=== PATIENT | male | born 1935 | race Two or more races ===

== ENCOUNTER 2020-04-02 14:20 | Inpatient (IN) | payer MEDICARE ==
[~2020-04-02] VITALS: Ht 172.7 cm; Wt 91.4 kg
[2020-04-02 16:22] VITALS: BP 162/75
[2020-04-02] MEDS ORDERED: HALO2TAB PO (16:43)
[2020-04-02] MEDS ORDERED: ATOR40TA59 PO (16:43)
[2020-04-02] MEDS ORDERED: DEXT1DRO7 OP (16:43)
[2020-04-02] MEDS ORDERED: TAMS0.4C97 PO (16:43)
[2020-04-02] MEDS ORDERED: THIA100T57 PO (16:43)
[2020-04-02] MEDS ORDERED: CYANOCOBALAMIN (16:43)
[2020-04-02] MEDS ORDERED: NAPR-634 PO (16:43)
[2020-04-02] MEDS ORDERED: QUET25TA5 PO (16:43)
[2020-04-02] MEDS ORDERED: MELA5TAB20 PO (16:43)
[2020-04-02] MEDS ORDERED: SODI45SP4 NS (16:43)
[2020-04-02] MEDS ORDERED: MAG-27 PO (16:43)
[2020-04-02] MEDS ORDERED: MEMA10TA PO (16:43)
[2020-04-02] MEDS ORDERED: AMLO-187 PO (16:43)
[2020-04-02] MEDS ORDERED: LOSA50TA86 PO (16:43)
[2020-04-02] MEDS ORDERED: TRAZ-120 PO (16:43)
[2020-04-02] MEDS ORDERED: FLUT1DIS3 IH (16:43)
[2020-04-02] MEDS ORDERED: LOPE2TAB27 PO (16:43)
[2020-04-02] MEDS ORDERED: ASPI-630 PO (16:43)
[2020-04-02] MEDS ORDERED: FLUT9.9S NS (16:43)
[2020-04-02] MEDS ORDERED: DONE5TAB14 PO (16:43)
[2020-04-02] MEDS ORDERED: ATEN25TA42 PO (16:43)
[2020-04-02] MEDS ORDERED: POLYVINYL ALCOHOL/POVIDONE/PF OPHTH SOLUTION DROPERETTE. OU PRN (17:00)
[2020-04-02] MEDS ORDERED: HALOPERIDOL 1 MG TABLET PO PRN (17:00)
[2020-04-02 18:23] LABS: BASO % 0 % (0-3); EOS # 0.1 x10^3/uL (0.0-0.7); EOS % 1 % (0-3); HEMATOCRIT 35.2 % (39.0-53.0); HEMOGLOBIN 11.6 g/dL (13.0-17.5); LYMPH # 0.7 x10^3/uL (1.0-4.8); LYMPH % 14 % (24-48); MEAN CORPUSCULAR HEMOGLOBIN 30 pg (25-35); MEAN CORPUSCULAR HGB CONC 33 g/dL (31-37); MEAN CORPUSCULAR VOLUME 92 fL (79-100); MONO # 0.4 x10^3/uL (0.0-1.1); MONO % 7 % (0-9); NEUT # 3.8 x10^3uL (1.8-7.7); NEUT % 77 % (31-73); PLATELET COUNT 211 x10^3/uL (140-400); RED CELL DISTRIBUTION WIDTH 14.3 % (11.5-14.5); WHITE BLOOD COUNT 4.9 x10^3/uL (4.0-11.0)
[2020-04-02 18:39] LABS: ALBUMIN 2.9 g/dL (3.4-5.0); ALBUMIN/GLOBULIN RATIO 0.9 (1.0-1.7); CALCIUM 8.3 mg/dL (8.5-10.1); CREATININE 0.9 mg/dL (0.7-1.3); GFR 80.8; MAGNESIUM 1.8 mg/dL (1.8-2.4); TOTAL BILIRUBIN 0.9 mg/dL (0.2-1.0); TOTAL PROTEIN 6.3 g/dL (6.4-8.2)
[2020-04-02 19:48] VITALS: BP 129/69
[2020-04-02] MEDS: LORazepam 1 MG TABLET PO PRN (20:16)
[2020-04-02] MEDS ORDERED: DONEPEZIL HCL 5 MG TABLET. PO SCH (21:00)
[2020-04-02 23:47] VITALS: BP 165/82
[2020-04-03] MEDS: LORazepam 1 MG TABLET PO PRN ×3 (01:18→08:36)
[2020-04-03 02:31] LABS: BILIRUBIN,URINE NEG (NEG); CLARITY,URINE CLEAR; COLOR,URINE YELLOW; GLUCOSE,URINE NEG (NEG)
[2020-04-03 02:32] LABS: BACTERIA,URINE 0 /HPF (0-FEW); NITRITE,URINE NEG (NEG); RBC,URINE 0 /HPF (0-2); WBC,URINE OCC /HPF (0-4)
[2020-04-03 06:19] VITALS: BP 172/94
[2020-04-03] MEDS ORDERED: LOSARTAN 50 MG TABLET. PO SCH (09:00)
[2020-04-03] MEDS ORDERED: ASPIRIN CHEWABLE 81 MG TABLET. PO SCH (09:00)
[2020-04-03] MEDS ORDERED: TAMSULOSIN 0.4 MG CAP.ER.24H. PO SCH (09:00)
[2020-04-03] MEDS ORDERED: amLODIPine BESYLATE 10 MG TABLET PO SCH (09:00)
[2020-04-03] MEDS ORDERED: ATENOLOL 25 MG TABLET PO SCH (09:00)
[2020-04-03] MEDS ORDERED: FUROSEMIDE 40 MG TABLET PO ONE (09:45)
--- NOTE | 2020-04-03 10:11 | HP ---
ADMIT DATE: 04/02/2020 ATTENDING PHYSICIAN: Dr. Dougherty. HISTORY OF PRESENT ILLNESS: We are asked to see this patient for a medical admission, screening prior to going to the Senior Behavior Unit. The patient is an 84-year-old gentleman, from a group home facility in [place]. He has been quite agitated and acting out. Does not remember much. Does not remember he had breakfast this morning. He is having hallucinations, impulse, agitated and restless. He is slated to go to the Senior Behavior Unit. PAST MEDICAL HISTORY: Gleaned from the chart. He cannot provide much history. He has had profound dementia, frequent falls, benign prostatic hypertrophy, hyperlipidemia, essential hypertension, herpes zoster, vitamin B12 deficiency, gout, chronic pedal edema and generalized debilitation. ALLERGIES: HE HAS ALLERGIES TO PENICILLIN, INDOMETHACIN AND LISINOPRIL NOTED. CURRENT MEDICATIONS: He is currently on scheduled amlodipine, aspirin, atenolol, Lipitor, Aricept, fluticasone, Haldol, loperamide, losartan, melatonin, Namenda, naproxen, Seroquel, Flomax, thiamine, trazodone. FAMILY HISTORY: Unobtainable. REVIEW OF SYSTEMS: Unobtainable. PHYSICAL EXAMINATION: GENERAL: When I saw him, this is a confused elderly gentleman who is somewhat cooperative. He is aware of person. INITIAL VITAL SIGNS: Showed a blood pressure between 129 and 172 systolic, heart rate between 80 and 100. He was afebrile, oxygen saturation 93% on room air. HEENT: Head is without trauma. Pupils are reactive. Sclerae are nonicteric. Oropharynx is clear. NECK: Supple, no bruits. LUNGS: Good breath sounds. CARDIOVASCULAR: Showed regular heart tones. No gallops. ABDOMEN: Soft, obese, protuberant. EXTREMITIES: Showed 3+ pitting edema extending up to his thighs. SKIN: Warm and dry. NEUROLOGIC: His speech is fluent. He is profoundly demented. We cannot assess his gait or complete the full neurologic exam due to his confusion. PERTINENT LABORATORY STUDIES: Urinalysis, pH is 8.0, specific gravity 1.020, hemoglobin 11.6 g/dL with a white count of 4900. Sodium is 141 mEq, creatinine is 0.9 mg percent, nonfasting blood sugar 159. Serology and coronavirus swabs are pending. ASSESSMENT: 1. An 84-year-old gentleman with profound dementia and behavioral issues slated to go to the Senior Behavior unit. 2. Labile hypertension. 3. Behavioral issues. 4. Degenerative arthritis. 5. Hyperlipidemia. PLAN: 1. I have reviewed his medications. I have stopped the Naprosyn, which causes fluid retention. 2. I have given him intermittent Lasix to help with the excess third space fluid in his ankle. 3. Continue other home meds. 4. Diet as tolerated. 5. Await COVID results, when that is negative, he can go upstairs to the Senior Behavior Unit. VARGAS DOUGHERTY MD DR: PAULINE/marlon JOB#: [id number] / [id number]
[2020-04-03 11:15] VITALS: BP 148/80
--- NOTE | 2020-04-03 12:25 | EKG ---
[address] [address] Test Date: 2020-04-03 Test Time: 12:03:30 Pat Name: ULISES SONI Department: Room: 107 A Gender: M Merchandising Director: : 1935 Requested By: VARGAS DOUGHERTY Order Number: [id number] Reading MD: Measurements Intervals [place] Rate: 58 P: 39 MS: 150 QRS: -36 QRSD: 94 T: -54 QT: 456 QTc: 451 Interpretive Statements SINUS RHYTHM ABNORMAL LEFT AXIS DEVIATION LEFT ANTERIOR FASCICULAR BLOCK ST & T ABNORMALITY, CONSIDER ANTEROLATERAL ISCHEMIA OR LEFT VENTRICULAR STRAIN T ABNORMALITY IN ANTERIOR LEADS INFERIOR LEADS ABNORMAL ECG RI6.01 No previous ECG available for comparison
--- NOTE | 2020-04-03 13:48 | DS ---
DATE OF DISCHARGE: 04/03/2020 ATTENDING PHYSICIAN: Dr. Dougherty. FINAL DISCHARGE DIAGNOSES: 1. An 84-year-old gentleman with profound dementia and behavioral issues. 2. Labile hypertension. 3. Degenerative arthritis. 4. Hyperlipidemia. HISTORY AND PHYSICAL: The patient is an 84-year-old gentleman slated to go to the Senior Behavior Unit. He has several medical issues, profoundly demented and forgetful. PHYSICAL EXAMINATION: Please see the dictated note. PERTINENT LABORATORY AND X-RAY STUDIES: On admission, his hemoglobin was 11.6 g/dL with a white count of 4900. Chemistry panel unremarkable. Nonfasting blood sugar 159. Serology negative for coronavirus. COURSE IN THE HOSPITAL: The patient was admitted. Home meds were restarted. I held his Naprosyn because of fluid retention. I gave him a dose of Lasix. Diet was administered. Later that afternoon his coronavirus swab came back negative, he was ready for discharge to the Senior Behavior Unit. His discharge meds are unchanged. He will continue his amlodipine, aspirin, atenolol, Lipitor, artificial tears, Aricept, fluticasone, Haldol, loperamide, losartan, melatonin, Seroquel, Namenda, Flomax, thiamine and trazodone dose unchanged. For now, we held his Naprosyn sodium. His prognosis is fair. He was discharged then from our hospital to the Senior Behavior Unit in stable condition with explicit directed followup care. VARGAS DOUGHERTY MD DR: PAULINE/marlon JOB#: [id number] / [id number] YOLANDA Carrera MD
[2020-04-03 21:43] LABS: THYROID STIM HORMONE (TSH) 2.098 uIU/mL (0.358-3.740)
[2020-04-04 01:07] LABS: HEMOGLOBIN A1C 5.2 % (4.8-5.6)
== END 2020-04-03 14:24 | DRG 884 ==
LOC: 1 SOUTH 14:20
PROVIDERS: ADMIT Hospitalist; ATTEND Hospitalist
DX: F03.91 Unspecified dementia, unspecified severity, with behavioral disturbance (principal); N40.0 Benign prostatic hyperplasia without lower urinary tract symptoms; R29.6 Repeated falls; E78.5 Hyperlipidemia, unspecified; I10 Essential (primary) hypertension; M19.90 Unspecified osteoarthritis, unspecified site; M1A.9XX0 Chronic gout, unspecified, without tophus (tophi); Z20.822 Contact with and (suspected) exposure to COVID-19; Z88.0 Allergy status to penicillin; Z88.8 Allergy status to other drugs, medicaments and biological substances
CPT/HCPCS: 36415; 80053; 80061; 81001; 82306; 82607; 83036; 83735; 84443; 85025; 85379; 86592; 93005; U0003

== ENCOUNTER 2020-04-03 13:15 | Inpatient (IN) | payer MEDICARE ==
[~2020-04-03] VITALS: Ht 172.7 cm; Wt 87.1 kg
[~2020-04-03 13:15] MED LIST: AMLO-187 PO; ASPI-630 PO; ATEN25TA42 PO; ATOR40TA59 PO; CYANOCOBALAMIN; DEXT1DRO7 OP; DONE5TAB14 PO; FLUT1DIS3 IH; FLUT9.9S NS; HALO2TAB PO; LOPE2TAB27 PO; LOSA50TA86 PO; MAG-27 PO; MELA5TAB20 PO; MEMA10TA PO; NAPR-634 PO; QUET25TA5 PO; SODI45SP4 NS; TAMS0.4C97 PO; THIA100T57 PO; TRAZ-120 PO
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
--- NOTE | 2020-04-03 15:18 | NUR ---
Sebastián has CARE medicare part C plan with railroad correction. Call placed to CARE at [phone] to inform of Sebastián's admission to [facility]. Per fire claims adjuster Kvng Meade, CARE insurance will supplement Medicare's approved amount and Medicare will be primary. CARE will be used as a supplemental policy. No pre-authorization or concurrent reviews will be required.
[2020-04-03] MEDS ORDERED: SODIUM CHLORIDE 0.65% NASAL SPRAY 45ML BOTTLE. NS PRN (15:30)
[2020-04-03 15:42] VITALS: BP 137/80
[2020-04-03] MEDS ORDERED: LOPERAMIDE 2 MG CAPSULE PO PRN (15:45)
[2020-04-03] MEDS ORDERED: POLYVINYL ALCOHOL/POVIDONE/PF OPHTH SOLUTION DROPERETTE. OD PRN (15:45)
[2020-04-03] MEDS ORDERED: MAG HYDROX/AL HYDROX/SIMETH 30 ML ORAL.SUSP PO PRN ×2 (15:45→16:30)
[2020-04-03] MEDS ORDERED: HALOPERIDOL 1 MG TABLET PO PRN (15:45)
[2020-04-03] MEDS ORDERED: METHYL SALICYLATE/MENTHOL TOPICAL OINTMENT 57GM TUBE. TP PRN (16:30)
[2020-04-03] MEDS ORDERED: MAGNESIUM HYDROXIDE 2,400 MG/30 ML ORAL.SUSP. PO PRN (16:30)
[2020-04-03] MEDS: ATORVASTATIN CALCIUM 20 MG TABLET PO SCH (20:22)
[2020-04-03] MEDS: DONEPEZIL HCL 5 MG TABLET. PO SCH (20:22)
[2020-04-03] MEDS: MEMANTINE 10 MG TABLET. PO SCH (20:22)
[2020-04-03] MEDS: traZODone 50 MG TABLET. PO SCH (20:22)
[2020-04-03] MEDS: QUEtiapine 25 MG TABLET. PO SCH (20:23)
[2020-04-03] MEDS ORDERED: MELATONIN 3 MG TABLET PO SCH (21:00)
--- NOTE | 2020-04-03 21:05 | PDOC ---
Exam Note: Khanh Note: Please also refer to the separate dictated note~for this date of service dictated separately.~Patient seen individually. Discussed the patient with Nursing staff reviewed the chart.~Reviewed interim history and current functioning. Reviewed vital signs,~Labs/ Radiology~and current medications noted below. Continue current treatment with the changes noted in the dictated addendum note Assessment: Vital Signs/I&O: Vital Signs Date Time Temp Pulse Resp B/P (MAP) Pulse Ox O2 Delivery O2 Flow Rate FiO2 04/03/20 15:42 98.0 73 16 137/80 (99) 96 Current Medications: Meds: Current Medications Medications (Trade) Dose Ordered Sig/Zohaib Route PRN Reason Start Time Stop Time Status Last Admin Dose Admin Memantine (Namenda) 10 mg BID PO 04/03/20 21:00 04/03/20 20:22 Quetiapine Fumarate (SEROquel) 75 mg QHS PO 04/03/20 21:00 04/03/20 20:23 Trazodone HCl (Desyrel) 50 mg QHS PO 04/03/20 21:00 04/03/20 20:22 Atorvastatin Calcium (Lipitor) 40 mg QHS PO 04/03/20 21:00 04/03/20 20:22 Donepezil HCl (Aricept) 5 mg HS PO 04/03/20 21:00 04/03/20 20:22 Melatonin (Melatonin) 3 mg QHS PO 04/03/20 21:00 04/03/20 20:23 I have reviewed the current psychotropics carefully including drug interactions. Risk benefit ratio favors no change other than as noted in my dictated progress note. Diagnosis: Problems: (1) AMS (altered mental status) YOLANDA BURGESS MD Apr 03, 2020 21:05
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
--- NOTE | 2020-04-03 23:15 | NUR ---
Nursing Note Pt compliant with meds, confused attempts to get out of chair at times. Significant edema to his lower extremities, no crackles to lungs no SOA.
[2020-04-04 06:02] VITALS: BP 144/78
[2020-04-04] MEDS: THIAMINE 100 MG TABLET. PO SCH (09:31)
[2020-04-04] MEDS: FLUTICASONE 50MCG/NASAL SPRAY 16GM BOTTLE. NS SCH (09:31)
[2020-04-04] MEDS: FLUTICASONE/VILANTEROL 200/25 INHALER. INH SCH (09:31)
[2020-04-04] MEDS: ASPIRIN CHEWABLE 81 MG TABLET. PO SCH (09:31)
[2020-04-04] MEDS: LOSARTAN 50 MG TABLET. PO SCH (09:31)
[2020-04-04] MEDS: TAMSULOSIN 0.4 MG CAP.ER.24H. PO SCH (09:32)
[2020-04-04] MEDS: amLODIPine BESYLATE 10 MG TABLET PO SCH (09:32)
[2020-04-04] MEDS: MEMANTINE 10 MG TABLET. PO SCH ×2 (09:33→20:25)
[2020-04-04] MEDS: ATENOLOL 25 MG TABLET PO SCH (09:33)
[2020-04-04 09:58] LABS: BASO % 1 % (0-3); EOS % 1 % (0-3); HEMATOCRIT 37.8 % (39.0-53.0); HEMOGLOBIN 12.6 g/dL (13.0-17.5); LYMPH # 1.1 x10^3/uL (1.0-4.8); LYMPH % 19 % (24-48); MEAN CORPUSCULAR HEMOGLOBIN 31 pg (25-35); MEAN CORPUSCULAR HGB CONC 33 g/dL (31-37); MEAN CORPUSCULAR VOLUME 92 fL (79-100); MONO # 0.5 x10^3/uL (0.0-1.1); MONO % 8 % (0-9); NEUT # 4.3 x10^3uL (1.8-7.7); NEUT % 72 % (31-73); PLATELET COUNT 259 x10^3/uL (140-400); RED BLOOD COUNT 4.11 x10^6/uL (4.30-5.70); RED CELL DISTRIBUTION WIDTH 14.1 % (11.5-14.5); WHITE BLOOD COUNT 5.9 x10^3/uL (4.0-11.0)
[2020-04-04 10:15] LABS: ALBUMIN 3.1 g/dL (3.4-5.0); ALBUMIN/GLOBULIN RATIO 0.9 (1.0-1.7); CALCIUM 9.1 mg/dL (8.5-10.1); CREATININE 1.1 mg/dL (0.7-1.3); GFR 64.1; POTASSIUM 3.4 mmol/L (3.5-5.1); TOTAL BILIRUBIN 1.3 mg/dL (0.2-1.0); TOTAL PROTEIN 6.7 g/dL (6.4-8.2)
[2020-04-04] MEDS: ACETAMINOPHEN 325 MG TABLET PO PRN (12:51)
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
[2020-04-04 16:01] VITALS: BP 132/64
--- NOTE | 2020-04-04 17:49 | NUR ---
Nursing note: Pt has been very restless this shift. He was med compliant and cooperative this morning, but quickly became agitated with redirection when attempting to get out of his wheelchair unassisted. He was complaining that his wound on his buttocks was bothering him and he wanted to lay down. Pt was assisted to the mattress in the quiet room where he proceeded to yell out and stand up on the mattress and attempt to walk on his own. PRN was given at that time with no effect. Pt continued to yell out and be agitated after lunch. Another PRN given with very little effect. Pt continued to get up and down from his wheelchair. Pt showed that he was able to walk and was then given a walker to assist him. He has been more pleasant since making this switch and is able to be redirected a little easier. He is currently sitting quietly in the day room. Will continue to monitor.
[2020-04-04] MEDS: ATORVASTATIN CALCIUM 20 MG TABLET PO SCH (20:24)
[2020-04-04] MEDS: DONEPEZIL HCL 5 MG TABLET. PO SCH (20:25)
[2020-04-04] MEDS: QUEtiapine 25 MG TABLET. PO SCH (20:25)
[2020-04-04] MEDS: traZODone 50 MG TABLET. PO SCH (20:25)
[2020-04-04] MEDS: MIRTAZAPINE 7.5 MG TABLET. PO SCH (20:26)
--- NOTE | 2020-04-04 21:05 | PDOC ---
Exam Note: Khanh Note: Please also refer to the separate dictated note~for this date of service dictated separately.~Patient seen individually. Discussed the patient with Nursing staff reviewed the chart.~Reviewed interim history and current functioning. Reviewed vital signs,~Labs/ Radiology~and current medications noted below. Continue current treatment with the changes noted in the dictated addendum note Assessment: Vital Signs/I&O: Vital Signs Date Time Temp Pulse Resp B/P (MAP) Pulse Ox O2 Delivery O2 Flow Rate FiO2 04/04/20 16:01 98.6 62 18 132/64 (86) 96 I & O 04/03/20 04/03/20 04/04/20 15:00 23:00 07:00 Intake Total 360 ml Balance 360 ml Labs: Laboratory Tests Test 04/04/20 09:30 White Blood Count 5.9 x10^3/uL (4.0-11.0) Red Blood Count 4.11 x10^6/uL (4.30-5.70) L Hemoglobin 12.6 g/dL (13.0-17.5) L Hematocrit 37.8 % (39.0-53.0) L Mean Corpuscular Volume 92 fL (79-100) Mean Corpuscular Hemoglobin 31 pg (25-35) Mean Corpuscular Hemoglobin Concent 33 g/dL (31-37) Red Cell Distribution Width 14.1 % (11.5-14.5) Platelet Count 259 x10^3/uL (140-400) Neutrophils (%) (Auto) 72 % (31-73) Lymphocytes (%) (Auto) 19 % (24-48) L Monocytes (%) (Auto) 8 % (0-9) Eosinophils (%) (Auto) 1 % (0-3) Basophils (%) (Auto) 1 % (0-3) Neutrophils # (Auto) 4.3 x10^3uL (1.8-7.7) Lymphocytes # (Auto) 1.1 x10^3/uL (1.0-4.8) Monocytes # (Auto) 0.5 x10^3/uL (0.0-1.1) Eosinophils # (Auto) 0.0 x10^3/uL (0.0-0.7) Basophils # (Auto) 0.0 x10^3/uL (0.0-0.2) Sodium Level 141 mmol/L (136-145) Potassium Level 3.4 mmol/L (3.5-5.1) L Chloride Level 104 mmol/L (98-107) Carbon Dioxide Level 30 mmol/L (21-32) Anion Gap 7 (6-14) Blood Urea Nitrogen 13 mg/dL (8-26) Creatinine 1.1 mg/dL (0.7-1.3) Estimated GFR (Cockcroft-Gault) 64.1 BUN/Creatinine Ratio 12 (6-20) Glucose Level 112 mg/dL (70-99) H Calcium Level 9.1 mg/dL (8.5-10.1) Iron Level 64 ug/dL (65-175) L Total Iron Binding Capacity 272 ug/dL (250-450) Iron Saturation 24 % (15-34) Total Bilirubin 1.3 mg/dL (0.2-1.0) H Aspartate Amino Transferase (AST) 19 U/L (15-37) Alanine Aminotransferase (ALT) 26 U/L (16-63) Alkaline Phosphatase 100 U/L (46-116) Total Protein 6.7 g/dL (6.4-8.2) Albumin 3.1 g/dL (3.4-5.0) L Albumin/Globulin Ratio 0.9 (1.0-1.7) L Current Medications: Meds: Laboratory Tests Test 04/04/20 09:30 White Blood Count 5.9 x10^3/uL Red Blood Count 4.11 x10^6/uL Hemoglobin 12.6 g/dL Hematocrit 37.8 % Mean Corpuscular Volume 92 fL Mean Corpuscular Hemoglobin 31 pg Mean Corpuscular Hemoglobin Concent 33 g/dL Red Cell Distribution Width 14.1 % Platelet Count 259 x10^3/uL Neutrophils (%) (Auto) 72 % Lymphocytes (%) (Auto) 19 % Monocytes (%) (Auto) 8 % Eosinophils (%) (Auto) 1 % Basophils (%) (Auto) 1 % Neutrophils # (Auto) 4.3 x10^3uL Lymphocytes # (Auto) 1.1 x10^3/uL Monocytes # (Auto) 0.5 x10^3/uL Eosinophils # (Auto) 0.0 x10^3/uL Basophils # (Auto) 0.0 x10^3/uL Sodium Level 141 mmol/L Potassium Level 3.4 mmol/L Chloride Level 104 mmol/L Carbon Dioxide Level 30 mmol/L Anion Gap 7 Blood Urea Nitrogen 13 mg/dL Creatinine 1.1 mg/dL Estimated GFR (Cockcroft-Gault) 64.1 BUN/Creatinine Ratio 12 Glucose Level 112 mg/dL Calcium Level 9.1 mg/dL Iron Level 64 ug/dL Total Iron Binding Capacity 272 ug/dL Iron Saturation 24 % Total Bilirubin 1.3 mg/dL Aspartate Amino Transf (AST/SGOT) 19 U/L Alanine Aminotransferase (ALT/SGPT) 26 U/L Alkaline Phosphatase 100 U/L Total Protein 6.7 g/dL Albumin 3.1 g/dL Albumin/Globulin Ratio 0.9 Current Medications Medications (Trade) Dose Ordered Sig/Zohaib Route PRN Reason Start Time Stop Time Status Last Admin Dose Admin Amlodipine Besylate (Norvasc) 10 mg DAILY PO 04/04/20 09:00 04/04/20 09:32 Aspirin (Aspirin Chewable) 81 mg DAILY PO 04/04/20 09:00 04/04/20 09:31 Atenolol (Tenormin) 25 mg DAILY PO 04/04/20 09:00 04/04/20 09:33 Haloperidol (Haldol) 2.5 mg PRN Q8HRS PRN PO delusions 04/03/20 15:45 04/04/20 18:46 DC 04/04/20 10:16 Losartan Potassium (Cozaar) 50 mg DAILY PO 04/04/20 09:00 04/04/20 09:31 Memantine (Namenda) 10 mg BID PO 04/03/20 21:00 04/04/20 20:25 Quetiapine Fumarate (SEROquel) 75 mg QHS PO 04/03/20 21:00 04/04/20 20:25 Tamsulosin HCl (Flomax) 0.8 mg DAILY PO 04/04/20 09:00 04/04/20 09:32 Trazodone HCl (Desyrel) 50 mg QHS PO 04/03/20 21:00 04/04/20 20:25 Atorvastatin Calcium (Lipitor) 40 mg QHS PO 04/03/20 21:00 04/04/20 20:24 Artificial Tears (Refresh Classic) 1 drop PRN Q15MIN PRN OD DRY EYE 04/03/20 15:45 Donepezil HCl (Aricept) 5 mg HS PO 04/03/20 21:00 04/04/20 20:25 Fluticasone Propionate (Flonase) 1 spray DAILY NS 04/04/20 09:00 04/04/20 09:31 Fluticasone/ Vilanterol (Breo Ellipta 200-25 Mcg) 1 puff DAILY INH 04/04/20 09:00 04/04/20 09:31 Loperamide HCl (Imodium) 2 mg PRN Q15MIN PRN PO DIARRHEA 04/03/20 15:45 Al Hydroxide/Mg Hydroxide (Mylanta Plus Xs) 30 ml PRN Q2HR PRN PO DYSPEPSIA 04/03/20 15:45 Melatonin (Melatonin) 3 mg QHS PO 04/03/20 21:00 04/04/20 18:46 DC 04/03/20 20:23 Thiamine HCl (Vitamin B-1) 100 mg DAILY PO 04/04/20 09:00 04/04/20 09:31 Sodium Chloride (Saline Mist Nasal) 2 clifford PRN BID PRN NS NASAL CONGESTION 04/03/20 15:30 Acetaminophen (Tylenol) 650 mg PRN Q6HRS PRN PO MILD PAIN / TEMP > 100.3'F 04/03/20 16:30 04/04/20 12:51 Multi-Ingredient Ointment (Analgesic [place]) 1 clifford PRN QID PRN TP MUSCLE PAIN 04/03/20 16:30 Al Hydroxide/Mg Hydroxide (Mylanta Plus Xs) 15 ml PRN AFTMEALHC PRN PO DYSPEPSIA 04/03/20 16:30 04/04/20 08:38 DC Magnesium Hydroxide (Milk Of Magnesia) 2,400 mg PRN QHS PRN PO CONSTIPATION 04/03/20 16:30 Vitamin D (Vitamin D3) 50,000 unit WEEKLY PO 04/05/20 09:00 Mirtazapine (Remeron) 7.5 mg QHS PO 04/04/20 21:00 04/04/20 20:26 Quetiapine Fumarate (SEROquel) 12.5 mg 0900,1300,1700 PO 04/05/20 09:00 Olanzapine (ZyPREXA ZYDIS) 2.5 mg PRN Q2HRS PRN PO PSYCHOSIS 04/04/20 18:45 Current Medications Medications (Trade) Dose Ordered Sig/Zohaib Route PRN Reason Start Time Stop Time Status Last Admin Dose Admin Amlodipine Besylate (Norvasc) 10 mg DAILY PO 04/04/20 09:00 04/04/20 09:32 Aspirin (Aspirin Chewable) 81 mg DAILY PO 04/04/20 09:00 04/04/20 09:31 Atenolol (Tenormin) 25 mg DAILY PO 04/04/20 09:00 04/04/20 09:33 Losartan Potassium (Cozaar) 50 mg DAILY PO 04/04/20 09:00 04/04/20 09:31 Tamsulosin HCl (Flomax) 0.8 mg DAILY PO 04/04/20 09:00 04/04/20 09:32 Fluticasone Propionate (Flonase) 1 spray DAILY NS 04/04/20 09:00 04/04/20 09:31 Fluticasone/ Vilanterol (Breo Ellipta 200-25 Mcg) 1 puff DAILY INH 04/04/20 09:00 04/04/20 09:31 Thiamine HCl (Vitamin B-1) 100 mg DAILY PO 04/04/20 09:00 04/04/20 09:31 Mirtazapine (Remeron) 7.5 mg QHS PO 04/04/20 21:00 04/04/20 20:26 I have reviewed the current psychotropics carefully including drug interactions. Risk benefit ratio favors no change other than as noted in my dictated progress note. Diagnosis: Problems: (1) Major neurocognitive disorder (2) Dementia in Alzheimer's disease with delusions (3) Dementia in Alzheimer's disease with depression (4) Dementia of the Alzheimer's type with early onset with behavioral disturbance (5) Dementia, vascular, with delusions (6) Dementia, vascular, with depression (7) Anxiety disorder, unspecified (8) Impulse control disorder, unspecified YOLANDA BURGESS MD Apr 04, 2020 21:05
[2020-04-04 21:07] LABS: THYROXINE 5.4 ug/dL (4.5-12.0)
[2020-04-04] MEDS ORDERED: POTASSIUM CHLORIDE 20 MEQ TABLET.ER. PO ONE (21:30)
--- NOTE | 2020-04-04 21:48 | CONS ---
DATE OF CONSULTATION: 04/04/2020 REASON FOR CONSULTATION: Medical management. HISTORY OF PRESENT ILLNESS: The patient is an 84-year-old male patient who was admitted originally to [address] [place] [address] and was screened for COVID by PCR, trended out to be negative and was transferred to [facility] for inpatient psychiatric stabilization. The patient was referred to this unit from [facility] by his primary care physician on account of worsening confusion, anxiety and agitation. The patient has been yelling out, restless, attempting to transfer himself and he has significant fall risk. He is unable to sit still screaming at others, anxious, agitated and restless. He puts his hands over the racing car driver's eyes in the car impulsively as he has also marked insomnia and has failed outpatient psychiatric intervention. The patient was referred to this unit for inpatient psychiatric stabilization. PAST MEDICAL HISTORY: Significant for hypertension, hyperlipidemia, benign prostatic hypertrophy, herpes zoster, B12 deficiency, gout, and bilateral lower extremity edema. PAST SURGICAL HISTORY: Unremarkable. SOCIAL HISTORY: The patient is a resident at [facility]. He does not smoke, drink alcohol or use any recreational drugs. FAMILY HISTORY: Noncontributory. ALLERGIES: He is allergic to INDOMETHACIN, LISINOPRIL AND PENICILLIN. MEDICATIONS: He is currently on following medications: He is on Aricept 5 mg at bedtime, tamsulosin 0.8 mg at bedtime, atorvastatin calcium 40 mg at bedtime, atenolol 25 mg once a day, amlodipine besylate 10 mg once a day, losartan potassium 50 mg once a day, aspirin 81 mg chewable tablet once a day, trazodone 50 mg at bedtime, haloperidol 2.5 mg every 8 hours and quetiapine fumarate 75 mg at bedtime, Namenda 10 mg twice a day, Advair Diskus 250/50 one puff twice a day, Flonase 1 spray to each nostril once a day, artificial tears 1 drop to both eyes as needed, saline spray to both nostrils twice a day, ____ liquid 15 mL after meals and as needed, loperamide 2 mg, takes 2 tablets every 4 hours as needed for diarrhea, thiamine 100 mg once a day, melatonin 5 mg at bedtime. REVIEW OF SYSTEMS: Unobtainable. PHYSICAL EXAMINATION: GENERAL: On examining him, he looked well and was clearly in no apparent respiratory distress. No pallor, jaundice, cyanosis or thyromegaly. No jugular venous distention. No lower limb edema. VITAL SIGNS: His heart rate was 62, blood pressure was 132/64, temperature was 98.6, respiratory rate was 18 and oxygen saturation was 96% on room air. HEAD, EYES, EARS, NOSE AND THROAT: Showed normocephalic, atraumatic. NECK: Supple. HEART: Normal first and second heart sounds. No gallop or murmur. CHEST: Clear to auscultation. No crepitation or rhonchi. ABDOMEN: Distended, soft, nontender. NEUROLOGIC: He is demented, without any obvious lateralizing sign, but mostly bedbound, chair bound. LABORATORY DATA: Showed a serum sodium 141, potassium 3.4, chloride 104, bicarbonate 30, anion gap of 7, BUN 13, creatinine 1.1, estimated GFR was 64 mL per minute. Her glucose was 112, calcium was 9.1. Total serum iron, TIBC and iron saturation are all consistent with replenished iron stores. Total bilirubin was 1.3. AST, ALT, alkaline phosphatase were normal. His total protein 6.7, albumin 3.1. His white cell count was 5900, hemoglobin 12.6, hematocrit 37.8, MCV 92, and platelet count 259,000. His serum triglycerides were 65, total cholesterol 94, LDL cholesterol 21, VLDL was 13, HDL was 60 and the ratio was 1. His vitamin B12 is still pending at the time of this dictation. His 25-hydroxy vitamin D was low at 11.3 and TSH was normal at 2.098. His Treponema pallidum antibodies were nonreactive and coronavirus-2 PCR was nonreactive. His urinalysis was essentially unremarkable and his D-dimer was high at 4.13. IMPRESSION: In summary, this is an 84-year-old male patient, a resident at [facility], who was referred to this facility on account of worsening confusion, anxiety, agitation. The patient has been yelling out, restless, attempting to transfer himself and has a significant fall risk. The patient is known to have major neurocognitive disorder, Alzheimer, vascular, with delusion, depression, behavioral disturbances. Medically, the patient has benign prostatic hypertrophy, hypertension, hyperlipidemia, B12 deficiency, gout. The only abnormality on his lab work is vitamin D is low, for which I will start him on cholecalciferol. Thank you, Dr. Bella, for allowing me to participate in the care of this patient. ISRRAEL CHEEK MD DR: [email or web address]/marlon JOB#: [id number] / [id number]
--- NOTE | 2020-04-04 21:59 | NUR ---
Nursing Note Pt attempts to get up intermittently, confused needs to sit up and start the day. Reminded him it's later and time to rest. He is insistent that he needs to get up. Potassium noted to be 3.4, 40 MEQ given with 20 MEQ daily.
[2020-04-05 05:19] VITALS: BP 124/75
[2020-04-05] MEDS: ACETAMINOPHEN 325 MG TABLET PO PRN (06:38)
--- NOTE | 2020-04-05 07:36 | NUR ---
Wound Care Patient seen on 04/03 on 1S. Note from assessment: Wound Type/Assessment: patient seen per wound care consult. see wound assessment. patient has a stage 2 pressure ulcer to the right buttock- the wound was cleaned with cleansing wipes and Calazime cream applied at this time, recommendations to continue with Calazime, prn. Treatment Recommendations/Plan: Recommendations of Calazime cream, prn to the right buttock. Offloading surface/device: Recommendations of a wheelchair cushion and patient to turn every 2 hours when in bed, patient sitting in chair at this time. Discharge Recommendations for dressings: Note left for nurse regarding the POC and the recommendations of a wheelchair cushion for patient. wound care will continue to f/u for changes on 04/10
[2020-04-05] MEDS: ASPIRIN CHEWABLE 81 MG TABLET. PO SCH (08:33)
[2020-04-05] MEDS: amLODIPine BESYLATE 10 MG TABLET PO SCH (08:33)
[2020-04-05] MEDS: LOSARTAN 50 MG TABLET. PO SCH (08:34)
[2020-04-05] MEDS: TAMSULOSIN 0.4 MG CAP.ER.24H. PO SCH (08:34)
[2020-04-05] MEDS: THIAMINE 100 MG TABLET. PO SCH (08:34)
[2020-04-05] MEDS: ATENOLOL 25 MG TABLET PO SCH (08:34)
[2020-04-05] MEDS: MEMANTINE 10 MG TABLET. PO SCH ×2 (08:34→19:42)
[2020-04-05] MEDS: QUEtiapine 25 MG TABLET. PO SCH ×5 (08:36→19:42)
[2020-04-05] MEDS: FLUTICASONE/VILANTEROL 200/25 INHALER. INH SCH (08:36)
[2020-04-05] MEDS: CHOLECALCIFEROL (VITAMIN D3) 50,000 UNIT CAPSULE PO SCH (08:36)
[2020-04-05] MEDS: FLUTICASONE 50MCG/NASAL SPRAY 16GM BOTTLE. NS SCH (08:36)
[2020-04-05] MEDS: POTASSIUM CHLORIDE 20 MEQ TABLET.ER. PO SCH (08:36)
--- NOTE | 2020-04-05 08:36 | PDOC ---
Exam Note: Khanh Note: This note is a late entry for 04/04/2020 covers elements not covered in my initial note. Subjective: The patient was seen face to face in the evening of 04/04/2020 with Corina HINSON, discussed and reviewed the chart. He slept 7-3/4 hours previous night. The patient has been restless previous night and during the day today. There is a staff member sitting with him because he tries to get out of his wheelchair and is a fall risk. He did have a bowel movement, and is compliant with a.m. medications, restless in the afternoon, complaining of bottom hurting. Haldol p.r.n. had not effect. Review of Systems: Ambulation impaired. No CV, , pulmonary, eye, ENT system symptoms on review. Mental Status Exam: The patient is oriented to himself. Insight and judgement, recent and remote memory, attention and concentration, fund of knowledge is poor consistent with his diagnosis. Laboratory Data: Reviewed. Impression: Major neurocognitive disorder Alzheimer vascular with delusion, depression, behavioral disturbance. Anxiety disorder unspecified. Impulse control disorder unspecified. Plan: We will start Seroquel 12.5 mg 9 a.m., 1 p.m. 5 p.m. Stop the Haldol. Change melatonin 5 mg h.s. to Remeron 7.5 mg h.s. Continue Seroquel 75 mg h.s. We make consider Depakote as a mood stabilizer. Adjust further as clinically indicated. Assessment: Vital Signs/I&O: Vital Signs Date Time Temp Pulse Resp B/P (MAP) Pulse Ox O2 Delivery O2 Flow Rate FiO2 04/05/20 05:19 97.6 74 18 124/75 (91) 96 I & O 04/04/20 04/04/20 04/05/20 14:59 22:59 06:59 Intake Total 720 ml 600 ml Balance 720 ml 600 ml Labs: Laboratory Tests Test 04/04/20 09:30 White Blood Count 5.9 x10^3/uL (4.0-11.0) Red Blood Count 4.11 x10^6/uL (4.30-5.70) L Hemoglobin 12.6 g/dL (13.0-17.5) L Hematocrit 37.8 % (39.0-53.0) L Mean Corpuscular Volume 92 fL (79-100) Mean Corpuscular Hemoglobin 31 pg (25-35) Mean Corpuscular Hemoglobin Concent 33 g/dL (31-37) Red Cell Distribution Width 14.1 % (11.5-14.5) Platelet Count 259 x10^3/uL (140-400) Neutrophils (%) (Auto) 72 % (31-73) Lymphocytes (%) (Auto) 19 % (24-48) L Monocytes (%) (Auto) 8 % (0-9) Eosinophils (%) (Auto) 1 % (0-3) Basophils (%) (Auto) 1 % (0-3) Neutrophils # (Auto) 4.3 x10^3uL (1.8-7.7) Lymphocytes # (Auto) 1.1 x10^3/uL (1.0-4.8) Monocytes # (Auto) 0.5 x10^3/uL (0.0-1.1) Eosinophils # (Auto) 0.0 x10^3/uL (0.0-0.7) Basophils # (Auto) 0.0 x10^3/uL (0.0-0.2) Sodium Level 141 mmol/L (136-145) Potassium Level 3.4 mmol/L (3.5-5.1) L Chloride Level 104 mmol/L (98-107) Carbon Dioxide Level 30 mmol/L (21-32) Anion Gap 7 (6-14) Blood Urea Nitrogen 13 mg/dL (8-26) Creatinine 1.1 mg/dL (0.7-1.3) Estimated GFR (Cockcroft-Gault) 64.1 BUN/Creatinine Ratio 12 (6-20) Glucose Level 112 mg/dL (70-99) H Calcium Level 9.1 mg/dL (8.5-10.1) Iron Level 64 ug/dL (65-175) L Total Iron Binding Capacity 272 ug/dL (250-450) Iron Saturation 24 % (15-34) Total Bilirubin 1.3 mg/dL (0.2-1.0) H Aspartate Amino Transferase (AST) 19 U/L (15-37) Alanine Aminotransferase (ALT) 26 U/L (16-63) Alkaline Phosphatase 100 U/L (46-116) Total Protein 6.7 g/dL (6.4-8.2) Albumin 3.1 g/dL (3.4-5.0) L Albumin/Globulin Ratio 0.9 (1.0-1.7) L Thyroxine (T4) 5.4 ug/dL (4.5-12.0) Total Triiodothyronine (TT3) 84 ng/dL (71-180) Current Medications: Meds: Laboratory Tests Test 04/04/20 09:30 White Blood Count 5.9 x10^3/uL Red Blood Count 4.11 x10^6/uL Hemoglobin 12.6 g/dL Hematocrit 37.8 % Mean Corpuscular Volume 92 fL Mean Corpuscular Hemoglobin 31 pg Mean Corpuscular Hemoglobin Concent 33 g/dL Red Cell Distribution Width 14.1 % Platelet Count 259 x10^3/uL Neutrophils (%) (Auto) 72 % Lymphocytes (%) (Auto) 19 % Monocytes (%) (Auto) 8 % Eosinophils (%) (Auto) 1 % Basophils (%) (Auto) 1 % Neutrophils # (Auto) 4.3 x10^3uL Lymphocytes # (Auto) 1.1 x10^3/uL Monocytes # (Auto) 0.5 x10^3/uL Eosinophils # (Auto) 0.0 x10^3/uL Basophils # (Auto) 0.0 x10^3/uL Sodium Level 141 mmol/L Potassium Level 3.4 mmol/L Chloride Level 104 mmol/L Carbon Dioxide Level 30 mmol/L Anion Gap 7 Blood Urea Nitrogen 13 mg/dL Creatinine 1.1 mg/dL Estimated GFR (Cockcroft-Gault) 64.1 BUN/Creatinine Ratio 12 Glucose Level 112 mg/dL Calcium Level 9.1 mg/dL Iron Level 64 ug/dL Total Iron Binding Capacity 272 ug/dL Iron Saturation 24 % Total Bilirubin 1.3 mg/dL Aspartate Amino Transf (AST/SGOT) 19 U/L Alanine Aminotransferase (ALT/SGPT) 26 U/L Alkaline Phosphatase 100 U/L Total Protein 6.7 g/dL Albumin 3.1 g/dL Albumin/Globulin Ratio 0.9 Thyroxine (T4) 5.4 ug/dL Total Triiodothyronine 84 ng/dL Current Medications Medications (Trade) Dose Ordered Sig/Zohaib Route PRN Reason Start Time Stop Time Status Last Admin Dose Admin Amlodipine Besylate (Norvasc) 10 mg DAILY PO 04/04/20 09:00 04/04/20 09:32 Aspirin (Aspirin Chewable) 81 mg DAILY PO 04/04/20 09:00 04/04/20 09:31 Atenolol (Tenormin) 25 mg DAILY PO 04/04/20 09:00 04/04/20 09:33 Haloperidol (Haldol) 2.5 mg PRN Q8HRS PRN PO delusions 04/03/20 15:45 04/04/20 18:46 DC 04/04/20 10:16 Losartan Potassium (Cozaar) 50 mg DAILY PO 04/04/20 09:00 04/04/20 09:31 Memantine (Namenda) 10 mg BID PO 04/03/20 21:00 04/04/20 20:25 Quetiapine Fumarate (SEROquel) 75 mg QHS PO 04/03/20 21:00 04/04/20 20:25 Tamsulosin HCl (Flomax) 0.8 mg DAILY PO 04/04/20 09:00 04/04/20 09:32 Trazodone HCl (Desyrel) 50 mg QHS PO 04/03/20 21:00 04/04/20 20:25 Atorvastatin Calcium (Lipitor) 40 mg QHS PO 04/03/20 21:00 04/04/20 20:24 Artificial Tears (Refresh Classic) 1 drop PRN Q15MIN PRN OD DRY EYE 04/03/20 15:45 Donepezil HCl (Aricept) 5 mg HS PO 04/03/20 21:00 04/04/20 20:25 Fluticasone Propionate (Flonase) 1 spray DAILY NS 04/04/20 09:00 04/04/20 09:31 Fluticasone/ Vilanterol (Breo Ellipta 200-25 Mcg) 1 puff DAILY INH 04/04/20 09:00 04/04/20 09:31 Loperamide HCl (Imodium) 2 mg PRN Q15MIN PRN PO DIARRHEA 04/03/20 15:45 Al Hydroxide/Mg Hydroxide (Mylanta Plus Xs) 30 ml PRN Q2HR PRN PO DYSPEPSIA 04/03/20 15:45 Melatonin (Melatonin) 3 mg QHS PO 04/03/20 21:00 04/04/20 18:46 DC 04/03/20 20:23 Thiamine HCl (Vitamin B-1) 100 mg DAILY PO 04/04/20 09:00 04/04/20 09:31 Sodium Chloride (Saline Mist Nasal) 2 clifford PRN BID PRN NS NASAL CONGESTION 04/03/20 15:30 Acetaminophen (Tylenol) 650 mg PRN Q6HRS PRN PO MILD PAIN / TEMP > 100.3'F 04/03/20 16:30 04/05/20 06:38 Multi-Ingredient Ointment (Analgesic [place]) 1 clifford PRN QID PRN TP MUSCLE PAIN 04/03/20 16:30 Al Hydroxide/Mg Hydroxide (Mylanta Plus Xs) 15 ml PRN AFTMEALHC PRN PO DYSPEPSIA 04/03/20 16:30 04/04/20 08:38 DC Magnesium Hydroxide (Milk Of Magnesia) 2,400 mg PRN QHS PRN PO CONSTIPATION 04/03/20 16:30 Vitamin D (Vitamin D3) 50,000 unit WEEKLY PO 04/05/20 09:00 Mirtazapine (Remeron) 7.5 mg QHS PO 04/04/20 21:00 04/04/20 20:26 Quetiapine Fumarate (SEROquel) 12.5 mg 0900,1300,1700 PO 04/05/20 09:00 Olanzapine (ZyPREXA ZYDIS) 2.5 mg PRN Q2HRS PRN PO PSYCHOSIS 04/04/20 18:45 04/05/20 06:38 Potassium Chloride (Klor-Con) 40 meq 1X ONCE PO 04/04/20 21:30 04/04/20 21:32 DC 04/04/20 21:30 Potassium Chloride (Klor-Con) 20 meq DAILYWBKFT PO 04/05/20 08:00 Current Medications Medications (Trade) Dose Ordered Sig/Zohaib Route PRN Reason Start Time Stop Time Status Last Admin Dose Admin Amlodipine Besylate (Norvasc) 10 mg DAILY PO 04/04/20 09:00 04/04/20 09:32 Aspirin (Aspirin Chewable) 81 mg DAILY PO 04/04/20 09:00 04/04/20 09:31 Atenolol (Tenormin) 25 mg DAILY PO 04/04/20 09:00 04/04/20 09:33 Losartan Potassium (Cozaar) 50 mg DAILY PO 04/04/20 09:00 04/04/20 09:31 Tamsulosin HCl (Flomax) 0.8 mg DAILY PO 04/04/20 09:00 04/04/20 09:32 Fluticasone Propionate (Flonase) 1 spray DAILY NS 04/04/20 09:00 04/04/20 09:31 Fluticasone/ Vilanterol (Breo Ellipta 200-25 Mcg) 1 puff DAILY INH 04/04/20 09:00 04/04/20 09:31 Thiamine HCl (Vitamin B-1) 100 mg DAILY PO 04/04/20 09:00 04/04/20 09:31 Mirtazapine (Remeron) 7.5 mg QHS PO 04/04/20 21:00 04/04/20 20:26 Olanzapine (ZyPREXA ZYDIS) 2.5 mg PRN Q2HRS PRN PO PSYCHOSIS 04/04/20 18:45 04/05/20 06:38 Potassium Chloride (Klor-Con) 40 meq 1X ONCE PO 04/04/20 21:30 04/04/20 21:32 DC 04/04/20 21:30 I have reviewed the current psychotropics carefully including drug interactions. Risk benefit ratio favors no change other than as noted in my dictated progress note. Diagnosis: Problems: (1) Impulse control disorder, unspecified (2) Anxiety disorder, unspecified (3) Dementia, vascular, with depression (4) Dementia, vascular, with delusions (5) Dementia in Alzheimer's disease with depression (6) Dementia in Alzheimer's disease with delusions (7) Dementia of the Alzheimer's type with early onset with behavioral disturbance (8) Major neurocognitive disorder YOLANDA BURGESS MD Apr 05, 2020 08:36
--- NOTE | 2020-04-05 09:36 | NUR ---
WEEKLY ACTIVITY THERAPY NOTE Date of Admission: 04/03 Date of AT Assessment: TBD Precipitating behaviors that initiated intake and admission: yelling out, restless, transfers himself (states he can't sit still), screaming at others, anxious, agitated, restless, put his hands over the drivers eyes in the car, impulsive, insomnia Goal aimed: TBD Initial Goal: TBD Weekly progress towards goal: NA Group participation level: 1 min, 1 mod Weekly highlights: fully engaged half the time of balloon bop yesterday and answered a get to know you questions Behaviors observed: yelling out, up/down of wheelchair, difficult to redirect Plan: meet/ assess Pt Beneficial adaptations:
--- NOTE | 2020-04-05 12:00 | TX PLAN ---
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 Change Sleep, Angry, Confusi on/Disoriented, Poor impulse control Problem in Patient's Words: When asked, Clrak stated a "Mercury Franck" brought him here. He did not recall behaviors that led up to hospitalization but did acknowledge having trouble with his memory. Additional Admission Comments: Per intake record, yelling out, restless, transfers himself (after saying he can't), screaming at others, anxious, agitated, put his hands over the transporter driver's eyes in the car, impulsive, insomnia. Problems Active Problems: restless agitated yelling out verbally aggressive threatens others refusing medications Inactive Problems: intakes of meals are adequate sleep is adequate Pt Strengths/Limitations Ability for [place]: Poor Cognitive Functioning/Ability: Poor Communication Skills/Ability: Fair Financial Resources: Fair Insight/Judgement: Poor Intellectual Ability: Fair Physical Health: Fair Social Skills: Fair Stability in Family: Fair Verbal Skills: Fair Discharge Criteria Discharge Criteria: Adequate arrangements @DC, Improved behavior, Improved mood/thought Preliminary Discharge Plan Preliminary DC Plan: Memory Care Other Arrangements: [facility] or [facility] Special Precautions Special Precautions: Agitation/Assault Fall Risk: High Initial D/C Plan Memory care placement Identified Discharge Needs: Clark will return to [facility] or possibly [facility] if they are able to met Bill's needs. Currently Utilized Resources Currently Utilized Resources/P: PCP Neurologist Referrals Community Resources: Psychiatrist, out patient, if available Identified Problems/Hx/Goals Objectives/Short-Term Goals Short Term Goals: Control abnormal behavior, Dec. Aggression, Dec. Outbursts, Medication Stabilization, Monitor Med Effects Short Term Goals in Patient's: Per POA, mood and behavior stabilization. Interventions/Frequency Staff Interventions/Frequency&: Nursing to provide routine safety checks, medication administration, and adl assistance. Psychiatrist services three times weekly. SW visits twice weekly. Recreational and SW group activities as Clark is willing. 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 Social: Clark has enjoyed [employer] dancing and [employer] music. Education: Clark graduated high school in [place], [place]. Community Follow-up PCP Neurology Psychiatry, if available. Community Provider/Family Inpu: gasper Lobato/CHEN, participated in team meeting via phone on 04/05/20. Treatment Plan Explained Patient/Watch Assembly Inspector had this treatment plan explained to him/her as indicated by the signature below and has been given the opportunity to ask questions and make suggestions: Date: Patient/Watch Assembly Inspector Signature: DEMETRIUS DENNY Apr 05, 2020 12:00
--- NOTE | 2020-04-05 12:20 | NUR ---
Pt began the morning very restless and agitated, frequently yelling from his bed starting at approx 0650. He was not initially complaint with medications; he refused to take medications "Until I leave and renea you all!" Attempts at education and explanation of importance of taking medications unsuccessful. After eating breakfast this nurse attempted to administer morning medications again, stating they were "pills to stop gas." At that point pt was complaint. He frequently exits his room via w/c to yell about various things. When toileting he will yell at staff to not leave the bathroom at all. He has been absent of physical aggression this shift, but is overall very loud and demanding. He is alert to self only; he believes he is currently in [place]. He has edema in BLE, and c/o generalized pain "all over." He was too loud and angry to go into further detail about his pain (rating intensity, specific locations etc). Will pass on to the next shift.
--- NOTE | 2020-04-05 13:46 | NUR ---
Received phone call from nurse Sonal at [facility], who was inquiring on pt's current status and progress. Topics discussed: current medications, current behaviors, medication compliance, hours of sleep. She verbalized understanding and phone call ended.
[2020-04-05 15:20] VITALS: BP 137/70
[2020-04-05] MEDS: MIRTAZAPINE 7.5 MG TABLET. PO SCH (19:41)
[2020-04-05] MEDS: ATORVASTATIN CALCIUM 20 MG TABLET PO SCH (19:42)
[2020-04-05] MEDS: traZODone 50 MG TABLET. PO SCH (19:42)
[2020-04-05] MEDS: DONEPEZIL HCL 5 MG TABLET. PO SCH (19:42)
--- NOTE | 2020-04-05 21:04 | PDOC ---
Exam Note: Khanh Note: Please also refer to the separate dictated note~for this date of service dictated separately.~Patient seen individually. Discussed the patient with Nursing staff reviewed the chart.~Reviewed interim history and current functioning. Reviewed vital signs,~Labs/ Radiology~and current medications noted below. Continue current treatment with the changes noted in the dictated addendum note Assessment: Vital Signs/I&O: Vital Signs Date Time Temp Pulse Resp B/P (MAP) Pulse Ox O2 Delivery O2 Flow Rate FiO2 04/05/20 15:20 98.3 64 20 137/70 (92) 98 Room Air I & O 04/04/20 04/04/20 04/05/20 15:00 23:00 07:00 Intake Total 720 ml 600 ml Balance 720 ml 600 ml Current Medications: Meds: Current Medications Medications (Trade) Dose Ordered Sig/Zohaib Route PRN Reason Start Time Stop Time Status Last Admin Dose Admin Amlodipine Besylate (Norvasc) 10 mg DAILY PO 04/04/20 09:00 04/05/20 08:33 Aspirin (Aspirin Chewable) 81 mg DAILY PO 04/04/20 09:00 04/05/20 08:33 Atenolol (Tenormin) 25 mg DAILY PO 04/04/20 09:00 04/05/20 08:34 Haloperidol (Haldol) 2.5 mg PRN Q8HRS PRN PO delusions 04/03/20 15:45 04/04/20 18:46 DC 04/04/20 10:16 Losartan Potassium (Cozaar) 50 mg DAILY PO 04/04/20 09:00 04/05/20 08:34 Memantine (Namenda) 10 mg BID PO 04/03/20 21:00 04/05/20 19:42 Quetiapine Fumarate (SEROquel) 75 mg QHS PO 04/03/20 21:00 04/05/20 19:42 Tamsulosin HCl (Flomax) 0.8 mg DAILY PO 04/04/20 09:00 04/05/20 08:34 Trazodone HCl (Desyrel) 50 mg QHS PO 04/03/20 21:00 04/05/20 19:42 Atorvastatin Calcium (Lipitor) 40 mg QHS PO 04/03/20 21:00 04/05/20 19:42 Artificial Tears (Refresh Classic) 1 drop PRN Q15MIN PRN OD DRY EYE 04/03/20 15:45 Donepezil HCl (Aricept) 5 mg HS PO 04/03/20 21:00 04/05/20 19:42 Fluticasone Propionate (Flonase) 1 spray DAILY NS 04/04/20 09:00 04/05/20 08:36 Fluticasone/ Vilanterol (Breo Ellipta 200-25 Mcg) 1 puff DAILY INH 04/04/20 09:00 04/05/20 08:36 Loperamide HCl (Imodium) 2 mg PRN Q15MIN PRN PO DIARRHEA 04/03/20 15:45 Al Hydroxide/Mg Hydroxide (Mylanta Plus Xs) 30 ml PRN Q2HR PRN PO DYSPEPSIA 04/03/20 15:45 Melatonin (Melatonin) 3 mg QHS PO 04/03/20 21:00 04/04/20 18:46 DC 04/03/20 20:23 Thiamine HCl (Vitamin B-1) 100 mg DAILY PO 04/04/20 09:00 04/05/20 08:34 Sodium Chloride (Saline Mist Nasal) 2 clifford PRN BID PRN NS NASAL CONGESTION 04/03/20 15:30 Acetaminophen (Tylenol) 650 mg PRN Q6HRS PRN PO MILD PAIN / TEMP > 100.3'F 04/03/20 16:30 04/05/20 06:38 Multi-Ingredient Ointment (Analgesic [place]) 1 clifford PRN QID PRN TP MUSCLE PAIN 04/03/20 16:30 Al Hydroxide/Mg Hydroxide (Mylanta Plus Xs) 15 ml PRN AFTMEALHC PRN PO DYSPEPSIA 04/03/20 16:30 04/04/20 08:38 DC Magnesium Hydroxide (Milk Of Magnesia) 2,400 mg PRN QHS PRN PO CONSTIPATION 04/03/20 16:30 Vitamin D (Vitamin D3) 50,000 unit WEEKLY PO 04/05/20 09:00 04/05/20 08:36 Mirtazapine (Remeron) 7.5 mg QHS PO 04/04/20 21:00 04/05/20 19:41 Quetiapine Fumarate (SEROquel) 12.5 mg 0900,1300,1700 PO 04/05/20 09:00 04/05/20 16:54 Olanzapine (ZyPREXA ZYDIS) 2.5 mg PRN Q2HRS PRN PO PSYCHOSIS 04/04/20 18:45 04/05/20 06:38 Potassium Chloride (Klor-Con) 40 meq 1X ONCE PO 04/04/20 21:30 04/04/20 21:32 DC 04/04/20 21:30 Potassium Chloride (Klor-Con) 20 meq DAILYWBKFT PO 04/05/20 08:00 04/05/20 08:36 Current Medications Medications (Trade) Dose Ordered Sig/Zohaib Route PRN Reason Start Time Stop Time Status Last Admin Dose Admin Vitamin D (Vitamin D3) 50,000 unit WEEKLY PO 04/05/20 09:00 04/05/20 08:36 Quetiapine Fumarate (SEROquel) 12.5 mg 0900,1300,1700 PO 04/05/20 09:00 04/05/20 16:54 Potassium Chloride (Klor-Con) 40 meq 1X ONCE PO 04/04/20 21:30 04/04/20 21:32 DC 04/04/20 21:30 Potassium Chloride (Klor-Con) 20 meq DAILYWBKFT PO 04/05/20 08:00 04/05/20 08:36 I have reviewed the current psychotropics carefully including drug interactions. Risk benefit ratio favors no change other than as noted in my dictated progress note. Diagnosis: Problems: (1) Impulse control disorder, unspecified (2) Anxiety disorder, unspecified (3) Dementia, vascular, with depression (4) Dementia, vascular, with delusions (5) Dementia in Alzheimer's disease with depression (6) Dementia in Alzheimer's disease with delusions (7) Dementia of the Alzheimer's type with early onset with behavioral disturbance (8) Major neurocognitive disorder YOLANDA BURGESS MD Apr 05, 2020 21:04
--- NOTE | 2020-04-05 21:23 | NUR ---
Pt sitting up in w/c in the day room at shift change. Pt calm, disorganized, and confused. Pt cooperative with assessment and cares and compliant with medications administered whole. No agitation or aggression noted thus far this shift.
[2020-04-06 05:52] VITALS: BP 150/80
[2020-04-06] MEDS: POTASSIUM CHLORIDE 20 MEQ TABLET.ER. PO SCH (07:59)
[2020-04-06] MEDS: amLODIPine BESYLATE 10 MG TABLET PO SCH (08:00)
[2020-04-06] MEDS: MEMANTINE 10 MG TABLET. PO SCH ×2 (08:00→19:37)
[2020-04-06] MEDS: LOSARTAN 50 MG TABLET. PO SCH (08:01)
[2020-04-06] MEDS: ASPIRIN CHEWABLE 81 MG TABLET. PO SCH (08:01)
[2020-04-06] MEDS: TAMSULOSIN 0.4 MG CAP.ER.24H. PO SCH (08:01)
[2020-04-06] MEDS: QUEtiapine 25 MG TABLET. PO SCH ×4 (08:02→19:37)
[2020-04-06] MEDS: ATENOLOL 25 MG TABLET PO SCH (08:02)
[2020-04-06] MEDS: THIAMINE 100 MG TABLET. PO SCH (08:02)
[2020-04-06] MEDS: FLUTICASONE 50MCG/NASAL SPRAY 16GM BOTTLE. NS SCH (08:02)
[2020-04-06] MEDS: FLUTICASONE/VILANTEROL 200/25 INHALER. INH SCH (08:03)
--- NOTE | 2020-04-06 09:46 | NUR ---
Nursing Note Pt pleasant this am, cooperative with meds and assessments. Up in wheelchair wanders around social smiles on approach.
--- NOTE | 2020-04-06 12:45 | NUR ---
ACTIVITY THERAPY ASSESSMENT Completed based on observations, notes, and interview. Pt. was in the dining room and looked like he was about to leave but was agreeable to speak with ROBOTICS TECHNOLOGIST. He said he felt lost and was confused as he talked about how he was told to come here but thought he needed to go back down the [place]. He didn't know where he was, figured he was in [place] but said the reason he was at this facility was because he was "crazy" but didn't elaborate. Pt. goes by "Bill" and said he was from [place], [place]. He had trouble recalling facts about his family and leisure interests. When asked specifically if he likes TV he said he watches a lot of TV and when asked about reading, he said no he did not like to read. Pt's Psychosocial states Pt. enjoys hunting, fishing, [employer] music, [employer] dancing, gardening and football. He struggled to answer if he has a lot of stress/ anxiety and what he does to help relax. Pt. was calm the entire interview until he became distracted by a peer who was disruptive across the room. Pt. became impatient, irritable and complained of cold feet and wanted to go back to his room. ROBOTICS TECHNOLOGIST calmly assured him that would be possible and LEATHER DRIER came to help him to his room. Pt. has moments like this, where he is hard to redirect, impulsive, resistive, verbally disruptive/ yelling out. Other times, he is pleasant and able to engage in group activities. Initial goal aimed to increase relaxation and engagement: Pt. will participate in at least five Activity Therapy groups per week. Addendum: 04/12/20 at 1210 by YVES JUAREZ ACT Repeat goal 04/12/20
[2020-04-06 15:35] VITALS: BP_SYST 118; BP_SYST 150; BP_DIAS 58; BP_DIAS 83
[2020-04-06] MEDS: DONEPEZIL HCL 5 MG TABLET. PO SCH (19:37)
[2020-04-06] MEDS: ATORVASTATIN CALCIUM 20 MG TABLET PO SCH (19:38)
[2020-04-06] MEDS: traZODone 50 MG TABLET. PO SCH (19:38)
[2020-04-06] MEDS: MIRTAZAPINE 7.5 MG TABLET. PO SCH (19:38)
--- NOTE | 2020-04-06 20:50 | PDOC ---
Exam Note: Khanh Note: Please also refer to the separate dictated note~for this date of service dictated separately.~Patient seen individually. Discussed the patient with Nursing staff reviewed the chart.~Reviewed interim history and current functioning. Reviewed vital signs,~Labs/ Radiology~and current medications noted below. Continue current treatment with the changes noted in the dictated addendum note Assessment: Vital Signs/I&O: Vital Signs Date Time Temp Pulse Resp B/P (MAP) Pulse Ox O2 Delivery O2 Flow Rate FiO2 04/06/20 15:35 97.4 55 17 150/83 (105) 93 Room Air I & O 04/05/20 04/05/20 04/06/20 15:00 23:00 07:00 Intake Total 560 ml 360 ml Balance 560 ml 360 ml Current Medications: Meds: Current Medications Medications (Trade) Dose Ordered Sig/Zohaib Route PRN Reason Start Time Stop Time Status Last Admin Dose Admin Amlodipine Besylate (Norvasc) 10 mg DAILY PO 04/04/20 09:00 04/06/20 08:00 Aspirin (Aspirin Chewable) 81 mg DAILY PO 04/04/20 09:00 04/06/20 08:01 Atenolol (Tenormin) 25 mg DAILY PO 04/04/20 09:00 04/06/20 08:02 Haloperidol (Haldol) 2.5 mg PRN Q8HRS PRN PO delusions 04/03/20 15:45 04/04/20 18:46 DC 04/04/20 10:16 Losartan Potassium (Cozaar) 50 mg DAILY PO 04/04/20 09:00 04/06/20 08:01 Memantine (Namenda) 10 mg BID PO 04/03/20 21:00 04/06/20 19:37 Quetiapine Fumarate (SEROquel) 75 mg QHS PO 04/03/20 21:00 04/06/20 19:37 Tamsulosin HCl (Flomax) 0.8 mg DAILY PO 04/04/20 09:00 04/06/20 08:01 Trazodone HCl (Desyrel) 50 mg QHS PO 04/03/20 21:00 04/06/20 19:38 Atorvastatin Calcium (Lipitor) 40 mg QHS PO 04/03/20 21:00 04/06/20 19:38 Artificial Tears (Refresh Classic) 1 drop PRN Q15MIN PRN OD DRY EYE 04/03/20 15:45 Donepezil HCl (Aricept) 5 mg HS PO 04/03/20 21:00 04/06/20 19:37 Fluticasone Propionate (Flonase) 1 spray DAILY NS 04/04/20 09:00 04/06/20 08:02 Fluticasone/ Vilanterol (Breo Ellipta 200-25 Mcg) 1 puff DAILY INH 04/04/20 09:00 04/06/20 08:03 Loperamide HCl (Imodium) 2 mg PRN Q15MIN PRN PO DIARRHEA 04/03/20 15:45 Al Hydroxide/Mg Hydroxide (Mylanta Plus Xs) 30 ml PRN Q2HR PRN PO DYSPEPSIA 04/03/20 15:45 Melatonin (Melatonin) 3 mg QHS PO 04/03/20 21:00 04/04/20 18:46 DC 04/03/20 20:23 Thiamine HCl (Vitamin B-1) 100 mg DAILY PO 04/04/20 09:00 04/06/20 08:02 Sodium Chloride (Saline Mist Nasal) 2 clifford PRN BID PRN NS NASAL CONGESTION 04/03/20 15:30 Acetaminophen (Tylenol) 650 mg PRN Q6HRS PRN PO MILD PAIN / TEMP > 100.3'F 04/03/20 16:30 04/05/20 06:38 Multi-Ingredient Ointment (Analgesic [place]) 1 clifford PRN QID PRN TP MUSCLE PAIN 04/03/20 16:30 Al Hydroxide/Mg Hydroxide (Mylanta Plus Xs) 15 ml PRN AFTMEALHC PRN PO DYSPEPSIA 04/03/20 16:30 04/04/20 08:38 DC Magnesium Hydroxide (Milk Of Magnesia) 2,400 mg PRN QHS PRN PO CONSTIPATION 04/03/20 16:30 Vitamin D (Vitamin D3) 50,000 unit WEEKLY PO 04/05/20 09:00 04/05/20 08:36 Mirtazapine (Remeron) 7.5 mg QHS PO 04/04/20 21:00 04/06/20 19:38 Quetiapine Fumarate (SEROquel) 12.5 mg 0900,1300,1700 PO 04/05/20 09:00 04/06/20 16:51 Olanzapine (ZyPREXA ZYDIS) 2.5 mg PRN Q2HRS PRN PO PSYCHOSIS 04/04/20 18:45 04/05/20 06:38 Potassium Chloride (Klor-Con) 40 meq 1X ONCE PO 04/04/20 21:30 04/04/20 21:32 DC 04/04/20 21:30 Potassium Chloride (Klor-Con) 20 meq DAILYWBKFT PO 04/05/20 08:00 04/06/20 07:59 I have reviewed the current psychotropics carefully including drug interactions. Risk benefit ratio favors no change other than as noted in my dictated progress note. Diagnosis: Problems: (1) Impulse control disorder, unspecified (2) Anxiety disorder, unspecified (3) Dementia, vascular, with depression (4) Dementia, vascular, with delusions (5) Dementia in Alzheimer's disease with depression (6) Dementia in Alzheimer's disease with delusions (7) Dementia of the Alzheimer's type with early onset with behavioral disturbance (8) Major neurocognitive disorder YOLANDA BURGESS MD Apr 06, 2020 20:50
--- NOTE | 2020-04-06 21:58 | NUR ---
Pt up in w/c in the day room at shift change. Pt calm, impulsive and restless at times. Pt had one episode of yelling out, agitation this evening but I was able to re-direct him easily by speaking with him 1:1. Pt has attempted to self transfer himself this evening as well but responded well to staff assistance. Pt cooperative with assessment and compliant with medications administered whole.
[2020-04-07] MEDS: ACETAMINOPHEN 325 MG TABLET PO PRN (01:56)
--- NOTE | 2020-04-07 03:06 | NUR ---
Pt c/o LBP, PRN Tylenol and PRN analgesic balm administered @0156. Pt continued to be restless and impulsive, jumping up out of his bed, out of the chair, and out of his w/c. Staff attempted several different positions and techniques in order to try to make him more comfortable with little success. Pt continued to yell out "help me, help me, help me". Whenever staff would try to help or reposition him, pt would yell out. Pt was then moved to the Quiet Room in the [facility] as to not disturb the other pt's. PRN Cherelle administered @4804.
[2020-04-07 05:33] VITALS: BP 139/70
[2020-04-07] MEDS: TAMSULOSIN 0.4 MG CAP.ER.24H. PO SCH (08:11)
[2020-04-07] MEDS: THIAMINE 100 MG TABLET. PO SCH (08:11)
[2020-04-07] MEDS: MEMANTINE 10 MG TABLET. PO SCH ×2 (08:11→17:06)
[2020-04-07] MEDS: FLUTICASONE 50MCG/NASAL SPRAY 16GM BOTTLE. NS SCH (08:11)
[2020-04-07] MEDS: ASPIRIN CHEWABLE 81 MG TABLET. PO SCH (08:11)
[2020-04-07] MEDS: amLODIPine BESYLATE 10 MG TABLET PO SCH (08:11)
[2020-04-07] MEDS: POTASSIUM CHLORIDE 20 MEQ TABLET.ER. PO SCH (08:12)
[2020-04-07] MEDS: LOSARTAN 50 MG TABLET. PO SCH (08:12)
[2020-04-07] MEDS: ATENOLOL 25 MG TABLET PO SCH (08:12)
[2020-04-07] MEDS: QUEtiapine 25 MG TABLET. PO SCH ×4 (08:12→17:06)
[2020-04-07] MEDS: FLUTICASONE/VILANTEROL 200/25 INHALER. INH SCH (08:13)
[2020-04-07 16:22] VITALS: BP 139/83
[2020-04-07] MEDS: traZODone 50 MG TABLET. PO SCH (17:06)
[2020-04-07] MEDS: ATORVASTATIN CALCIUM 20 MG TABLET PO SCH (17:06)
[2020-04-07] MEDS: DONEPEZIL HCL 5 MG TABLET. PO SCH (17:06)
[2020-04-07] MEDS: MIRTAZAPINE 7.5 MG TABLET. PO SCH (17:06)
--- NOTE | 2020-04-07 19:31 | NUR ---
Pt up for meals in wc. Has been pleasantly confused. Compliant with meds and cares.
[2020-04-07] MEDS: oxyCODONE IR 5 MG TABLET PO PRN (20:26)
--- NOTE | 2020-04-07 21:58 | PDOC ---
Exam Note: Khanh Note: Please also refer to the separate dictated note~for this date of service dictated separately.~Patient seen individually. Discussed the patient with Nursing staff reviewed the chart.~Reviewed interim history and current functioning. Reviewed vital signs,~Labs/ Radiology~and current medications noted below. Continue current treatment with the changes noted in the dictated addendum note Assessment: Vital Signs/I&O: Vital Signs Date Time Temp Pulse Resp B/P (MAP) Pulse Ox O2 Delivery O2 Flow Rate FiO2 04/07/20 16:22 98.2 56 16 139/83 (101) 97 Room Air I & O 04/06/20 04/06/20 04/07/20 14:59 22:59 06:59 Intake Total 600 ml 480 ml Balance 600 ml 480 ml Current Medications: Meds: Current Medications Medications (Trade) Dose Ordered Sig/Zohaib Route PRN Reason Start Time Stop Time Status Last Admin Dose Admin Oxycodone HCl (Roxicodone) 5 mg PRN Q6HRS PRN PO PAIN 04/07/20 16:30 04/07/20 20:26 I have reviewed the current psychotropics carefully including drug interactions. Risk benefit ratio favors no change other than as noted in my dictated progress note. Diagnosis: Problems: (1) Impulse control disorder, unspecified (2) Anxiety disorder, unspecified (3) Dementia, vascular, with depression (4) Dementia, vascular, with delusions (5) Dementia in Alzheimer's disease with depression (6) Dementia in Alzheimer's disease with delusions (7) Dementia of the Alzheimer's type with early onset with behavioral disturbance (8) Major neurocognitive disorder YOLANDA BURGESS MD Apr 07, 2020 21:58
--- NOTE | 2020-04-07 23:03 | NUR ---
Pt sitting up in w/c at shift change. Pt calm, confused, and disorganized. Pt restless and impulsive at times but less so than previously noted. Pt cooperative with assessment and compliant with medications administered whole. PRN Oxycodone administered for c/o LBP. No agitation, aggression, or yelling out noted thus far this shift.
[2020-04-08 05:50] VITALS: BP 150/76
[2020-04-08] MEDS: FLUTICASONE 50MCG/NASAL SPRAY 16GM BOTTLE. NS SCH (08:09)
[2020-04-08] MEDS: FLUTICASONE/VILANTEROL 200/25 INHALER. INH SCH (08:09)
[2020-04-08] MEDS: QUEtiapine 25 MG TABLET. PO SCH ×4 (08:10→19:25)
[2020-04-08] MEDS: amLODIPine BESYLATE 10 MG TABLET PO SCH (08:10)
[2020-04-08] MEDS: THIAMINE 100 MG TABLET. PO SCH (08:10)
[2020-04-08] MEDS: TAMSULOSIN 0.4 MG CAP.ER.24H. PO SCH (08:10)
[2020-04-08] MEDS: MEMANTINE 10 MG TABLET. PO SCH ×2 (08:11→19:25)
[2020-04-08] MEDS: ASPIRIN CHEWABLE 81 MG TABLET. PO SCH (08:11)
[2020-04-08] MEDS: LOSARTAN 50 MG TABLET. PO SCH (08:11)
[2020-04-08] MEDS: POTASSIUM CHLORIDE 20 MEQ TABLET.ER. PO SCH (08:11)
[2020-04-08] MEDS: ATENOLOL 25 MG TABLET PO SCH (08:11)
--- NOTE | 2020-04-08 09:18 | NUR ---
Patient easy to arouse. patient complaint with medication and assessment. Patient assisted to restroom and down to the dayroom after breakfast.
[2020-04-08 15:49] VITALS: BP 117/63
[2020-04-08] MEDS: ATORVASTATIN CALCIUM 20 MG TABLET PO SCH (19:25)
[2020-04-08] MEDS: traZODone 50 MG TABLET. PO SCH (19:25)
[2020-04-08] MEDS: MIRTAZAPINE 7.5 MG TABLET. PO SCH (19:25)
[2020-04-08] MEDS: DONEPEZIL HCL 5 MG TABLET. PO SCH (19:25)
[2020-04-08] MEDS: oxyCODONE IR 5 MG TABLET PO PRN (19:27)
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
--- NOTE | 2020-04-08 21:09 | NUR ---
Pt sitting up in his w/c at shift change. Pt irritable at times, yelling out, and demanding. Pt cooperative with assessment and compliant with medications administered whole. PRN Oxycodone administered for c/o LBP and pt reports of "hurts all over".
--- NOTE | 2020-04-08 21:10 | PDOC ---
Exam Note: Khanh Note: This note is a late entry for 04/06/2020 covers elements not covered in my initial note. Subjective: The patient was seen face to face in the evening of 04/06/2020 with Laura HINSON, discussed and reviewed the chart. He slept 8-1/4 hours previous night. The patient has been compliant with medications. He is confused. He has been quieter, alert and oriented to himself, less anxious, restless, less trying to jump out of the wheelchair. Review of Systems: Ambulation impaired in wheelchair. No CV, , pulmonary, eye, ENT system symptoms on review. Mental Status Exam: The patient is oriented to himself. Insight and judgement, recent and remote memory, attention and concentration, fund of knowledge is poor consistent with his diagnosis. I met with him in his room in the evening. Laboratory Data: Reviewed. Impression: Major neurocognitive disorder Alzheimer vascular with delusion, depression, behavioral disturbance. Anxiety disorder unspecified. Impulse control disorder unspecified. Plan: Continue current psychotropics. He seems to be doing better, less a nxious, restless. Adjust further as clinically indicated. Assessment: Vital Signs/I&O: Vital Signs Date Time Temp Pulse Resp B/P (MAP) Pulse Ox O2 Delivery O2 Flow Rate FiO2 04/08/20 20:27 98 04/08/20 15:49 98.2 64 20 117/63 (81) Room Air I & O 04/07/20 04/07/20 04/08/20 15:00 23:00 07:00 Intake Total 720 ml 480 ml Balance 720 ml 480 ml Current Medications: Meds: Current Medications Medications (Trade) Dose Ordered Sig/Zohaib Route PRN Reason Start Time Stop Time Status Last Admin Dose Admin Amlodipine Besylate (Norvasc) 10 mg DAILY PO 04/04/20 09:00 04/08/20 08:10 Aspirin (Aspirin Chewable) 81 mg DAILY PO 04/04/20 09:00 04/08/20 08:11 Atenolol (Tenormin) 25 mg DAILY PO 04/04/20 09:00 04/08/20 08:11 Haloperidol (Haldol) 2.5 mg PRN Q8HRS PRN PO delusions 04/03/20 15:45 04/04/20 18:46 DC 04/04/20 10:16 Losartan Potassium (Cozaar) 50 mg DAILY PO 04/04/20 09:00 04/08/20 08:11 Memantine (Namenda) 10 mg BID PO 04/03/20 21:00 04/08/20 19:25 Quetiapine Fumarate (SEROquel) 75 mg QHS PO 04/03/20 21:00 04/08/20 19:25 Tamsulosin HCl (Flomax) 0.8 mg DAILY PO 04/04/20 09:00 04/08/20 08:10 Trazodone HCl (Desyrel) 50 mg QHS PO 04/03/20 21:00 04/08/20 19:25 Atorvastatin Calcium (Lipitor) 40 mg QHS PO 04/03/20 21:00 04/08/20 19:25 Artificial Tears (Refresh Classic) 1 drop PRN Q15MIN PRN OD DRY EYE 04/03/20 15:45 Donepezil HCl (Aricept) 5 mg HS PO 04/03/20 21:00 04/08/20 19:25 Fluticasone Propionate (Flonase) 1 spray DAILY NS 04/04/20 09:00 04/08/20 08:09 Fluticasone/ Vilanterol (Breo Ellipta 200-25 Mcg) 1 puff DAILY INH 04/04/20 09:00 04/08/20 08:09 Loperamide HCl (Imodium) 2 mg PRN Q15MIN PRN PO DIARRHEA 04/03/20 15:45 Al Hydroxide/Mg Hydroxide (Mylanta Plus Xs) 30 ml PRN Q2HR PRN PO DYSPEPSIA 04/03/20 15:45 Melatonin (Melatonin) 3 mg QHS PO 04/03/20 21:00 04/04/20 18:46 DC 04/03/20 20:23 Thiamine HCl (Vitamin B-1) 100 mg DAILY PO 04/04/20 09:00 04/08/20 08:10 Sodium Chloride (Saline Mist Nasal) 2 clifford PRN BID PRN NS NASAL CONGESTION 04/03/20 15:30 Acetaminophen (Tylenol) 650 mg PRN Q6HRS PRN PO MILD PAIN / TEMP > 100.3'F 04/03/20 16:30 04/07/20 01:56 Multi-Ingredient Ointment (Analgesic [place]) 1 clifford PRN QID PRN TP MUSCLE PAIN 04/03/20 16:30 04/07/20 01:56 Al Hydroxide/Mg Hydroxide (Mylanta Plus Xs) 15 ml PRN AFTMEALHC PRN PO DYSPEPSIA 04/03/20 16:30 04/04/20 08:38 DC Magnesium Hydroxide (Milk Of Magnesia) 2,400 mg PRN QHS PRN PO CONSTIPATION 04/03/20 16:30 Vitamin D (Vitamin D3) 50,000 unit WEEKLY PO 04/05/20 09:00 04/05/20 08:36 Mirtazapine (Remeron) 7.5 mg QHS PO 04/04/20 21:00 04/08/20 19:25 Quetiapine Fumarate (SEROquel) 12.5 mg 0900,1300,1700 PO 04/05/20 09:00 04/07/20 18:37 DC 04/07/20 17:05 Olanzapine (ZyPREXA ZYDIS) 2.5 mg PRN Q2HRS PRN PO PSYCHOSIS 04/04/20 18:45 04/07/20 02:57 Potassium Chloride (Klor-Con) 40 meq 1X ONCE PO 04/04/20 21:30 04/04/20 21:32 DC 04/04/20 21:30 Potassium Chloride (Klor-Con) 20 meq DAILYWBKFT PO 04/05/20 08:00 04/08/20 08:11 Oxycodone HCl (Roxicodone) 5 mg PRN Q6HRS PRN PO PAIN 04/07/20 16:30 04/08/20 19:27 Quetiapine Fumarate (SEROquel) 12.5 mg 0900,1700 PO 04/08/20 09:00 04/08/20 17:21 Quetiapine Fumarate (SEROquel) 25 mg DAILYWLUN PO 04/08/20 12:00 04/08/20 12:03 Current Medications Medications (Trade) Dose Ordered Sig/Zohaib Route PRN Reason Start Time Stop Time Status Last Admin Dose Admin Quetiapine Fumarate (SEROquel) 12.5 mg 0900,1700 PO 04/08/20 09:00 04/08/20 17:21 Quetiapine Fumarate (SEROquel) 25 mg DAILYWLUN PO 04/08/20 12:00 04/08/20 12:03 I have reviewed the current psychotropics carefully including drug interactions. Risk benefit ratio favors no change other than as noted in my dictated progress note. Diagnosis: Problems: (1) Impulse control disorder, unspecified (2) Anxiety disorder, unspecified (3) Dementia, vascular, with depression (4) Dementia, vascular, with delusions (5) Dementia in Alzheimer's disease with depression (6) Dementia in Alzheimer's disease with delusions (7) Dementia of the Alzheimer's type with early onset with behavioral disturbance (8) Major neurocognitive disorder YOLANDA BURGESS MD Apr 08, 2020 21:10
--- NOTE | 2020-04-08 21:10 | PDOC ---
Exam Note: Khanh Note: Please also refer to the separate dictated note~for this date of service dictated separately.~Patient seen individually. Discussed the patient with Nursing staff reviewed the chart.~Reviewed interim history and current functioning. Reviewed vital signs,~Labs/ Radiology~and current medications noted below. Continue current treatment with the changes noted in the dictated addendum note Assessment: Vital Signs/I&O: Vital Signs Date Time Temp Pulse Resp B/P (MAP) Pulse Ox O2 Delivery O2 Flow Rate FiO2 04/08/20 20:27 98 04/08/20 15:49 98.2 64 20 117/63 (81) Room Air I & O 04/07/20 04/07/20 04/08/20 15:00 23:00 07:00 Intake Total 720 ml 480 ml Balance 720 ml 480 ml Current Medications: Meds: Current Medications Medications (Trade) Dose Ordered Sig/Zohaib Route PRN Reason Start Time Stop Time Status Last Admin Dose Admin Quetiapine Fumarate (SEROquel) 12.5 mg 0900,1700 PO 04/08/20 09:00 04/08/20 17:21 Quetiapine Fumarate (SEROquel) 25 mg DAILYWLUN PO 04/08/20 12:00 04/08/20 12:03 I have reviewed the current psychotropics carefully including drug interactions. Risk benefit ratio favors no change other than as noted in my dictated progress note. Diagnosis: Problems: (1) Impulse control disorder, unspecified (2) Anxiety disorder, unspecified (3) Dementia, vascular, with depression (4) Dementia, vascular, with delusions (5) Dementia in Alzheimer's disease with depression (6) Dementia in Alzheimer's disease with delusions (7) Dementia of the Alzheimer's type with early onset with behavioral disturbance (8) Major neurocognitive disorder YOLANDA BURGESS MD Apr 08, 2020 21:10
[2020-04-08] MEDS: ACETAMINOPHEN 325 MG TABLET PO PRN (21:44)
--- NOTE | 2020-04-08 22:08 | NUR ---
Pt lying in bed, yelling out and attempting to get out of bed without assist. When staff attempting to help him, he becomes agitated and begins screaming at them. Several staff members have tried multiple times to re-direct him without success, which includes: offering him fluids/food, repositioning him in bed, and toileting him. Pt very demanding, sarcastic, and impulsive. Pt was escorted to the quiet room in the [facility] for safety and PRN Zydis administered.
[2020-04-09] MEDS: THIAMINE 100 MG TABLET. PO SCH (06:02)
[2020-04-09] MEDS: POTASSIUM CHLORIDE 20 MEQ TABLET.ER. PO SCH (06:02)
[2020-04-09] MEDS: TAMSULOSIN 0.4 MG CAP.ER.24H. PO SCH (06:02)
[2020-04-09] MEDS: MEMANTINE 10 MG TABLET. PO SCH ×2 (06:03→20:26)
[2020-04-09] MEDS: LOSARTAN 50 MG TABLET. PO SCH (06:03)
[2020-04-09] MEDS: QUEtiapine 25 MG TABLET. PO SCH ×4 (06:03→20:25)
[2020-04-09] MEDS: ATENOLOL 25 MG TABLET PO SCH (06:04)
[2020-04-09] MEDS: ASPIRIN CHEWABLE 81 MG TABLET. PO SCH (06:04)
[2020-04-09 06:05] VITALS: BP 134/80
[2020-04-09] MEDS: FLUTICASONE/VILANTEROL 200/25 INHALER. INH SCH (06:05)
[2020-04-09] MEDS: FLUTICASONE 50MCG/NASAL SPRAY 16GM BOTTLE. NS SCH (06:05)
[2020-04-09] MEDS: amLODIPine BESYLATE 10 MG TABLET PO SCH (06:05)
--- NOTE | 2020-04-09 13:55 | NUR ---
Nursing note: Pt has been med compliant and cooperative this shift. Pt requested to lay back in bed this AM, after a short nap, pt returned to his wheelchair and has been more pleasant since. Pt has attempted to get out of his wheelchair unassisted a couple of times, but is able to be redirected. He is very disorganized, but no agitation noted thus far. He is currently sitting quietly in the day room listening to music. Will continue to monitor.
[2020-04-09 16:00] VITALS: BP 122/68
--- NOTE | 2020-04-09 16:40 | NUR ---
Wound Care Wound care consult for buttock wound. Pt has healed scar on left buttock that is peeling. Calazime cream applied. WC will sign off at this time. Please reconsult if new wounds develop. Pt left in WC in dining room for dinner
[2020-04-09] MEDS: DONEPEZIL HCL 5 MG TABLET. PO SCH (20:25)
[2020-04-09] MEDS: MIRTAZAPINE 7.5 MG TABLET. PO SCH (20:25)
[2020-04-09] MEDS: traZODone 50 MG TABLET. PO SCH (20:25)
[2020-04-09] MEDS: ATORVASTATIN CALCIUM 20 MG TABLET PO SCH (20:26)
[2020-04-09] MEDS: oxyCODONE IR 5 MG TABLET PO PRN (20:31)
--- NOTE | 2020-04-09 20:53 | PDOC ---
Exam Note: Khanh Note: This note is a late entry for 04/07/2020 covers elements not covered in my initial note. Subjective: The patient was seen face to face in the evening of 04/07/2020 with Kylah HINSON, discussed and reviewed the chart. He slept 5 hours previous night. During the day the patient has done better, slightly less restless, but this is still problematic in the afternoon. Previous night he was yelling. He was complaining of back pain. Received oxycodone, then was better. He remains impulsive but not trying to jump out of the chair. He does have a chair alarm. Review of Systems: Ambulation impaired in wheelchair. No CV, , pulmonary, eye, ENT system symptoms on review. Reliability poor. Mental Status Exam: The patient is oriented to himself. Insight and judgement, recent and remote memory, attention and concentration, fund of knowledge is poor consistent with his diagnosis. He is somewhat anxious, restless, wanted to confirm that I knew his last name and was pleased when I said his last name accurately. Laboratory Data: Reviewed. Impression: Major neurocognitive disorder Alzheimer vascular with delusion, depression, behavioral disturbance. Anxiety disorder unspecified. Impulse co ntrol disorder unspecified. Plan: Continue current psychotropics. Increase the 1 p.m. Seroquel from 12.5 mg to 25 mg. Continue rest unchanged. Assessment: Vital Signs/I&O: Vital Signs Date Time Temp Pulse Resp B/P (MAP) Pulse Ox O2 Delivery O2 Flow Rate FiO2 04/09/20 20:31 Room Air 04/09/20 16:00 98.3 54 20 122/68 (86) 98 I & O 04/08/20 04/08/20 04/09/20 15:00 23:00 07:00 Intake Total 240 ml 600 ml Balance 240 ml 600 ml Current Medications: Meds: Current Medications Medications (Trade) Dose Ordered Sig/Zohaib Route PRN Reason Start Time Stop Time Status Last Admin Dose Admin Amlodipine Besylate (Norvasc) 10 mg DAILY PO 04/04/20 09:00 04/09/20 06:05 Aspirin (Aspirin Chewable) 81 mg DAILY PO 04/04/20 09:00 04/09/20 06:04 Atenolol (Tenormin) 25 mg DAILY PO 04/04/20 09:00 04/09/20 06:04 Haloperidol (Haldol) 2.5 mg PRN Q8HRS PRN PO delusions 04/03/20 15:45 04/04/20 18:46 DC 04/04/20 10:16 Losartan Potassium (Cozaar) 50 mg DAILY PO 04/04/20 09:00 04/09/20 06:03 Memantine (Namenda) 10 mg BID PO 04/03/20 21:00 04/09/20 20:26 Quetiapine Fumarate (SEROquel) 75 mg QHS PO 04/03/20 21:00 04/09/20 20:25 Tamsulosin HCl (Flomax) 0.8 mg DAILY PO 04/04/20 09:00 04/09/20 06:02 Trazodone HCl (Desyrel) 50 mg QHS PO 04/03/20 21:00 04/09/20 20:25 Atorvastatin Calcium (Lipitor) 40 mg QHS PO 04/03/20 21:00 04/09/20 20:26 Artificial Tears (Refresh Classic) 1 drop PRN Q15MIN PRN OD DRY EYE 04/03/20 15:45 Donepezil HCl (Aricept) 5 mg HS PO 04/03/20 21:00 04/09/20 20:25 Fluticasone Propionate (Flonase) 1 spray DAILY NS 04/04/20 09:00 04/09/20 06:05 Fluticasone/ Vilanterol (Breo Ellipta 200-25 Mcg) 1 puff DAILY INH 04/04/20 09:00 04/09/20 06:05 Loperamide HCl (Imodium) 2 mg PRN Q15MIN PRN PO DIARRHEA 04/03/20 15:45 Al Hydroxide/Mg Hydroxide (Mylanta Plus Xs) 30 ml PRN Q2HR PRN PO DYSPEPSIA 04/03/20 15:45 Melatonin (Melatonin) 3 mg QHS PO 04/03/20 21:00 04/04/20 18:46 DC 04/03/20 20:23 Thiamine HCl (Vitamin B-1) 100 mg DAILY PO 04/04/20 09:00 04/09/20 06:02 Sodium Chloride (Saline Mist Nasal) 2 clifford PRN BID PRN NS NASAL CONGESTION 04/03/20 15:30 Acetaminophen (Tylenol) 650 mg PRN Q6HRS PRN PO MILD PAIN / TEMP > 100.3'F 04/03/20 16:30 04/08/20 21:44 Multi-Ingredient Ointment (Analgesic [place]) 1 clifford PRN QID PRN TP MUSCLE PAIN 04/03/20 16:30 04/07/20 01:56 Al Hydroxide/Mg Hydroxide (Mylanta Plus Xs) 15 ml PRN AFTMEALHC PRN PO DYSPEPSIA 04/03/20 16:30 04/04/20 08:38 DC Magnesium Hydroxide (Milk Of Magnesia) 2,400 mg PRN QHS PRN PO CONSTIPATION 04/03/20 16:30 Vitamin D (Vitamin D3) 50,000 unit WEEKLY PO 04/05/20 09:00 04/05/20 08:36 Mirtazapine (Remeron) 7.5 mg QHS PO 04/04/20 21:00 04/09/20 20:25 Quetiapine Fumarate (SEROquel) 12.5 mg 0900,1300,1700 PO 04/05/20 09:00 04/07/20 18:37 DC 04/07/20 17:05 Olanzapine (ZyPREXA ZYDIS) 2.5 mg PRN Q2HRS PRN PO PSYCHOSIS 04/04/20 18:45 04/08/20 21:45 Potassium Chloride (Klor-Con) 40 meq 1X ONCE PO 04/04/20 21:30 04/04/20 21:32 DC 04/04/20 21:30 Potassium Chloride (Klor-Con) 20 meq DAILYWBKFT PO 04/05/20 08:00 04/09/20 06:02 Oxycodone HCl (Roxicodone) 5 mg PRN Q6HRS PRN PO PAIN 04/07/20 16:30 04/09/20 20:31 Quetiapine Fumarate (SEROquel) 12.5 mg 0900,1700 PO 04/08/20 09:00 04/09/20 17:50 Quetiapine Fumarate (SEROquel) 25 mg DAILYWLUN PO 04/08/20 12:00 04/09/20 12:07 I have reviewed the current psychotropics carefully including drug interactions. Risk benefit ratio favors no change other than as noted in my dictated progress note. Diagnosis: Problems: (1) Impulse control disorder, unspecified (2) Anxiety disorder, unspecified (3) Dementia, vascular, with depression (4) Dementia, vascular, with delusions (5) Dementia in Alzheimer's disease with depression (6) Dementia in Alzheimer's disease with delusions (7) Dementia of the Alzheimer's type with early onset with behavioral disturbance (8) Major neurocognitive disorder YOLANDA BURGESS MD Apr 09, 2020 20:53
--- NOTE | 2020-04-09 21:16 | PDOC ---
Exam Note: Khanh Note: This note is a late entry for 04/08/2020 covers elements not covered in my initial note. Subjective: The patient was seen face to face in the evening of 04/08/2020 with Nathan HINSON, discussed and reviewed the chart. He slept 7-3/4 hours previous night. The patient remains confused, but less anxious, restless. He is talking about wanting to convert the wheelchair into a walker. I addressed this with him. Review of Systems: Ambulation impaired in wheelchair. No CV, , pulmonary, eye, ENT system symptoms on review. Mental Status Exam: The patient is oriented to himself. Insight and judgement, recent and remote memory, attention and concentration, fund of knowledge is poor consistent with his diagnosis. Laboratory Data: Reviewed. Impression: Major neurocognitive disorder Alzheimer vascular with delusion, depression, behavioral disturbance. Anxiety disorder unspecified. Impulse control disorder unspecified. Plan: Continue current psychotropics. Assessment: Vital Signs/I&O: Vital Signs Date Time Temp Pulse Resp B/P (MAP) Pulse Ox O2 Delivery O2 Flow Rate FiO2 04/09/20 20:31 Room Air 04/09/20 16:00 98.3 54 20 122/68 (86) 98 I & O 04/08/20 04/08/20 04/09/20 15:00 23:00 07:00 Intake Total 240 ml 600 ml Balance 240 ml 600 ml Current Medications: Meds: Current Medications Medications (Trade) Dose Ordered Sig/Zohaib Route PRN Reason Start Time Stop Time Status Last Admin Dose Admin Amlodipine Besylate (Norvasc) 10 mg DAILY PO 04/04/20 09:00 04/09/20 06:05 Aspirin (Aspirin Chewable) 81 mg DAILY PO 04/04/20 09:00 04/09/20 06:04 Atenolol (Tenormin) 25 mg DAILY PO 04/04/20 09:00 04/09/20 06:04 Haloperidol (Haldol) 2.5 mg PRN Q8HRS PRN PO delusions 04/03/20 15:45 04/04/20 18:46 DC 04/04/20 10:16 Losartan Potassium (Cozaar) 50 mg DAILY PO 04/04/20 09:00 04/09/20 06:03 Memantine (Namenda) 10 mg BID PO 04/03/20 21:00 04/09/20 20:26 Quetiapine Fumarate (SEROquel) 75 mg QHS PO 04/03/20 21:00 04/09/20 20:25 Tamsulosin HCl (Flomax) 0.8 mg DAILY PO 04/04/20 09:00 04/09/20 06:02 Trazodone HCl (Desyrel) 50 mg QHS PO 04/03/20 21:00 04/09/20 20:25 Atorvastatin Calcium (Lipitor) 40 mg QHS PO 04/03/20 21:00 04/09/20 20:26 Artificial Tears (Refresh Classic) 1 drop PRN Q15MIN PRN OD DRY EYE 04/03/20 15:45 Donepezil HCl (Aricept) 5 mg HS PO 04/03/20 21:00 04/09/20 20:25 Fluticasone Propionate (Flonase) 1 spray DAILY NS 04/04/20 09:00 04/09/20 06:05 Fluticasone/ Vilanterol (Breo Ellipta 200-25 Mcg) 1 puff DAILY INH 04/04/20 09:00 04/09/20 06:05 Loperamide HCl (Imodium) 2 mg PRN Q15MIN PRN PO DIARRHEA 04/03/20 15:45 Al Hydroxide/Mg Hydroxide (Mylanta Plus Xs) 30 ml PRN Q2HR PRN PO DYSPEPSIA 04/03/20 15:45 Melatonin (Melatonin) 3 mg QHS PO 04/03/20 21:00 04/04/20 18:46 DC 04/03/20 20:23 Thiamine HCl (Vitamin B-1) 100 mg DAILY PO 04/04/20 09:00 04/09/20 06:02 Sodium Chloride (Saline Mist Nasal) 2 clifford PRN BID PRN NS NASAL CONGESTION 04/03/20 15:30 Acetaminophen (Tylenol) 650 mg PRN Q6HRS PRN PO MILD PAIN / TEMP > 100.3'F 04/03/20 16:30 04/08/20 21:44 Multi-Ingredient Ointment (Analgesic Newell) 1 clifford PRN QID PRN TP MUSCLE PAIN 04/03/20 16:30 04/07/20 01:56 Al Hydroxide/Mg Hydroxide (Mylanta Plus Xs) 15 ml PRN AFTMEALHC PRN PO DYSPEPSIA 04/03/20 16:30 04/04/20 08:38 DC Magnesium Hydroxide (Milk Of Magnesia) 2,400 mg PRN QHS PRN PO CONSTIPATION 04/03/20 16:30 Vitamin D (Vitamin D3) 50,000 unit WEEKLY PO 04/05/20 09:00 04/05/20 08:36 Mirtazapine (Remeron) 7.5 mg QHS PO 04/04/20 21:00 04/09/20 20:25 Quetiapine Fumarate (SEROquel) 12.5 mg 0900,1300,1700 PO 04/05/20 09:00 04/07/20 18:37 DC 04/07/20 17:05 Olanzapine (ZyPREXA ZYDIS) 2.5 mg PRN Q2HRS PRN PO PSYCHOSIS 04/04/20 18:45 04/08/20 21:45 Potassium Chloride (Klor-Con) 40 meq 1X ONCE PO 04/04/20 21:30 04/04/20 21:32 DC 04/04/20 21:30 Potassium Chloride (Klor-Con) 20 meq DAILYWBKFT PO 04/05/20 08:00 04/09/20 06:02 Oxycodone HCl (Roxicodone) 5 mg PRN Q6HRS PRN PO PAIN 04/07/20 16:30 04/09/20 20:31 Quetiapine Fumarate (SEROquel) 12.5 mg 0900,1700 PO 04/08/20 09:00 04/09/20 17:50 Quetiapine Fumarate (SEROquel) 25 mg DAILYWLUN PO 04/08/20 12:00 04/09/20 12:07 I have reviewed the current psychotropics carefully including drug interactions. Risk benefit ratio favors no change other than as noted in my dictated progress note. Diagnosis: Problems: (1) Impulse control disorder, unspecified (2) Anxiety disorder, unspecified (3) Dementia, vascular, with depression (4) Dementia, vascular, with delusions (5) Dementia in Alzheimer's disease with depression (6) Dementia in Alzheimer's disease with delusions (7) Dementia of the Alzheimer's type with early onset with behavioral disturbance (8) Major neurocognitive disorder YOLANDA BURGESS MD Apr 09, 2020 21:16
--- NOTE | 2020-04-09 21:49 | PDOC ---
Exam Note: Khanh Note: Please also refer to the separate dictated note~for this date of service dictated separately.~Patient seen individually. Discussed the patient with Nursing staff reviewed the chart.~Reviewed interim history and current functioning. Reviewed vital signs,~Labs/ Radiology~and current medications noted below. Continue current treatment with the changes noted in the dictated addendum note Assessment: Vital Signs/I&O: Vital Signs Date Time Temp Pulse Resp B/P (MAP) Pulse Ox O2 Delivery O2 Flow Rate FiO2 04/09/20 20:31 Room Air 04/09/20 16:00 98.3 54 20 122/68 (86) 98 I & O 04/08/20 04/08/20 04/09/20 15:00 23:00 07:00 Intake Total 240 ml 600 ml Balance 240 ml 600 ml Current Medications: Meds: Current Medications Medications (Trade) Dose Ordered Sig/Zohaib Route PRN Reason Start Time Stop Time Status Last Admin Dose Admin Amlodipine Besylate (Norvasc) 10 mg DAILY PO 04/04/20 09:00 04/09/20 06:05 Aspirin (Aspirin Chewable) 81 mg DAILY PO 04/04/20 09:00 04/09/20 06:04 Atenolol (Tenormin) 25 mg DAILY PO 04/04/20 09:00 04/09/20 06:04 Haloperidol (Haldol) 2.5 mg PRN Q8HRS PRN PO delusions 04/03/20 15:45 04/04/20 18:46 DC 04/04/20 10:16 Losartan Potassium (Cozaar) 50 mg DAILY PO 04/04/20 09:00 04/09/20 06:03 Memantine (Namenda) 10 mg BID PO 04/03/20 21:00 04/09/20 20:26 Quetiapine Fumarate (SEROquel) 75 mg QHS PO 04/03/20 21:00 04/09/20 20:25 Tamsulosin HCl (Flomax) 0.8 mg DAILY PO 04/04/20 09:00 04/09/20 06:02 Trazodone HCl (Desyrel) 50 mg QHS PO 04/03/20 21:00 04/09/20 20:25 Atorvastatin Calcium (Lipitor) 40 mg QHS PO 04/03/20 21:00 04/09/20 20:26 Artificial Tears (Refresh Classic) 1 drop PRN Q15MIN PRN OD DRY EYE 04/03/20 15:45 Donepezil HCl (Aricept) 5 mg HS PO 04/03/20 21:00 04/09/20 20:25 Fluticasone Propionate (Flonase) 1 spray DAILY NS 04/04/20 09:00 04/09/20 06:05 Fluticasone/ Vilanterol (Breo Ellipta 200-25 Mcg) 1 puff DAILY INH 04/04/20 09:00 04/09/20 06:05 Loperamide HCl (Imodium) 2 mg PRN Q15MIN PRN PO DIARRHEA 04/03/20 15:45 Al Hydroxide/Mg Hydroxide (Mylanta Plus Xs) 30 ml PRN Q2HR PRN PO DYSPEPSIA 04/03/20 15:45 Melatonin (Melatonin) 3 mg QHS PO 04/03/20 21:00 04/04/20 18:46 DC 04/03/20 20:23 Thiamine HCl (Vitamin B-1) 100 mg DAILY PO 04/04/20 09:00 04/09/20 06:02 Sodium Chloride (Saline Mist Nasal) 2 clifford PRN BID PRN NS NASAL CONGESTION 04/03/20 15:30 Acetaminophen (Tylenol) 650 mg PRN Q6HRS PRN PO MILD PAIN / TEMP > 100.3'F 04/03/20 16:30 04/08/20 21:44 Multi-Ingredient Ointment (Analgesic Harrison) 1 clifford PRN QID PRN TP MUSCLE PAIN 04/03/20 16:30 04/07/20 01:56 Al Hydroxide/Mg Hydroxide (Mylanta Plus Xs) 15 ml PRN AFTMEALHC PRN PO DYSPEPSIA 04/03/20 16:30 04/04/20 08:38 DC Magnesium Hydroxide (Milk Of Magnesia) 2,400 mg PRN QHS PRN PO CONSTIPATION 04/03/20 16:30 Vitamin D (Vitamin D3) 50,000 unit WEEKLY PO 04/05/20 09:00 04/05/20 08:36 Mirtazapine (Remeron) 7.5 mg QHS PO 04/04/20 21:00 04/09/20 20:25 Quetiapine Fumarate (SEROquel) 12.5 mg 0900,1300,1700 PO 04/05/20 09:00 04/07/20 18:37 DC 04/07/20 17:05 Olanzapine (ZyPREXA ZYDIS) 2.5 mg PRN Q2HRS PRN PO PSYCHOSIS 04/04/20 18:45 04/08/20 21:45 Potassium Chloride (Klor-Con) 40 meq 1X ONCE PO 04/04/20 21:30 04/04/20 21:32 DC 04/04/20 21:30 Potassium Chloride (Klor-Con) 20 meq DAILYWBKFT PO 04/05/20 08:00 04/09/20 06:02 Oxycodone HCl (Roxicodone) 5 mg PRN Q6HRS PRN PO PAIN 04/07/20 16:30 04/09/20 20:31 Quetiapine Fumarate (SEROquel) 12.5 mg 0900,1700 PO 04/08/20 09:00 04/09/20 17:50 Quetiapine Fumarate (SEROquel) 25 mg DAILYWLUN PO 04/08/20 12:00 04/09/20 12:07 I have reviewed the current psychotropics carefully including drug interactions. Risk benefit ratio favors no change other than as noted in my dictated progress note. 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
--- NOTE | 2020-04-10 02:00 | NUR ---
Early in shift pt sat quietly in day room watching TV. He took meds whole without difficulty. After sleeping awhile he began trying to get oob, to go cut hay, then wanted to stand then sit repeatedly and was unsteady. He was placed it the QR for safety where he yelled at staff for 1 hour before going back to sleep.
[2020-04-10 05:58] VITALS: BP 163/81
[2020-04-10] MEDS: TAMSULOSIN 0.4 MG CAP.ER.24H. PO SCH (07:43)
[2020-04-10] MEDS: amLODIPine BESYLATE 10 MG TABLET PO SCH (07:43)
[2020-04-10] MEDS: QUEtiapine 25 MG TABLET. PO SCH ×4 (07:44→20:03)
[2020-04-10] MEDS: LOSARTAN 50 MG TABLET. PO SCH (07:44)
[2020-04-10] MEDS: ATENOLOL 25 MG TABLET PO SCH (07:44)
[2020-04-10] MEDS: MEMANTINE 10 MG TABLET. PO SCH ×2 (07:44→20:03)
[2020-04-10] MEDS: ASPIRIN CHEWABLE 81 MG TABLET. PO SCH (07:45)
[2020-04-10] MEDS: POTASSIUM CHLORIDE 20 MEQ TABLET.ER. PO SCH (07:45)
[2020-04-10] MEDS: FLUTICASONE/VILANTEROL 200/25 INHALER. INH SCH (07:46)
[2020-04-10] MEDS: FLUTICASONE 50MCG/NASAL SPRAY 16GM BOTTLE. NS SCH (07:47)
[2020-04-10] MEDS: THIAMINE 100 MG TABLET. PO SCH (07:49)
--- NOTE | 2020-04-10 09:37 | NUR ---
Nursing note: Pt in dining room for AM med pass and assessment. He is pleasant, med compliant, and cooperative at time of assessment. After breakfast pt became restless, attempting to get out of his wheelchair unassisted. He was getting agitated with redirection and demanding to go to bed. Pt was taken back to his room where he is currently asleep in his bed. Will continue to monitor.
[2020-04-10 09:43] LABS: ALBUMIN 3.3 g/dL (3.4-5.0); CALCIUM 8.8 mg/dL (8.5-10.1); CREATININE 1.1 mg/dL (0.7-1.3); GFR 64.1; POTASSIUM 3.8 mmol/L (3.5-5.1); TOTAL BILIRUBIN 0.9 mg/dL (0.2-1.0); TOTAL PROTEIN 6.7 g/dL (6.4-8.2)
[2020-04-10 09:59] LABS: BASO % 0 % (0-3); EOS # 0.1 x10^3/uL (0.0-0.7); EOS % 2 % (0-3); HEMOGLOBIN 12.2 g/dL (13.0-17.5); LYMPH % 19 % (24-48); MEAN CORPUSCULAR HEMOGLOBIN 31 pg (25-35); MEAN CORPUSCULAR HGB CONC 33 g/dL (31-37); MEAN CORPUSCULAR VOLUME 93 fL (79-100); MONO # 0.3 x10^3/uL (0.0-1.1); MONO % 6 % (0-9); NEUT # 3.7 x10^3uL (1.8-7.7); NEUT % 73 % (31-73); PLATELET COUNT 227 x10^3/uL (140-400); WHITE BLOOD COUNT 5.1 x10^3/uL (4.0-11.0)
[2020-04-10 15:54] VITALS: BP 115/63
[2020-04-10] MEDS: traZODone 50 MG TABLET. PO SCH (20:02)
[2020-04-10] MEDS: MIRTAZAPINE 15 MG TABLET PO SCH (20:02)
[2020-04-10] MEDS: DONEPEZIL HCL 10 MG TABLET PO SCH (20:02)
[2020-04-10] MEDS: ATORVASTATIN CALCIUM 20 MG TABLET PO SCH (20:03)
--- NOTE | 2020-04-10 20:54 | PDOC ---
Exam Note: Khanh Note: Please also refer to the separate dictated note~for this date of service dictated separately.~Patient seen individually. Discussed the patient with Nursing staff reviewed the chart.~Reviewed interim history and current functioning. Reviewed vital signs,~Labs/ Radiology~and current medications noted below. Continue current treatment with the changes noted in the dictated addendum note Assessment: Vital Signs/I&O: Vital Signs Date Time Temp Pulse Resp B/P (MAP) Pulse Ox O2 Delivery O2 Flow Rate FiO2 04/10/20 15:54 98.2 50 18 115/63 (80) 94 04/09/20 22:00 Room Air I & O 04/09/20 04/09/20 04/10/20 15:00 23:00 07:00 Intake Total 1140 ml 600 ml Balance 1140 ml 600 ml Labs: Laboratory Tests Test 04/10/20 09:00 White Blood Count 5.1 x10^3/uL (4.0-11.0) Red Blood Count 4.00 x10^6/uL (4.30-5.70) L Hemoglobin 12.2 g/dL (13.0-17.5) L Hematocrit 37.0 % (39.0-53.0) L Mean Corpuscular Volume 93 fL (79-100) Mean Corpuscular Hemoglobin 31 pg (25-35) Mean Corpuscular Hemoglobin Concent 33 g/dL (31-37) Red Cell Distribution Width 14.0 % (11.5-14.5) Platelet Count 227 x10^3/uL (140-400) Neutrophils (%) (Auto) 73 % (31-73) Lymphocytes (%) (Auto) 19 % (24-48) L Monocytes (%) (Auto) 6 % (0-9) Eosinophils (%) (Auto) 2 % (0-3) Basophils (%) (Auto) 0 % (0-3) Neutrophils # (Auto) 3.7 x10^3uL (1.8-7.7) Lymphocytes # (Auto) 1.0 x10^3/uL (1.0-4.8) Monocytes # (Auto) 0.3 x10^3/uL (0.0-1.1) Eosinophils # (Auto) 0.1 x10^3/uL (0.0-0.7) Basophils # (Auto) 0.0 x10^3/uL (0.0-0.2) Sodium Level 143 mmol/L (136-145) Potassium Level 3.8 mmol/L (3.5-5.1) Chloride Level 105 mmol/L (98-107) Carbon Dioxide Level 29 mmol/L (21-32) Anion Gap 9 (6-14) Blood Urea Nitrogen 15 mg/dL (8-26) Creatinine 1.1 mg/dL (0.7-1.3) Estimated GFR (Cockcroft-Gault) 64.1 BUN/Creatinine Ratio 14 (6-20) Glucose Level 205 mg/dL (70-99) H Calcium Level 8.8 mg/dL (8.5-10.1) Total Bilirubin 0.9 mg/dL (0.2-1.0) Aspartate Amino Transferase (AST) 24 U/L (15-37) Alanine Aminotransferase (ALT) 27 U/L (16-63) Alkaline Phosphatase 90 U/L (46-116) Total Protein 6.7 g/dL (6.4-8.2) Albumin 3.3 g/dL (3.4-5.0) L Albumin/Globulin Ratio 1.0 (1.0-1.7) Current Medications: Meds: Current Medications Medications (Trade) Dose Ordered Sig/Zohaib Route PRN Reason Start Time Stop Time Status Last Admin Dose Admin Donepezil HCl (Aricept) 10 mg HS PO 04/10/20 21:00 04/10/20 20:02 Mirtazapine (Remeron) 15 mg QHS PO 04/10/20 21:00 04/10/20 20:02 I have reviewed the current psychotropics carefully including drug interactions. Risk benefit ratio favors no change other than as noted in my dictated progress note. Diagnosis: Problems: (1) Impulse control disorder, unspecified (2) Anxiety disorder, unspecified (3) Dementia, vascular, with depression (4) Dementia, vascular, with delusions (5) Dementia in Alzheimer's disease with depression (6) Dementia in Alzheimer's disease with delusions (7) Dementia of the Alzheimer's type with early onset with behavioral disturbance (8) Major neurocognitive disorder YOLANDA BURGESS MD Apr 10, 2020 20:54
--- NOTE | 2020-04-11 03:13 | NUR ---
Bethany pt has been in his bed and sleeping most of the time. When awake he took meds whole without difficulty and was cooperative with [facility] cares. He has had no behaviors tonight.
[2020-04-11 06:00] VITALS: BP 189/79
[2020-04-11] MEDS: LOSARTAN 50 MG TABLET. PO SCH (08:10)
[2020-04-11] MEDS: MEMANTINE 10 MG TABLET. PO SCH ×2 (08:12→19:51)
[2020-04-11] MEDS: ASPIRIN CHEWABLE 81 MG TABLET. PO SCH (08:12)
[2020-04-11] MEDS: THIAMINE 100 MG TABLET. PO SCH (08:12)
[2020-04-11] MEDS: amLODIPine BESYLATE 10 MG TABLET PO SCH (08:13)
[2020-04-11] MEDS: POTASSIUM CHLORIDE 20 MEQ TABLET.ER. PO SCH (08:13)
[2020-04-11] MEDS: QUEtiapine 25 MG TABLET. PO SCH ×4 (08:13→19:51)
[2020-04-11] MEDS: ATENOLOL 25 MG TABLET PO SCH (08:13)
[2020-04-11] MEDS: FLUTICASONE/VILANTEROL 200/25 INHALER. INH SCH (08:17)
[2020-04-11] MEDS: FLUTICASONE 50MCG/NASAL SPRAY 16GM BOTTLE. NS SCH (08:17)
[2020-04-11] MEDS: SERTRALINE 25 MG TABLET. PO SCH (08:17)
[2020-04-11] MEDS: TAMSULOSIN 0.4 MG CAP.ER.24H. PO SCH (08:17)
--- NOTE | 2020-04-11 09:42 | PDOC ---
Exam Note: Khanh Note: This note is a late entry for 04/09/2020 covers elements not covered in my initial note. Subjective: The patient was seen face to face in the evening of 04/09/2020 with Corina HINSON, discussed and reviewed the chart. He slept 5-1/2 hours previous night. Overall the patient has been less anxious, doing better on 04/09/2020. Previous night he was labile, angry, has spent much time in bed on 04/09, took a nap, then was on his wheelchair, more appropriate, less trying to jump out of the chair. Review of Systems: Ambulation impaired in wheelchair. No CV, , pulmonary, eye, ENT system symptoms on review. Mental Status Exam: The patient is oriented to himself. He wanted to make sure I knew his last name which I did. Insight and judgement, recent and remote memory, attention and concentration, fund of knowledge is poor consistent with his diagnosis. No suicidal or homicidal ideation. Laboratory Data: Reviewed. Impression: Major neurocognitive disorder Alzheimer vascular with delusion, depression, behavioral disturbance. Anxiety disorder unspecified. Impulse control disorder unspecified. Plan: No change from initial note. We may need to increase Seroquel in due course. Assessment: Vital Signs/I&O: Vital Signs Date Time Temp Pulse Resp B/P (MAP) Pulse Ox O2 Delivery O2 Flow Rate FiO2 04/11/20 08:13 50 189/79 04/11/20 06:00 97.8 16 95 04/09/20 22:00 Room Air I & O 04/10/20 04/10/20 04/11/20 15:00 23:00 07:00 Intake Total 840 ml 120 ml Balance 840 ml 120 ml Current Medications: Meds: Current Medications Medications (Trade) Dose Ordered Sig/Zohaib Route PRN Reason Start Time Stop Time Status Last Admin Dose Admin Amlodipine Besylate (Norvasc) 10 mg DAILY PO 04/04/20 09:00 04/11/20 08:13 Aspirin (Aspirin Chewable) 81 mg DAILY PO 04/04/20 09:00 04/11/20 08:12 Atenolol (Tenormin) 25 mg DAILY PO 04/04/20 09:00 04/11/20 08:13 Haloperidol (Haldol) 2.5 mg PRN Q8HRS PRN PO delusions 04/03/20 15:45 04/04/20 18:46 DC 04/04/20 10:16 Losartan Potassium (Cozaar) 50 mg DAILY PO 04/04/20 09:00 04/11/20 08:10 Memantine (Namenda) 10 mg BID PO 04/03/20 21:00 04/11/20 08:12 Quetiapine Fumarate (SEROquel) 75 mg QHS PO 04/03/20 21:00 04/10/20 20:03 Tamsulosin HCl (Flomax) 0.8 mg DAILY PO 04/04/20 09:00 04/11/20 08:17 Trazodone HCl (Desyrel) 50 mg QHS PO 04/03/20 21:00 04/10/20 20:02 Atorvastatin Calcium (Lipitor) 40 mg QHS PO 04/03/20 21:00 04/10/20 20:03 Artificial Tears (Refresh Classic) 1 drop PRN Q15MIN PRN OD DRY EYE 04/03/20 15:45 Donepezil HCl (Aricept) 5 mg HS PO 04/03/20 21:00 04/10/20 17:50 DC 04/09/20 20:25 Fluticasone Propionate (Flonase) 1 spray DAILY NS 04/04/20 09:00 04/11/20 08:17 Fluticasone/ Vilanterol (Breo Ellipta 200-25 Mcg) 1 puff DAILY INH 04/04/20 09:00 04/11/20 08:17 Loperamide HCl (Imodium) 2 mg PRN Q15MIN PRN PO DIARRHEA 04/03/20 15:45 Al Hydroxide/Mg Hydroxide (Mylanta Plus Xs) 30 ml PRN Q2HR PRN PO DYSPEPSIA 04/03/20 15:45 Melatonin (Melatonin) 3 mg QHS PO 04/03/20 21:00 04/04/20 18:46 DC 04/03/20 20:23 Thiamine HCl (Vitamin B-1) 100 mg DAILY PO 04/04/20 09:00 04/11/20 08:12 Sodium Chloride (Saline Mist Nasal) 2 clifford PRN BID PRN NS NASAL CONGESTION 04/03/20 15:30 Acetaminophen (Tylenol) 650 mg PRN Q6HRS PRN PO MILD PAIN / TEMP > 100.3'F 04/03/20 16:30 04/08/20 21:44 Multi-Ingredient Ointment (Analgesic Hawthorne) 1 clifford PRN QID PRN TP MUSCLE PAIN 04/03/20 16:30 04/07/20 01:56 Al Hydroxide/Mg Hydroxide (Mylanta Plus Xs) 15 ml PRN AFTMEALHC PRN PO DYSPEPSIA 04/03/20 16:30 04/04/20 08:38 DC Magnesium Hydroxide (Milk Of Magnesia) 2,400 mg PRN QHS PRN PO CONSTIPATION 04/03/20 16:30 Vitamin D (Vitamin D3) 50,000 unit WEEKLY PO 04/05/20 09:00 04/05/20 08:36 Mirtazapine (Remeron) 7.5 mg QHS PO 04/04/20 21:00 04/10/20 17:50 DC 04/09/20 20:25 Quetiapine Fumarate (SEROquel) 12.5 mg 0900,1300,1700 PO 04/05/20 09:00 04/07/20 18:37 DC 04/07/20 17:05 Olanzapine (ZyPREXA ZYDIS) 2.5 mg PRN Q2HRS PRN PO PSYCHOSIS 04/04/20 18:45 04/09/20 22:48 Potassium Chloride (Klor-Con) 40 meq 1X ONCE PO 04/04/20 21:30 04/04/20 21:32 DC 04/04/20 21:30 Potassium Chloride (Klor-Con) 20 meq DAILYWBKFT PO 04/05/20 08:00 04/11/20 08:13 Oxycodone HCl (Roxicodone) 5 mg PRN Q6HRS PRN PO PAIN 04/07/20 16:30 04/09/20 20:31 Quetiapine Fumarate (SEROquel) 12.5 mg 0900,1700 PO 04/08/20 09:00 04/11/20 08:13 Quetiapine Fumarate (SEROquel) 25 mg DAILYWLUN PO 04/08/20 12:00 04/10/20 12:31 Donepezil HCl (Aricept) 10 mg HS PO 04/10/20 21:00 04/10/20 20:02 Mirtazapine (Remeron) 15 mg QHS PO 04/10/20 21:00 04/10/20 20:02 Sertraline HCl (Zoloft) 25 mg DAILY PO 04/11/20 09:00 04/13/20 21:00 04/11/20 08:17 Sertraline HCl (Zoloft) 50 mg DAILY PO 04/14/20 09:00 Current Medications Medications (Trade) Dose Ordered Sig/Zohaib Route PRN Reason Start Time Stop Time Status Last Admin Dose Admin Donepezil HCl (Aricept) 10 mg HS PO 04/10/20 21:00 04/10/20 20:02 Mirtazapine (Remeron) 15 mg QHS PO 04/10/20 21:00 04/10/20 20:02 Sertraline HCl (Zoloft) 25 mg DAILY PO 04/11/20 09:00 04/13/20 21:00 04/11/20 08:17 I have reviewed the current psychotropics carefully including drug interactions. Risk benefit ratio favors no change other than as noted in my dictated progress note. Diagnosis: Problems: (1) Impulse control disorder, unspecified (2) Anxiety disorder, unspecified (3) Dementia, vascular, with depression (4) Dementia, vascular, with delusions (5) Dementia in Alzheimer's disease with depression (6) Dementia in Alzheimer's disease with delusions (7) Dementia of the Alzheimer's type with early onset with behavioral disturbance (8) Major neurocognitive disorder YOLANDA BURGESS MD Apr 11, 2020 09:42
--- NOTE | 2020-04-11 10:14 | PDOC ---
Exam Note: Khanh Note: This note is a late entry for 04/10/2020 covers elements not covered in my initial note. Subjective: The patient was seen face to face in the evening of 04/10/2020 with Corina HINSON, discussed and reviewed the chart. He slept 4 hours previous night. Previous night he was somewhat restless, up until 11 p.m. Received Zyprexa Zydis, then did better. After breakfast today, he was agitated. He remains anxious, then did better rest of the day. Review of Systems: Ambulation impaired in wheelchair. No CV, , pulmonary, eye, ENT system symptoms on review. Mental Status Exam: The patient is oriented to himself. Insight and judgement, recent and remote memory, attention and concentration, fund of knowledge is poor consistent with his diagnosis. No suicidal or homicidal ideation. Laboratory Data: Reviewed. Impression: Major neurocognitive disorder Alzheimer vascular with delusion, depression, behavioral disturbance. Anxiety disorder unspecified. Impulse control disorder unspecified. Plan: We will increase the patients Aricept from 5 mg daily to 10 mg daily, Remeron from 7.5 mg h.s. to 15 mg h.s. Start Zoloft 25 mg a day for 3 days then 50 mg a day. Continue rest unchanged. Adjust further as clinically indicated. Assessment: Vital Signs/I&O: Vital Signs Date Time Temp Pulse Resp B/P (MAP) Pulse Ox O2 Delivery O2 Flow Rate FiO2 04/11/20 08:13 50 189/79 04/11/20 06:00 97.8 16 95 04/09/20 22:00 Room Air I & O 04/10/20 04/10/20 04/11/20 15:00 23:00 07:00 Intake Total 840 ml 120 ml Balance 840 ml 120 ml Current Medications: Meds: Current Medications Medications (Trade) Dose Ordered Sig/Zohaib Route PRN Reason Start Time Stop Time Status Last Admin Dose Admin Amlodipine Besylate (Norvasc) 10 mg DAILY PO 04/04/20 09:00 04/11/20 08:13 Aspirin (Aspirin Chewable) 81 mg DAILY PO 04/04/20 09:00 04/11/20 08:12 Atenolol (Tenormin) 25 mg DAILY PO 04/04/20 09:00 04/11/20 08:13 Haloperidol (Haldol) 2.5 mg PRN Q8HRS PRN PO delusions 04/03/20 15:45 04/04/20 18:46 DC 04/04/20 10:16 Losartan Potassium (Cozaar) 50 mg DAILY PO 04/04/20 09:00 04/11/20 08:10 Memantine (Namenda) 10 mg BID PO 04/03/20 21:00 04/11/20 08:12 Quetiapine Fumarate (SEROquel) 75 mg QHS PO 04/03/20 21:00 04/10/20 20:03 Tamsulosin HCl (Flomax) 0.8 mg DAILY PO 04/04/20 09:00 04/11/20 08:17 Trazodone HCl (Desyrel) 50 mg QHS PO 04/03/20 21:00 04/10/20 20:02 Atorvastatin Calcium (Lipitor) 40 mg QHS PO 04/03/20 21:00 04/10/20 20:03 Artificial Tears (Refresh Classic) 1 drop PRN Q15MIN PRN OD DRY EYE 04/03/20 15:45 Donepezil HCl (Aricept) 5 mg HS PO 04/03/20 21:00 04/10/20 17:50 DC 04/09/20 20:25 Fluticasone Propionate (Flonase) 1 spray DAILY NS 04/04/20 09:00 04/11/20 08:17 Fluticasone/ Vilanterol (Breo Ellipta 200-25 Mcg) 1 puff DAILY INH 04/04/20 09:00 04/11/20 08:17 Loperamide HCl (Imodium) 2 mg PRN Q15MIN PRN PO DIARRHEA 04/03/20 15:45 Al Hydroxide/Mg Hydroxide (Mylanta Plus Xs) 30 ml PRN Q2HR PRN PO DYSPEPSIA 04/03/20 15:45 Melatonin (Melatonin) 3 mg QHS PO 04/03/20 21:00 04/04/20 18:46 DC 04/03/20 20:23 Thiamine HCl (Vitamin B-1) 100 mg DAILY PO 04/04/20 09:00 04/11/20 08:12 Sodium Chloride (Saline Mist Nasal) 2 clifford PRN BID PRN NS NASAL CONGESTION 04/03/20 15:30 Acetaminophen (Tylenol) 650 mg PRN Q6HRS PRN PO MILD PAIN / TEMP > 100.3'F 04/03/20 16:30 04/08/20 21:44 Multi-Ingredient Ointment (Analgesic [place]) 1 clifford PRN QID PRN TP MUSCLE PAIN 04/03/20 16:30 04/07/20 01:56 Al Hydroxide/Mg Hydroxide (Mylanta Plus Xs) 15 ml PRN AFTMEALHC PRN PO DYSPEPSIA 04/03/20 16:30 04/04/20 08:38 DC Magnesium Hydroxide (Milk Of Magnesia) 2,400 mg PRN QHS PRN PO CONSTIPATION 04/03/20 16:30 Vitamin D (Vitamin D3) 50,000 unit WEEKLY PO 04/05/20 09:00 04/05/20 08:36 Mirtazapine (Remeron) 7.5 mg QHS PO 04/04/20 21:00 04/10/20 17:50 DC 04/09/20 20:25 Quetiapine Fumarate (SEROquel) 12.5 mg 0900,1300,1700 PO 04/05/20 09:00 04/07/20 18:37 DC 04/07/20 17:05 Olanzapine (ZyPREXA ZYDIS) 2.5 mg PRN Q2HRS PRN PO PSYCHOSIS 04/04/20 18:45 04/09/20 22:48 Potassium Chloride (Klor-Con) 40 meq 1X ONCE PO 04/04/20 21:30 04/04/20 21:32 DC 04/04/20 21:30 Potassium Chloride (Klor-Con) 20 meq DAILYWBKFT PO 04/05/20 08:00 04/11/20 08:13 Oxycodone HCl (Roxicodone) 5 mg PRN Q6HRS PRN PO PAIN 04/07/20 16:30 04/09/20 20:31 Quetiapine Fumarate (SEROquel) 12.5 mg 0900,1700 PO 04/08/20 09:00 04/11/20 08:13 Quetiapine Fumarate (SEROquel) 25 mg DAILYWLUN PO 04/08/20 12:00 04/10/20 12:31 Donepezil HCl (Aricept) 10 mg HS PO 04/10/20 21:00 3/2/21 20:02 Mirtazapine (Remeron) 15 mg QHS PO 04/10/20 21:00 04/10/20 20:02 Sertraline HCl (Zoloft) 25 mg DAILY PO 04/11/20 09:00 04/13/20 21:00 04/11/20 08:17 Sertraline HCl (Zoloft) 50 mg DAILY PO 04/14/20 09:00 Current Medications Medications (Trade) Dose Ordered Sig/Zohaib Route PRN Reason Start Time Stop Time Status Last Admin Dose Admin Donepezil HCl (Aricept) 10 mg HS PO 04/10/20 21:00 04/10/20 20:02 Mirtazapine (Remeron) 15 mg QHS PO 04/10/20 21:00 04/10/20 20:02 Sertraline HCl (Zoloft) 25 mg DAILY PO 04/11/20 09:00 04/13/20 21:00 04/11/20 08:17 I have reviewed the current psychotropics carefully including drug interactions. Risk benefit ratio favors no change other than as noted in my dictated progress note. Diagnosis: Problems: (1) Impulse control disorder, unspecified (2) Anxiety disorder, unspecified (3) Dementia, vascular, with depression (4) Dementia, vascular, with delusions (5) Dementia in Alzheimer's disease with depression (6) Dementia in Alzheimer's disease with delusions (7) Dementia of the Alzheimer's type with early onset with behavioral disturbance (8) Major neurocognitive disorder YOLANDA BURGESS MD Apr 11, 2020 10:14
--- NOTE | 2020-04-11 10:31 | NUR ---
Nursing note: Pt in his room after breakfast at time of AM med pass and assessment. He is pleasant, med compliant and cooperative. He denies having any complaints. He wished to go back to bed at that time. He is currently resting quietly in his bed. Will continue to monitor.
[2020-04-11 15:21] VITALS: BP 107/64
[2020-04-11] MEDS: DONEPEZIL HCL 10 MG TABLET PO SCH (19:51)
[2020-04-11] MEDS: traZODone 50 MG TABLET. PO SCH (19:51)
[2020-04-11] MEDS: MIRTAZAPINE 15 MG TABLET PO SCH (19:51)
[2020-04-11] MEDS: ATORVASTATIN CALCIUM 20 MG TABLET PO SCH (19:52)
--- NOTE | 2020-04-11 20:59 | PDOC ---
Exam Note: Khanh Note: Please also refer to the separate dictated note~for this date of service dictated separately.~Patient seen individually. Discussed the patient with Nursing staff reviewed the chart.~Reviewed interim history and current functioning. Reviewed vital signs,~Labs/ Radiology~and current medications noted below. Continue current treatment with the changes noted in the dictated addendum note Assessment: Vital Signs/I&O: Vital Signs Date Time Temp Pulse Resp B/P (MAP) Pulse Ox O2 Delivery O2 Flow Rate FiO2 04/11/20 15:21 97.3 56 17 107/64 (78) 96 04/09/20 22:00 Room Air I & O 04/10/20 04/10/20 04/11/20 15:00 23:00 07:00 Intake Total 840 ml 120 ml Balance 840 ml 120 ml Current Medications: Meds: Current Medications Medications (Trade) Dose Ordered Sig/Zohaib Route PRN Reason Start Time Stop Time Status Last Admin Dose Admin Donepezil HCl (Aricept) 10 mg HS PO 04/10/20 21:00 04/11/20 19:51 Mirtazapine (Remeron) 15 mg QHS PO 04/10/20 21:00 04/11/20 19:51 Sertraline HCl (Zoloft) 25 mg DAILY PO 04/11/20 09:00 04/13/20 21:00 04/11/20 08:17 I have reviewed the current psychotropics carefully including drug interactions. Risk benefit ratio favors no change other than as noted in my dictated progress note. Diagnosis: Problems: (1) Impulse control disorder, unspecified (2) Anxiety disorder, unspecified (3) Dementia, vascular, with depression (4) Dementia, vascular, with delusions (5) Dementia in Alzheimer's disease with depression (6) Dementia in Alzheimer's disease with delusions (7) Dementia of the Alzheimer's type with early onset with behavioral disturbance (8) Major neurocognitive disorder YOLANDA BURGESS MD Apr 11, 2020 20:59
--- NOTE | 2020-04-11 21:56 | NUR ---
This evening pt sat in dayroom and was pleasant and social. He was able to say he is in [place] and the year is 2008. Meds were taken whole with no difficulty. He was cooperative with HS care and has been sleeping. He has had no behaviors tonight.
[2020-04-12 05:44] VITALS: BP 145/72
--- NOTE | 2020-04-12 07:26 | PDOC ---
Exam Note: Khnah Note: This note is a late entry for 04/11/2020 covers elements not covered in my initial note. Subjective: The patient was seen face to face in the evening of 04/11/2020 with Corina HINSON, discussed and reviewed the chart. He slept 6-1/2 hours previous night. The patient remains confused but much less anxious. He is not trying to jump out of the chair, much less restless. Review of Systems: Ambulation impaired in wheelchair. No CV, , pulmonary, eye, ENT system symptoms on review. Mental Status Exam: The patient is oriented to himself. He is pleasant, verbal, wanting to shake my hand. He was much less anxious, appropriate, smiling. Insight and judgement, recent and remote memory, attention and concentration, fund of knowledge is poor consistent with his diagnosis. Laboratory Data: Reviewed. Impression: Major neurocognitive disorder Alzheimer vascular with delusion, depression, behavioral disturbance. Anxiety disorder unspecified. Impulse control disorder unspecified. Plan: No change from initial note. Assessment: Vital Signs/I&O: Vital Signs Date Time Temp Pulse Resp B/P (MAP) Pulse Ox O2 Delivery O2 Flow Rate FiO2 04/12/20 05:44 98.5 60 18 145/72 (96) 94 04/09/20 22:00 Room Air I & O 04/11/20 04/11/20 04/12/20 15:00 23:00 07:00 Intake Total 5023 ml 720 ml Balance 5023 ml 720 ml Current Medications: Meds: Current Medications Medications (Trade) Dose Ordered Sig/Zohaib Route PRN Reason Start Time Stop Time Status Last Admin Dose Admin Sertraline HCl (Zoloft) 25 mg DAILY PO 04/11/20 09:00 04/13/20 21:00 04/11/20 08:17 I have reviewed the current psychotropics carefully including drug interactions. Risk benefit ratio favors no change other than as noted in my dictated progress note. Diagnosis: Problems: (1) Impulse control disorder, unspecified (2) Anxiety disorder, unspecified (3) Dementia, vascular, with depression (4) Dementia, vascular, with delusions (5) Dementia in Alzheimer's disease with depression (6) Dementia in Alzheimer's disease with delusions (7) Dementia of the Alzheimer's type with early onset with behavioral disturbance (8) Major neurocognitive disorder YOLANDA BURGESS MD Apr 12, 2020 07:26
[2020-04-12] MEDS: MEMANTINE 10 MG TABLET. PO SCH ×2 (08:35→19:59)
[2020-04-12] MEDS: ASPIRIN CHEWABLE 81 MG TABLET. PO SCH (08:35)
[2020-04-12] MEDS: POTASSIUM CHLORIDE 20 MEQ TABLET.ER. PO SCH (08:35)
[2020-04-12] MEDS: SERTRALINE 25 MG TABLET. PO SCH (08:35)
[2020-04-12] MEDS: ATENOLOL 25 MG TABLET PO SCH (08:35)
[2020-04-12] MEDS: THIAMINE 100 MG TABLET. PO SCH (08:35)
[2020-04-12] MEDS: QUEtiapine 25 MG TABLET. PO SCH ×4 (08:35→19:59)
[2020-04-12] MEDS: TAMSULOSIN 0.4 MG CAP.ER.24H. PO SCH (08:35)
[2020-04-12] MEDS: LOSARTAN 50 MG TABLET. PO SCH (08:36)
[2020-04-12] MEDS: amLODIPine BESYLATE 10 MG TABLET PO SCH (08:36)
[2020-04-12] MEDS: CHOLECALCIFEROL (VITAMIN D3) 50,000 UNIT CAPSULE PO SCH (08:36)
[2020-04-12] MEDS: FLUTICASONE/VILANTEROL 200/25 INHALER. INH SCH (08:38)
[2020-04-12] MEDS: FLUTICASONE 50MCG/NASAL SPRAY 16GM BOTTLE. NS SCH (09:00)
--- NOTE | 2020-04-12 11:40 | TX PLAN ---
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 Change Sleep, Angry, Confusi on/Disoriented, Poor impulse control Problem in Patient's Words: When asked, Clark stated a "Mercury Franck" brought him here. He did not recall behaviors that led up to hospitalization but did acknowledge having trouble with his memory. Additional Admission Comments: Per intake record, yelling out, restless, transfers himself (after saying he can't), screaming at others, anxious, agitated, put his hands over the carry all driver's eyes in the car, impulsive, insomnia. Problems Active Problems: restless agitated yelling out verbally aggressive threatens others refusing medications Inactive Problems: intakes of meals are adequate sleep is adequate Pt Strengths/Limitations Ability for Crawford: Poor Cognitive Functioning/Ability: Poor Communication Skills/Ability: Fair Financial Resources: Fair Insight/Judgement: Poor Intellectual Ability: Fair Physical Health: Fair Social Skills: Fair Stability in Family: Fair Verbal Skills: Fair Discharge Criteria Discharge Criteria: Adequate arrangements @DC, Improved behavior, Improved mood/thought Preliminary Discharge Plan Preliminary DC Plan: Memory Care Other Arrangements: [facility] or [facility] Special Precautions Special Precautions: Agitation/Assault Fall Risk: High Initial D/C Plan Memory care placement Identified Discharge Needs: Clark will return to [facility] or possibly [facility] if they are able to met Bill's needs. Currently Utilized Resources Currently Utilized Resources/P: PCP Neurologist Referrals Community Resources: Psychiatrist, out patient, if available Identified Problems/Hx/Goals Objectives/Short-Term Goals Short Term Goals: Control abnormal behavior, Dec. Aggression, Dec. Outbursts, Medication Stabilization, Monitor Med Effects Short Term Goals in Patient's: Per POA, mood and behavior stabilization. Interventions/Frequency Staff Interventions/Frequency&: Nursing to provide routine safety checks, medication administration, and adl assistance. Psychiatrist services three times weekly. SW visits twice weekly. Recreational and SW group activities as Clark is willing. 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 Social: Clark has enjoyed [employer]is[employer] dancing and [employer]azz[employer] music. Education: Clark graduated high school in [place], [place]. Community Follow-up PCP Neurology Psychiatry, if available. Community Provider/Family Inpu: gasper Lobato/CHEN, participated in team meeting via phone on 04/05/20. Treatment Plan Explained Patient/Consulting It Architect had this treatment plan explained to him/her as indicated by the signature below and has been given the opportunity to ask questions and make suggestions: Date: Patient/Consulting It Architect Signature: Status Update Update WEEKLY NOTE/UPDATE: Clark is averaging 85% of meal intakes and seven hours of sleep at night. Clark tends to be restless at night and has had difficulty sleeping. He can be fixated on going home at times but has responded to re- direction. Clark has participated minimally in five recreational therapy groups and has improved behavior with less intentionally irritating his peers. Cheryle, daughter/CHEN, participated in team meeting via phone. Tentative d/c date will be middle to late next week. MIRLANDE will send referral to Dannie at [facility] to determine if that will be a placement option at time of d/c. DEMETRIUS DENNY Apr 12, 2020 11:39
--- NOTE | 2020-04-12 11:55 | NUR ---
MIRLANDE contacted Dannie at [facility] who agreed to review referral for Bill. MIRLANDE faxed current notes, medication list, and labs for review. Awaiting admit decision. Addendum: 04/12/20 at 1241 by DEMETRIUS NOGUEIRA MIRLANDE faxed current notes, medication list, and labs to Antoinette at [facility] for review.
--- NOTE | 2020-04-12 12:01 | NUR ---
WEEKLY ACTIVITY THERAPY NOTE Date of Admission: 04/03/2020 Date of AT Assessment: 04/06/20 Precipitating behaviors that initiated intake and admission: yelling out, restless, transfers himself (states he can't sit still), screaming at others, anxious, agitated, restless, put his hands over the drivers eyes in the car, impulsive, insomnia Goal aimed: to increase relaxation and engagement Initial Goal: Pt. will participate in at least five Activity Therapy groups per week. Goal repeated 3/4 Weekly progress towards goal: met goal, 5/5 Group participation level: 5 min Weekly highlights: spoke about traveling during songs and states group, deep breathing and the importance of exercise Behaviors observed: Pt came into group late and was agitated. Pt said that he does not like this place and would never even put his dog here. Pt requested socks because his feet were cold, RN went to get pt socks. Pt remained agitated and asked numerous questions about the hospital/staff. AT asked pt if he would like to participate in trivia and pt said "I don't want to do anything with you people."Pt was yelling out during group so RN moved him to the hallway. Pt returned later on and was intentionally trying to provoke staff/peers. Pt said "I came back to irritate people." Pt began to yell out again so he was then taken back to his room. Pt did answer a couple of trivia questions. morning Plan: repeat goal Beneficial adaptations:
[2020-04-12 17:24] VITALS: BP 136/72
[2020-04-12] MEDS: DONEPEZIL HCL 10 MG TABLET PO SCH (19:58)
[2020-04-12] MEDS: ATORVASTATIN CALCIUM 20 MG TABLET PO SCH (19:59)
[2020-04-12] MEDS: traZODone 50 MG TABLET. PO SCH (19:59)
[2020-04-12] MEDS: MIRTAZAPINE 15 MG TABLET PO SCH (19:59)
--- NOTE | 2020-04-12 20:56 | PDOC ---
Exam Note: Khanh Note: Please also refer to the separate dictated note~for this date of service dictated separately.~Patient seen individually. Discussed the patient with Nursing staff reviewed the chart.~Reviewed interim history and current functioning. Reviewed vital signs,~Labs/ Radiology~and current medications noted below. Continue current treatment with the changes noted in the dictated addendum note Assessment: Vital Signs/I&O: Vital Signs Date Time Temp Pulse Resp B/P (MAP) Pulse Ox O2 Delivery O2 Flow Rate FiO2 04/12/20 17:24 98.3 51 20 136/72 (93) 96 04/09/20 22:00 Room Air I & O 04/11/20 04/11/20 04/12/20 15:00 23:00 07:00 Intake Total 5023 ml 720 ml Balance 5023 ml 720 ml Current Medications: Meds: Current Medications Medications (Trade) Dose Ordered Sig/Zohaib Route PRN Reason Start Time Stop Time Status Last Admin Dose Admin Amlodipine Besylate (Norvasc) 10 mg DAILY PO 04/04/20 09:00 04/12/20 08:36 Aspirin (Aspirin Chewable) 81 mg DAILY PO 04/04/20 09:00 04/12/20 08:35 Atenolol (Tenormin) 25 mg DAILY PO 04/04/20 09:00 04/12/20 08:35 Haloperidol (Haldol) 2.5 mg PRN Q8HRS PRN PO delusions 04/03/20 15:45 04/04/20 18:46 DC 04/04/20 10:16 Losartan Potassium (Cozaar) 50 mg DAILY PO 04/04/20 09:00 04/12/20 08:36 Memantine (Namenda) 10 mg BID PO 04/03/20 21:00 04/12/20 19:59 Quetiapine Fumarate (SEROquel) 75 mg QHS PO 04/03/20 21:00 04/12/20 19:59 Tamsulosin HCl (Flomax) 0.8 mg DAILY PO 04/04/20 09:00 04/12/20 08:35 Trazodone HCl (Desyrel) 50 mg QHS PO 04/03/20 21:00 04/12/20 19:59 Atorvastatin Calcium (Lipitor) 40 mg QHS PO 04/03/20 21:00 04/12/20 19:59 Artificial Tears (Refresh Classic) 1 drop PRN Q15MIN PRN OD DRY EYE 04/03/20 15:45 Donepezil HCl (Aricept) 5 mg HS PO 04/03/20 21:00 04/10/20 17:50 DC 04/09/20 20:25 Fluticasone Propionate (Flonase) 1 spray DAILY NS 04/04/20 09:00 04/11/20 08:17 Fluticasone/ Vilanterol (Breo Ellipta 200-25 Mcg) 1 puff DAILY INH 04/04/20 09:00 04/11/20 08:17 Loperamide HCl (Imodium) 2 mg PRN Q15MIN PRN PO DIARRHEA 04/03/20 15:45 Al Hydroxide/Mg Hydroxide (Mylanta Plus Xs) 30 ml PRN Q2HR PRN PO DYSPEPSIA 04/03/20 15:45 Melatonin (Melatonin) 3 mg QHS PO 04/03/20 21:00 04/04/20 18:46 DC 04/03/20 20:23 Thiamine HCl (Vitamin B-1) 100 mg DAILY PO 04/04/20 09:00 04/12/20 08:35 Sodium Chloride (Saline Mist Nasal) 2 clifford PRN BID PRN NS NASAL CONGESTION 04/03/20 15:30 Acetaminophen (Tylenol) 650 mg PRN Q6HRS PRN PO MILD PAIN / TEMP > 100.3'F 04/03/20 16:30 04/08/20 21:44 Multi-Ingredient Ointment (Analgesic [place]) 1 clifford PRN QID PRN TP MUSCLE PAIN 04/03/20 16:30 04/07/20 01:56 Al Hydroxide/Mg Hydroxide (Mylanta Plus Xs) 15 ml PRN AFTMEALHC PRN PO DYSPEPSIA 04/03/20 16:30 04/04/20 08:38 DC Magnesium Hydroxide (Milk Of Magnesia) 2,400 mg PRN QHS PRN PO CONSTIPATION 04/03/20 16:30 Vitamin D (Vitamin D3) 50,000 unit WEEKLY PO 04/05/20 09:00 04/12/20 08:36 Mirtazapine (Remeron) 7.5 mg QHS PO 04/04/20 21:00 04/10/20 17:50 DC 04/09/20 20:25 Quetiapine Fumarate (SEROquel) 12.5 mg 0900,1300,1700 PO 04/05/20 09:00 04/07/20 18:37 DC 04/07/20 17:05 Olanzapine (ZyPREXA ZYDIS) 2.5 mg PRN Q2HRS PRN PO PSYCHOSIS 04/04/20 18:45 04/09/20 22:48 Potassium Chloride (Klor-Con) 40 meq 1X ONCE PO 04/04/20 21:30 04/04/20 21:32 DC 04/04/20 21:30 Potassium Chloride (Klor-Con) 20 meq DAILYWBKFT PO 04/05/20 08:00 04/12/20 08:35 Oxycodone HCl (Roxicodone) 5 mg PRN Q6HRS PRN PO PAIN 04/07/20 16:30 04/09/20 20:31 Quetiapine Fumarate (SEROquel) 12.5 mg 0900,1700 PO 04/08/20 09:00 04/12/20 17:16 Quetiapine Fumarate (SEROquel) 25 mg DAILYWLUN PO 04/08/20 12:00 04/12/20 12:00 Donepezil HCl (Aricept) 10 mg HS PO 04/10/20 21:00 04/12/20 19:58 Mirtazapine (Remeron) 15 mg QHS PO 04/10/20 21:00 04/12/20 19:59 Sertraline HCl (Zoloft) 25 mg DAILY PO 04/11/20 09:00 04/13/20 21:00 04/12/20 08:35 Sertraline HCl (Zoloft) 50 mg DAILY PO 04/14/20 09:00 I have reviewed the current psychotropics carefully including drug interactions. Risk benefit ratio favors no change other than as noted in my dictated progress note. Diagnosis: Problems: (1) Impulse control disorder, unspecified (2) Anxiety disorder, unspecified (3) Dementia, vascular, with depression (4) Dementia, vascular, with delusions (5) Dementia in Alzheimer's disease with depression (6) Dementia in Alzheimer's disease with delusions (7) Dementia of the Alzheimer's type with early onset with behavioral disturbance (8) Major neurocognitive disorder YOLANDA BURGESS MD Apr 12, 2020 20:56
--- NOTE | 2020-04-12 22:51 | NUR ---
Nursing Note Pt in the day room, pleasant cooperative and compliant. Denies complaints, no behaviors.
[2020-04-13 05:51] VITALS: BP 178/86
--- NOTE | 2020-04-13 07:43 | PDOC ---
Exam Note: Khanh Note: This note is a late entry for 04/12/2020 covers elements not covered in my initial note. Subjective: The patient was seen face to face in the morning of 04/12/2020 for a treatment team meeting with Kalyani Bernabe, Namita Molina and Lorene (social media developer), Yazmin Sexton and Anjelica, activity therapy and Kelin HINSON, discussed and reviewed the chart. He slept 4-3/4 hours previous night. The patients daughter Mary Jane was present for the treatment team meeting. We had discussion about the patients diagnoses, current psychotropics, adjustments and improvement in his anxiety and mood lability. He is fixated on obsessing about going home. Review of Systems: Ambulation impaired in wheelchair. No CV, , pulmonary, eye, ENT system symptoms on review. Mental Status Exam: The patient is oriented to himself. Insight and judgement, recent and remote memory, attention and concentration, fund of knowledge is poor consistent with his diagnosis. Laboratory Data: Reviewed. Impression: Major neurocognitive disorder Alzheimer vascular with delusion, depression, behavioral disturbance. Anxiety disorder unspecified. Impulse control disorder unspecified. Plan: No change from initial note. We will gradually increase the Zoloft further. Maintain Seroquel. Assessment: Vital Signs/I&O: Vital Signs Date Time Temp Pulse Resp B/P (MAP) Pulse Ox O2 Delivery O2 Flow Rate FiO2 04/13/20 05:51 97.6 61 16 178/86 (116) 94 04/09/20 22:00 Room Air I & O 04/12/20 04/12/20 04/13/20 15:00 23:00 07:00 Intake Total 560 ml 240 ml Balance 560 ml 240 ml Current Medications: Meds: Current Medications Medications (Trade) Dose Ordered Sig/Zohaib Route PRN Reason Start Time Stop Time Status Last Admin Dose Admin Amlodipine Besylate (Norvasc) 10 mg DAILY PO 04/04/20 09:00 04/12/20 08:36 Aspirin (Aspirin Chewable) 81 mg DAILY PO 04/04/20 09:00 04/12/20 08:35 Atenolol (Tenormin) 25 mg DAILY PO 04/04/20 09:00 04/12/20 08:35 Haloperidol (Haldol) 2.5 mg PRN Q8HRS PRN PO delusions 04/03/20 15:45 04/04/20 18:46 DC 04/04/20 10:16 Losartan Potassium (Cozaar) 50 mg DAILY PO 04/04/20 09:00 04/12/20 08:36 Memantine (Namenda) 10 mg BID PO 04/03/20 21:00 04/12/20 19:59 Quetiapine Fumarate (SEROquel) 75 mg QHS PO 04/03/20 21:00 04/12/20 19:59 Tamsulosin HCl (Flomax) 0.8 mg DAILY PO 04/04/20 09:00 04/12/20 08:35 Trazodone HCl (Desyrel) 50 mg QHS PO 04/03/20 21:00 04/12/20 19:59 Atorvastatin Calcium (Lipitor) 40 mg QHS PO 04/03/20 21:00 04/12/20 19:59 Artificial Tears (Refresh Classic) 1 drop PRN Q15MIN PRN OD DRY EYE 04/03/20 15:45 Donepezil HCl (Aricept) 5 mg HS PO 04/03/20 21:00 04/10/20 17:50 DC 04/09/20 20:25 Fluticasone Propionate (Flonase) 1 spray DAILY NS 04/04/20 09:00 04/11/20 08:17 Fluticasone/ Vilanterol (Breo Ellipta 200-25 Mcg) 1 puff DAILY INH 04/04/20 09:00 04/11/20 08:17 Loperamide HCl (Imodium) 2 mg PRN Q15MIN PRN PO DIARRHEA 04/03/20 15:45 Al Hydroxide/Mg Hydroxide (Mylanta Plus Xs) 30 ml PRN Q2HR PRN PO DYSPEPSIA 04/03/20 15:45 Melatonin (Melatonin) 3 mg QHS PO 04/03/20 21:00 04/04/20 18:46 DC 04/03/20 20:23 Thiamine HCl (Vitamin B-1) 100 mg DAILY PO 04/04/20 09:00 04/12/20 08:35 Sodium Chloride (Saline Mist Nasal) 2 clifford PRN BID PRN NS NASAL CONGESTION 04/03/20 15:30 Acetaminophen (Tylenol) 650 mg PRN Q6HRS PRN PO MILD PAIN / TEMP > 100.3'F 04/03/20 16:30 04/08/20 21:44 Multi-Ingredient Ointment (Analgesic [place]) 1 clifford PRN QID PRN TP MUSCLE PAIN 04/03/20 16:30 04/07/20 01:56 Al Hydroxide/Mg Hydroxide (Mylanta Plus Xs) 15 ml PRN AFTMEALHC PRN PO DYSPEPSIA 04/03/20 16:30 04/04/20 08:38 DC Magnesium Hydroxide (Milk Of Magnesia) 2,400 mg PRN QHS PRN PO CONSTIPATION 04/03/20 16:30 Vitamin D (Vitamin D3) 50,000 unit WEEKLY PO 04/05/20 09:00 04/12/20 08:36 Mirtazapine (Remeron) 7.5 mg QHS PO 04/04/20 21:00 04/10/20 17:50 DC 04/09/20 20:25 Quetiapine Fumarate (SEROquel) 12.5 mg 0900,1300,1700 PO 04/05/20 09:00 04/07/20 18:37 DC 04/07/20 17:05 Olanzapine (ZyPREXA ZYDIS) 2.5 mg PRN Q2HRS PRN PO PSYCHOSIS 04/04/20 18:45 04/09/20 22:48 Potassium Chloride (Klor-Con) 40 meq 1X ONCE PO 04/04/20 21:30 04/04/20 21:32 DC 04/04/20 21:30 Potassium Chloride (Klor-Con) 20 meq DAILYWBKFT PO 04/05/20 08:00 04/12/20 08:35 Oxycodone HCl (Roxicodone) 5 mg PRN Q6HRS PRN PO PAIN 04/07/20 16:30 04/09/20 20:31 Quetiapine Fumarate (SEROquel) 12.5 mg 0900,1700 PO 04/08/20 09:00 04/12/20 17:16 Quetiapine Fumarate (SEROquel) 25 mg DAILYWLUN PO 04/08/20 12:00 04/12/20 12:00 Donepezil HCl (Aricept) 10 mg HS PO 04/10/20 21:00 04/12/20 19:58 Mirtazapine (Remeron) 15 mg QHS PO 04/10/20 21:00 04/12/20 19:59 Sertraline HCl (Zoloft) 25 mg DAILY PO 04/11/20 09:00 04/13/20 21:00 04/12/20 08:35 Sertraline HCl (Zoloft) 50 mg DAILY PO 04/14/20 09:00 I have reviewed the current psychotropics carefully including drug interactions. Risk benefit ratio favors no change other than as noted in my dictated progress note. Diagnosis: Problems: (1) Impulse control disorder, unspecified (2) Anxiety disorder, unspecified (3) Dementia, vascular, with depression (4) Dementia, vascular, with delusions (5) Dementia in Alzheimer's disease with depression (6) Dementia in Alzheimer's disease with delusions (7) Dementia of the Alzheimer's type with early onset with behavioral disturbance (8) Major neurocognitive disorder YOLANDA BURGESS MD Apr 13, 2020 07:43
[2020-04-13] MEDS: THIAMINE 100 MG TABLET. PO SCH (08:06)
[2020-04-13] MEDS: ASPIRIN CHEWABLE 81 MG TABLET. PO SCH (08:06)
[2020-04-13] MEDS: POTASSIUM CHLORIDE 20 MEQ TABLET.ER. PO SCH (08:06)
[2020-04-13] MEDS: TAMSULOSIN 0.4 MG CAP.ER.24H. PO SCH (08:06)
[2020-04-13] MEDS: ATENOLOL 25 MG TABLET PO SCH (08:07)
[2020-04-13] MEDS: amLODIPine BESYLATE 10 MG TABLET PO SCH (08:07)
[2020-04-13] MEDS: QUEtiapine 25 MG TABLET. PO SCH ×4 (08:07→19:59)
[2020-04-13] MEDS: LOSARTAN 50 MG TABLET. PO SCH (08:07)
[2020-04-13] MEDS: MEMANTINE 10 MG TABLET. PO SCH ×2 (08:08→19:58)
[2020-04-13] MEDS: SERTRALINE 25 MG TABLET. PO SCH (08:08)
[2020-04-13] MEDS: FLUTICASONE 50MCG/NASAL SPRAY 16GM BOTTLE. NS SCH (08:12)
[2020-04-13] MEDS: FLUTICASONE/VILANTEROL 200/25 INHALER. INH SCH (08:12)
[2020-04-13 16:03] VITALS: BP 155/66
[2020-04-13] MEDS: DONEPEZIL HCL 10 MG TABLET PO SCH (19:57)
[2020-04-13] MEDS: traZODone 50 MG TABLET. PO SCH (19:58)
[2020-04-13] MEDS: MIRTAZAPINE 15 MG TABLET PO SCH (19:58)
[2020-04-13] MEDS: ATORVASTATIN CALCIUM 20 MG TABLET PO SCH (19:58)
[2020-04-13] MEDS: oxyCODONE IR 5 MG TABLET PO PRN (20:01)
--- NOTE | 2020-04-13 20:43 | PDOC ---
Exam Note: Khanh Note: Please also refer to the separate dictated note~for this date of service dictated separately.~Patient seen individually. Discussed the patient with Nursing staff reviewed the chart.~Reviewed interim history and current functioning. Reviewed vital signs,~Labs/ Radiology~and current medications noted below. Continue current treatment with the changes noted in the dictated addendum note Assessment: Vital Signs/I&O: Vital Signs Date Time Temp Pulse Resp B/P (MAP) Pulse Ox O2 Delivery O2 Flow Rate FiO2 04/13/20 20:01 98 04/13/20 16:03 97.4 57 18 155/66 (95) Room Air I & O 04/12/20 04/12/20 04/13/20 15:00 23:00 07:00 Intake Total 560 ml 240 ml Balance 560 ml 240 ml Current Medications: Meds: Current Medications Medications (Trade) Dose Ordered Sig/Zohaib Route PRN Reason Start Time Stop Time Status Last Admin Dose Admin Amlodipine Besylate (Norvasc) 10 mg DAILY PO 04/04/20 09:00 04/13/20 08:07 Aspirin (Aspirin Chewable) 81 mg DAILY PO 04/04/20 09:00 04/13/20 08:06 Atenolol (Tenormin) 25 mg DAILY PO 04/04/20 09:00 04/13/20 08:07 Haloperidol (Haldol) 2.5 mg PRN Q8HRS PRN PO delusions 04/03/20 15:45 04/04/20 18:46 DC 04/04/20 10:16 Losartan Potassium (Cozaar) 50 mg DAILY PO 04/04/20 09:00 04/13/20 08:07 Memantine (Namenda) 10 mg BID PO 04/03/20 21:00 04/13/20 19:58 Quetiapine Fumarate (SEROquel) 75 mg QHS PO 04/03/20 21:00 04/13/20 19:59 Tamsulosin HCl (Flomax) 0.8 mg DAILY PO 04/04/20 09:00 04/13/20 08:06 Trazodone HCl (Desyrel) 50 mg QHS PO 04/03/20 21:00 04/13/20 19:58 Atorvastatin Calcium (Lipitor) 40 mg QHS PO 04/03/20 21:00 04/13/20 19:58 Artificial Tears (Refresh Classic) 1 drop PRN Q15MIN PRN OD DRY EYE 04/03/20 15:45 Donepezil HCl (Aricept) 5 mg HS PO 04/03/20 21:00 04/10/20 17:50 DC 04/09/20 20:25 Fluticasone Propionate (Flonase) 1 spray DAILY NS 04/04/20 09:00 04/13/20 08:12 Fluticasone/ Vilanterol (Breo Ellipta 200-25 Mcg) 1 puff DAILY INH 04/04/20 09:00 04/13/20 08:12 Loperamide HCl (Imodium) 2 mg PRN Q15MIN PRN PO DIARRHEA 04/03/20 15:45 Al Hydroxide/Mg Hydroxide (Mylanta Plus Xs) 30 ml PRN Q2HR PRN PO DYSPEPSIA 04/03/20 15:45 Melatonin (Melatonin) 3 mg QHS PO 04/03/20 21:00 04/04/20 18:46 DC 04/03/20 20:23 Thiamine HCl (Vitamin B-1) 100 mg DAILY PO 04/04/20 09:00 04/13/20 08:06 Sodium Chloride (Saline Mist Nasal) 2 clifford PRN BID PRN NS NASAL CONGESTION 04/03/20 15:30 Acetaminophen (Tylenol) 650 mg PRN Q6HRS PRN PO MILD PAIN / TEMP > 100.3'F 04/03/20 16:30 04/08/20 21:44 Multi-Ingredient Ointment (Analgesic [place]) 1 clifford PRN QID PRN TP MUSCLE PAIN 04/03/20 16:30 04/07/20 01:56 Al Hydroxide/Mg Hydroxide (Mylanta Plus Xs) 15 ml PRN AFTMEALHC PRN PO DYSPEPSIA 04/03/20 16:30 04/04/20 08:38 DC Magnesium Hydroxide (Milk Of Magnesia) 2,400 mg PRN QHS PRN PO CONSTIPATION 04/03/20 16:30 Vitamin D (Vitamin D3) 50,000 unit WEEKLY PO 04/05/20 09:00 04/12/20 08:36 Mirtazapine (Remeron) 7.5 mg QHS PO 04/04/20 21:00 04/10/20 17:50 DC 04/09/20 20:25 Quetiapine Fumarate (SEROquel) 12.5 mg 0900,1300,1700 PO 04/05/20 09:00 04/07/20 18:37 DC 04/07/20 17:05 Olanzapine (ZyPREXA ZYDIS) 2.5 mg PRN Q2HRS PRN PO PSYCHOSIS 04/04/20 18:45 04/13/20 20:01 Potassium Chloride (Klor-Con) 40 meq 1X ONCE PO 04/04/20 21:30 04/04/20 21:32 DC 04/04/20 21:30 Potassium Chloride (Klor-Con) 20 meq DAILYWBKFT PO 04/05/20 08:00 04/13/20 08:06 Oxycodone HCl (Roxicodone) 5 mg PRN Q6HRS PRN PO PAIN 04/07/20 16:30 04/13/20 20:01 Quetiapine Fumarate (SEROquel) 12.5 mg 0900,1700 PO 04/08/20 09:00 04/13/20 17:00 Quetiapine Fumarate (SEROquel) 25 mg DAILYWLUN PO 04/08/20 12:00 04/13/20 12:00 Donepezil HCl (Aricept) 10 mg HS PO 04/10/20 21:00 04/13/20 19:57 Mirtazapine (Remeron) 15 mg QHS PO 04/10/20 21:00 04/13/20 19:58 Sertraline HCl (Zoloft) 25 mg DAILY PO 04/11/20 09:00 04/13/20 21:00 04/13/20 08:08 Sertraline HCl (Zoloft) 50 mg DAILY PO 04/14/20 09:00 I have reviewed the current psychotropics carefully including drug interactions. Risk benefit ratio favors no change other than as noted in my dictated progress note. Diagnosis: Problems: (1) Impulse control disorder, unspecified (2) Anxiety disorder, unspecified (3) Dementia, vascular, with depression (4) Dementia, vascular, with delusions (5) Dementia in Alzheimer's disease with depression (6) Dementia in Alzheimer's disease with delusions (7) Dementia of the Alzheimer's type with early onset with behavioral disturbance (8) Major neurocognitive disorder YOLANDA BURGESS MD 5, 2021 20:43
--- NOTE | 2020-04-13 23:23 | NUR ---
Nursing Note Initially pt was getting irritated with a confused peer in the hallway, talking aggressively toward her. Wheels in the hallway in wheel chair, seemingly looking for something or someone. Pt pleasant and cooperative later this pm. Takes po meds willingly no agitation.
[2020-04-14 06:34] VITALS: BP 162/80
[2020-04-14] MEDS: FLUTICASONE/VILANTEROL 200/25 INHALER. INH SCH (09:00)
[2020-04-14] MEDS: FLUTICASONE 50MCG/NASAL SPRAY 16GM BOTTLE. NS SCH (09:03)
[2020-04-14] MEDS: ASPIRIN CHEWABLE 81 MG TABLET. PO SCH (09:03)
[2020-04-14] MEDS: TAMSULOSIN 0.4 MG CAP.ER.24H. PO SCH (09:04)
[2020-04-14] MEDS: SERTRALINE 25 MG TABLET. PO SCH (09:04)
[2020-04-14] MEDS: POTASSIUM CHLORIDE 20 MEQ TABLET.ER. PO SCH (09:04)
[2020-04-14] MEDS: THIAMINE 100 MG TABLET. PO SCH (09:05)
[2020-04-14] MEDS: amLODIPine BESYLATE 10 MG TABLET PO SCH (09:05)
[2020-04-14] MEDS: ATENOLOL 25 MG TABLET PO SCH (09:05)
[2020-04-14] MEDS: MEMANTINE 10 MG TABLET. PO SCH ×2 (09:05→20:14)
[2020-04-14] MEDS: LOSARTAN 50 MG TABLET. PO SCH (09:05)
[2020-04-14] MEDS: QUEtiapine 25 MG TABLET. PO SCH ×4 (09:06→20:14)
--- NOTE | 2020-04-14 10:10 | NUR ---
Pt has started the morning with abrasiveness and attention seeking. After breakfast in the dining room he requested to go back to bed for a nap, which CNAs accommodated for him. After approx 30 minutes in bed he began to scream repeatedly, "I want my nurse! I want my nurse!" CNAs approached him before this nurse was able to, and he informed CNAs he wanted to go back to dining room to socialize and the CNAs once again accommodated his request. It was there I assessed him and administered his morning medications, and afterwords he requested to be taken back to his room so he could nap. He is med compliant, A&O to self only, forgetful/confused. Absent of SI/HI behaviors, does not appear to be distracted/distressed by potential VH/AH/delusions. He denies pain. Will pass on to the next shift.
[2020-04-14 16:11] VITALS: BP 118/74
[2020-04-14] MEDS: DONEPEZIL HCL 10 MG TABLET PO SCH (20:13)
[2020-04-14] MEDS: ATORVASTATIN CALCIUM 20 MG TABLET PO SCH (20:13)
[2020-04-14] MEDS: traZODone 50 MG TABLET. PO SCH (20:14)
[2020-04-14] MEDS: MIRTAZAPINE 15 MG TABLET PO SCH (20:14)
--- NOTE | 2020-04-14 21:22 | PDOC ---
Exam Note: Khanh Note: Please also refer to the separate dictated note~for this date of service dictated separately.~Patient seen individually. Discussed the patient with Nursing staff reviewed the chart.~Reviewed interim history and current functioning. Reviewed vital signs,~Labs/ Radiology~and current medications noted below. Continue current treatment with the changes noted in the dictated addendum note Assessment: Vital Signs/I&O: Vital Signs Date Time Temp Pulse Resp B/P (MAP) Pulse Ox O2 Delivery O2 Flow Rate FiO2 04/14/20 16:11 97.4 63 20 118/74 (89) 98 04/14/20 06:34 Room Air I & O 04/13/20 04/13/20 04/14/20 15:00 23:00 07:00 Intake Total 400 ml 600 ml Balance 400 ml 600 ml Current Medications: Meds: Current Medications Medications (Trade) Dose Ordered Sig/Zohaib Route PRN Reason Start Time Stop Time Status Last Admin Dose Admin Sertraline HCl (Zoloft) 50 mg DAILY PO 04/14/20 09:00 04/14/20 09:04 I have reviewed the current psychotropics carefully including drug interactions. Risk benefit ratio favors no change other than as noted in my dictated progress note. Diagnosis: Problems: (1) Impulse control disorder, unspecified (2) Anxiety disorder, unspecified (3) Dementia, vascular, with depression (4) Dementia, vascular, with delusions (5) Dementia in Alzheimer's disease with depression (6) Dementia in Alzheimer's disease with delusions (7) Dementia of the Alzheimer's type with early onset with behavioral disturbance (8) Major neurocognitive disorder YOLANDA BURGESS MD Apr 14, 2020 21:22
--- NOTE | 2020-04-14 23:43 | NUR ---
Pt located in the dayroom this evening. Calm and pleasant. A/O x3, confused with what year it was. Compliant with whole medications.
[2020-04-15 06:21] VITALS: BP 130/64
--- NOTE | 2020-04-15 07:29 | PDOC ---
Exam Note: Khanh Note: This note is a late entry for 04/13/2020 covers elements not covered in my initial note. Subjective: The patient was seen individually in the evening of 04/13/2020 with Bruna HINSON, discussed and reviewed the chart. He slept 7 hours previous night. The patient was agitated in the morning, complaining of his bottom hurting, later did better. He gets agitated, less anxious, not trying to jump out of his chair. Review of Systems: Ambulation impaired in wheelchair. No CV, , pulmonary, eye, ENT system symptoms on review. Mental Status Exam: The patient is oriented to himself. He is pleasant, verbal, interactive, confused, trying to shake my hand. Speech is coherent. Abstraction is fair. Computation impaired. Language function intact. Mood and affect somewhat anxious, labile. Laboratory Data: Reviewed. Impression: Major neurocognitive disorder Alzheimer vascular with delusion, depression, behavioral disturbance. Anxiety disorder unspecified. Impulse control disorder unspecified. Plan: Continue psychotropics from initial note. We may adjust the Seroquel further depdnign on his progress. Assessment: Vital Signs/I&O: Vital Signs Date Time Temp Pulse Resp B/P (MAP) Pulse Ox O2 Delivery O2 Flow Rate FiO2 04/15/20 06:21 98.7 50 18 130/64 (86) 92 Room Air I & O 04/14/20 04/14/20 04/15/20 15:00 23:00 07:00 Intake Total 720 ml 480 ml Balance 720 ml 480 ml Current Medications: Meds: Current Medications Medications (Trade) Dose Ordered Sig/Zohaib Route PRN Reason Start Time Stop Time Status Last Admin Dose Admin Amlodipine Besylate (Norvasc) 10 mg DAILY PO 04/04/20 09:00 04/14/20 09:05 Aspirin (Aspirin Chewable) 81 mg DAILY PO 04/04/20 09:00 04/14/20 09:03 Atenolol (Tenormin) 25 mg DAILY PO 04/04/20 09:00 04/14/20 09:05 Haloperidol (Haldol) 2.5 mg PRN Q8HRS PRN PO delusions 04/03/20 15:45 04/04/20 18:46 DC 04/04/20 10:16 Losartan Potassium (Cozaar) 50 mg DAILY PO 04/04/20 09:00 04/14/20 09:05 Memantine (Namenda) 10 mg BID PO 04/03/20 21:00 04/14/20 20:14 Quetiapine Fumarate (SEROquel) 75 mg QHS PO 04/03/20 21:00 04/14/20 20:14 Tamsulosin HCl (Flomax) 0.8 mg DAILY PO 04/04/20 09:00 04/14/20 09:04 Trazodone HCl (Desyrel) 50 mg QHS PO 04/03/20 21:00 04/14/20 20:14 Atorvastatin Calcium (Lipitor) 40 mg QHS PO 04/03/20 21:00 04/14/20 20:13 Artificial Tears (Refresh Classic) 1 drop PRN Q15MIN PRN OD DRY EYE 04/03/20 15:45 Donepezil HCl (Aricept) 5 mg HS PO 04/03/20 21:00 04/10/20 17:50 DC 04/09/20 20:25 Fluticasone Propionate (Flonase) 1 spray DAILY NS 04/04/20 09:00 04/14/20 09:03 Fluticasone/ Vilanterol (Breo Ellipta 200-25 Mcg) 1 puff DAILY INH 04/04/20 09:00 04/14/20 09:00 Loperamide HCl (Imodium) 2 mg PRN Q15MIN PRN PO DIARRHEA 04/03/20 15:45 Al Hydroxide/Mg Hydroxide (Mylanta Plus Xs) 30 ml PRN Q2HR PRN PO DYSPEPSIA 04/03/20 15:45 Melatonin (Melatonin) 3 mg QHS PO 04/03/20 21:00 04/04/20 18:46 DC 04/03/20 20:23 Thiamine HCl (Vitamin B-1) 100 mg DAILY PO 04/04/20 09:00 04/14/20 09:05 Sodium Chloride (Saline Mist Nasal) 2 clifford PRN BID PRN NS NASAL CONGESTION 04/03/20 15:30 Acetaminophen (Tylenol) 650 mg PRN Q6HRS PRN PO MILD PAIN / TEMP > 100.3'F 04/03/20 16:30 04/08/20 21:44 Multi-Ingredient Ointment (Analgesic [place]) 1 clifford PRN QID PRN TP MUSCLE PAIN 2/23/21 16:30 04/07/20 01:56 Al Hydroxide/Mg Hydroxide (Mylanta Plus Xs) 15 ml PRN AFTMEALHC PRN PO DYSPEPSIA 04/03/20 16:30 04/04/20 08:38 DC Magnesium Hydroxide (Milk Of Magnesia) 2,400 mg PRN QHS PRN PO CONSTIPATION 04/03/20 16:30 Vitamin D (Vitamin D3) 50,000 unit WEEKLY PO 04/05/20 09:00 04/12/20 08:36 Mirtazapine (Remeron) 7.5 mg QHS PO 04/04/20 21:00 04/10/20 17:50 DC 04/09/20 20:25 Quetiapine Fumarate (SEROquel) 12.5 mg 0900,1300,1700 PO 04/05/20 09:00 04/07/20 18:37 DC 04/07/20 17:05 Olanzapine (ZyPREXA ZYDIS) 2.5 mg PRN Q2HRS PRN PO PSYCHOSIS 04/04/20 18:45 04/14/20 17:07 Potassium Chloride (Klor-Con) 40 meq 1X ONCE PO 04/04/20 21:30 04/04/20 21:32 DC 04/04/20 21:30 Potassium Chloride (Klor-Con) 20 meq DAILYWBKFT PO 04/05/20 08:00 04/14/20 09:04 Oxycodone HCl (Roxicodone) 5 mg PRN Q6HRS PRN PO PAIN 04/07/20 16:30 04/13/20 20:01 Quetiapine Fumarate (SEROquel) 12.5 mg 0900,1700 PO 04/08/20 09:00 04/14/20 17:07 Quetiapine Fumarate (SEROquel) 25 mg DAILYWLUN PO 04/08/20 12:00 04/14/20 12:09 Donepezil HCl (Aricept) 10 mg HS PO 04/10/20 21:00 04/14/20 20:13 Mirtazapine (Remeron) 15 mg QHS PO 04/10/20 21:00 04/14/20 20:14 Sertraline HCl (Zoloft) 25 mg DAILY PO 04/11/20 09:00 04/13/20 21:00 DC 04/13/20 08:08 Sertraline HCl (Zoloft) 50 mg DAILY PO 04/14/20 09:00 04/14/20 09:04 Current Medications Medications (Trade) Dose Ordered Sig/Zohaib Route PRN Reason Start Time Stop Time Status Last Admin Dose Admin Sertraline HCl (Zoloft) 50 mg DAILY PO 04/14/20 09:00 04/14/20 09:04 I have reviewed the current psychotropics carefully including drug interactions. Risk benefit ratio favors no change other than as noted in my dictated progress note. Diagnosis: Problems: (1) Impulse control disorder, unspecified (2) Anxiety disorder, unspecified (3) Dementia, vascular, with depression (4) Dementia, vascular, with delusions (5) Dementia in Alzheimer's disease with depression (6) Dementia in Alzheimer's disease with delusions (7) Dementia of the Alzheimer's type with early onset with behavioral disturbance (8) Major neurocognitive disorder YOLANDA BURGESS MD Apr 15, 2020 07:29
--- NOTE | 2020-04-15 07:52 | PDOC ---
Exam Note: Khanh Note: This note is a late entry for 04/14/2020 covers elements not covered in my initial note. Subjective: The patient was seen individually in the evening of 04/14/2020 with Nathan HINSON, discussed and reviewed the chart. He slept 8-1/4 hours previous night. He is somewhat loud, anxious this morning, compliant with medications, done well after breakfast and also in the evening. Review of Systems: Ambulation impaired in wheelchair. No CV, , pulmonary, eye, ENT system symptoms on review. Mental Status Exam: The patient is oriented to himself. As I met with him he was in a hurry to go to the bathroom for a bowel movement and nursing staff assisted him with this. He was appreciative. Speech is coherent. Abstraction is fair. Computation impaired. Language function intact. Mood and affect somewhat anxious, labile. Laboratory Data: Reviewed. Impression: Major neurocognitive disorder Alzheimer vascular with delusion, depression, behavioral disturbance. Anxiety disorder unspecified. Impulse control disorder unspecified. Plan: No change from initial note. Assessment: Vital Signs/I&O: Vital Signs Date Time Temp Pulse Resp B/P (MAP) Pulse Ox O2 Delivery O2 Flow Rate FiO2 04/15/20 06:21 98.7 50 18 130/64 (86) 92 Room Air I & O 04/14/20 04/14/20 04/15/20 15:00 23:00 07:00 Intake Total 720 ml 480 ml Balance 720 ml 480 ml Current Medications: Meds: Current Medications Medications (Trade) Dose Ordered Sig/Zohaib Route PRN Reason Start Time Stop Time Status Last Admin Dose Admin Amlodipine Besylate (Norvasc) 10 mg DAILY PO 04/04/20 09:00 04/14/20 09:05 Aspirin (Aspirin Chewable) 81 mg DAILY PO 04/04/20 09:00 04/14/20 09:03 Atenolol (Tenormin) 25 mg DAILY PO 04/04/20 09:00 04/14/20 09:05 Haloperidol (Haldol) 2.5 mg PRN Q8HRS PRN PO delusions 04/03/20 15:45 04/04/20 18:46 DC 04/04/20 10:16 Losartan Potassium (Cozaar) 50 mg DAILY PO 04/04/20 09:00 04/14/20 09:05 Memantine (Namenda) 10 mg BID PO 04/03/20 21:00 04/14/20 20:14 Quetiapine Fumarate (SEROquel) 75 mg QHS PO 04/03/20 21:00 04/14/20 20:14 Tamsulosin HCl (Flomax) 0.8 mg DAILY PO 04/04/20 09:00 04/14/20 09:04 Trazodone HCl (Desyrel) 50 mg QHS PO 04/03/20 21:00 04/14/20 20:14 Atorvastatin Calcium (Lipitor) 40 mg QHS PO 04/03/20 21:00 04/14/20 20:13 Artificial Tears (Refresh Classic) 1 drop PRN Q15MIN PRN OD DRY EYE 04/03/20 15:45 Donepezil HCl (Aricept) 5 mg HS PO 04/03/20 21:00 04/10/20 17:50 DC 04/09/20 20:25 Fluticasone Propionate (Flonase) 1 spray DAILY NS 04/04/20 09:00 04/14/20 09:03 Fluticasone/ Vilanterol (Breo Ellipta 200-25 Mcg) 1 puff DAILY INH 04/04/20 09:00 04/14/20 09:00 Loperamide HCl (Imodium) 2 mg PRN Q15MIN PRN PO DIARRHEA 04/03/20 15:45 Al Hydroxide/Mg Hydroxide (Mylanta Plus Xs) 30 ml PRN Q2HR PRN PO DYSPEPSIA 04/03/20 15:45 Melatonin (Melatonin) 3 mg QHS PO 04/03/20 21:00 04/04/20 18:46 DC 04/03/20 20:23 Thiamine HCl (Vitamin B-1) 100 mg DAILY PO 04/04/20 09:00 04/14/20 09:05 Sodium Chloride (Saline Mist Nasal) 2 clifford PRN BID PRN NS NASAL CONGESTION 04/03/20 15:30 Acetaminophen (Tylenol) 650 mg PRN Q6HRS PRN PO MILD PAIN / TEMP > 100.3'F 04/03/20 16:30 04/08/20 21:44 Multi-Ingredient Ointment (Analgesic [place]) 1 clifford PRN QID PRN TP MUSCLE PAIN 04/03/20 16:30 04/07/20 01:56 Al Hydroxide/Mg Hydroxide (Mylanta Plus Xs) 15 ml PRN AFTMEALHC PRN PO DYSPEPSIA 04/03/20 16:30 04/04/20 08:38 DC Magnesium Hydroxide (Milk Of Magnesia) 2,400 mg PRN QHS PRN PO CONSTIPATION 04/03/20 16:30 Vitamin D (Vitamin D3) 50,000 unit WEEKLY PO 04/05/20 09:00 04/12/20 08:36 Mirtazapine (Remeron) 7.5 mg QHS PO 04/04/20 21:00 04/10/20 17:50 DC 04/09/20 20:25 Quetiapine Fumarate (SEROquel) 12.5 mg 0900,1300,1700 PO 04/05/20 09:00 04/07/20 18:37 DC 04/07/20 17:05 Olanzapine (ZyPREXA ZYDIS) 2.5 mg PRN Q2HRS PRN PO PSYCHOSIS 04/04/20 18:45 04/14/20 17:07 Potassium Chloride (Klor-Con) 40 meq 1X ONCE PO 04/04/20 21:30 04/04/20 21:32 DC 04/04/20 21:30 Potassium Chloride (Klor-Con) 20 meq DAILYWBKFT PO 04/05/20 08:00 04/14/20 09:04 Oxycodone HCl (Roxicodone) 5 mg PRN Q6HRS PRN PO PAIN 04/07/20 16:30 04/13/20 20:01 Quetiapine Fumarate (SEROquel) 12.5 mg 0900,1700 PO 04/08/20 09:00 04/14/20 17:07 Quetiapine Fumarate (SEROquel) 25 mg DAILYWLUN PO 04/08/20 12:00 04/14/20 12:09 Donepezil HCl (Aricept) 10 mg HS PO 04/10/20 21:00 04/14/20 20:13 Mirtazapine (Remeron) 15 mg QHS PO 04/10/20 21:00 04/14/20 20:14 Sertraline HCl (Zoloft) 25 mg DAILY PO 04/11/20 09:00 04/13/20 21:00 DC 04/13/20 08:08 Sertraline HCl (Zoloft) 50 mg DAILY PO 04/14/20 09:00 04/14/20 09:04 Current Medications Medications (Trade) Dose Ordered Sig/Zohaib Route PRN Reason Start Time Stop Time Status Last Admin Dose Admin Sertraline HCl (Zoloft) 50 mg DAILY PO 04/14/20 09:00 04/14/20 09:04 I have reviewed the current psychotropics carefully including drug interactions. Risk benefit ratio favors no change other than as noted in my dictated progress note. Diagnosis: Problems: (1) Impulse control disorder, unspecified (2) Anxiety disorder, unspecified (3) Dementia, vascular, with depression (4) Dementia, vascular, with delusions (5) Dementia in Alzheimer's disease with depression (6) Dementia in Alzheimer's disease with delusions (7) Dementia of the Alzheimer's type with early onset with behavioral disturbance (8) Major neurocognitive disorder YOLANDA BURGESS MD Apr 15, 2020 07:52
[2020-04-15] MEDS: TAMSULOSIN 0.4 MG CAP.ER.24H. PO SCH (08:08)
[2020-04-15] MEDS: ASPIRIN CHEWABLE 81 MG TABLET. PO SCH (08:08)
[2020-04-15] MEDS: QUEtiapine 25 MG TABLET. PO SCH ×4 (08:09→20:19)
[2020-04-15] MEDS: POTASSIUM CHLORIDE 20 MEQ TABLET.ER. PO SCH (08:09)
[2020-04-15] MEDS: MEMANTINE 10 MG TABLET. PO SCH ×2 (08:09→20:19)
[2020-04-15] MEDS: ATENOLOL 25 MG TABLET PO SCH (08:09)
[2020-04-15] MEDS: THIAMINE 100 MG TABLET. PO SCH (08:09)
[2020-04-15] MEDS: SERTRALINE 25 MG TABLET. PO SCH (08:09)
[2020-04-15] MEDS: LOSARTAN 50 MG TABLET. PO SCH (08:09)
[2020-04-15] MEDS: FLUTICASONE/VILANTEROL 200/25 INHALER. INH SCH (08:10)
[2020-04-15] MEDS: FLUTICASONE 50MCG/NASAL SPRAY 16GM BOTTLE. NS SCH (08:10)
[2020-04-15] MEDS: amLODIPine BESYLATE 10 MG TABLET PO SCH (08:10)
--- NOTE | 2020-04-15 09:55 | NUR ---
Patient is calm and cooperative. Patient requesting information on how he can be discharged. patient educated on discharge process.
[2020-04-15 16:02] VITALS: BP 95/58
[2020-04-15] MEDS: DONEPEZIL HCL 10 MG TABLET PO SCH (20:18)
[2020-04-15] MEDS: traZODone 50 MG TABLET. PO SCH (20:19)
[2020-04-15] MEDS: ATORVASTATIN CALCIUM 20 MG TABLET PO SCH (20:19)
[2020-04-15] MEDS: MIRTAZAPINE 15 MG TABLET PO SCH (20:19)
--- NOTE | 2020-04-15 20:54 | PDOC ---
Exam Note: Khanh Note: Please also refer to the separate dictated note~for this date of service dictated separately.~Patient seen individually. Discussed the patient with Nursing staff reviewed the chart.~Reviewed interim history and current functioning. Reviewed vital signs,~Labs/ Radiology~and current medications noted below. Continue current treatment with the changes noted in the dictated addendum note Assessment: Vital Signs/I&O: Vital Signs Date Time Temp Pulse Resp B/P (MAP) Pulse Ox O2 Delivery O2 Flow Rate FiO2 04/15/20 16:02 97.4 58 17 95/58 (70) 97 Room Air I & O 04/14/20 04/14/20 04/15/20 14:59 22:59 06:59 Intake Total 720 ml 480 ml Balance 720 ml 480 ml Current Medications: Meds: Current Medications Medications (Trade) Dose Ordered Sig/Zohaib Route PRN Reason Start Time Stop Time Status Last Admin Dose Admin Amlodipine Besylate (Norvasc) 10 mg DAILY PO 04/04/20 09:00 04/15/20 08:10 Aspirin (Aspirin Chewable) 81 mg DAILY PO 04/04/20 09:00 04/15/20 08:08 Atenolol (Tenormin) 25 mg DAILY PO 04/04/20 09:00 04/15/20 08:09 Haloperidol (Haldol) 2.5 mg PRN Q8HRS PRN PO delusions 04/03/20 15:45 04/04/20 18:46 DC 04/04/20 10:16 Losartan Potassium (Cozaar) 50 mg DAILY PO 04/04/20 09:00 04/15/20 08:09 Memantine (Namenda) 10 mg BID PO 04/03/20 21:00 04/15/20 20:19 Quetiapine Fumarate (SEROquel) 75 mg QHS PO 04/03/20 21:00 04/15/20 20:19 Tamsulosin HCl (Flomax) 0.8 mg DAILY PO 04/04/20 09:00 04/15/20 08:08 Trazodone HCl (Desyrel) 50 mg QHS PO 04/03/20 21:00 04/15/20 20:19 Atorvastatin Calcium (Lipitor) 40 mg QHS PO 04/03/20 21:00 04/15/20 20:19 Artificial Tears (Refresh Classic) 1 drop PRN Q15MIN PRN OD DRY EYE 04/03/20 15:45 Donepezil HCl (Aricept) 5 mg HS PO 04/03/20 21:00 04/10/20 17:50 DC 04/09/20 20:25 Fluticasone Propionate (Flonase) 1 spray DAILY NS 04/04/20 09:00 04/15/20 08:10 Fluticasone/ Vilanterol (Breo Ellipta 200-25 Mcg) 1 puff DAILY INH 04/04/20 09:00 04/15/20 08:10 Loperamide HCl (Imodium) 2 mg PRN Q15MIN PRN PO DIARRHEA 04/03/20 15:45 Al Hydroxide/Mg Hydroxide (Mylanta Plus Xs) 30 ml PRN Q2HR PRN PO DYSPEPSIA 04/03/20 15:45 Melatonin (Melatonin) 3 mg QHS PO 04/03/20 21:00 04/04/20 18:46 DC 04/03/20 20:23 Thiamine HCl (Vitamin B-1) 100 mg DAILY PO 04/04/20 09:00 04/15/20 08:09 Sodium Chloride (Saline Mist Nasal) 2 clifford PRN BID PRN NS NASAL CONGESTION 04/03/20 15:30 Acetaminophen (Tylenol) 650 mg PRN Q6HRS PRN PO MILD PAIN / TEMP > 100.3'F 04/03/20 16:30 04/08/20 21:44 Multi-Ingredient Ointment (Analgesic [place]) 1 clifford PRN QID PRN TP MUSCLE PAIN 04/03/20 16:30 04/07/20 01:56 Al Hydroxide/Mg Hydroxide (Mylanta Plus Xs) 15 ml PRN AFTMEALHC PRN PO DYSPEPSIA 04/03/20 16:30 04/04/20 08:38 DC Magnesium Hydroxide (Milk Of Magnesia) 2,400 mg PRN QHS PRN PO CONSTIPATION 04/03/20 16:30 Vitamin D (Vitamin D3) 50,000 unit WEEKLY PO 04/05/20 09:00 04/12/20 08:36 Mirtazapine (Remeron) 7.5 mg QHS PO 04/04/20 21:00 04/10/20 17:50 DC 04/09/20 20:25 Quetiapine Fumarate (SEROquel) 12.5 mg 0900,1300,1700 PO 04/05/20 09:00 04/07/20 18:37 DC 04/07/20 17:05 Olanzapine (ZyPREXA ZYDIS) 2.5 mg PRN Q2HRS PRN PO PSYCHOSIS 04/04/20 18:45 04/14/20 17:07 Potassium Chloride (Klor-Con) 40 meq 1X ONCE PO 04/04/20 21:30 04/04/20 21:32 DC 04/04/20 21:30 Potassium Chloride (Klor-Con) 20 meq DAILYWBKFT PO 04/05/20 08:00 04/15/20 08:09 Oxycodone HCl (Roxicodone) 5 mg PRN Q6HRS PRN PO PAIN 04/07/20 16:30 04/13/20 20:01 Quetiapine Fumarate (SEROquel) 12.5 mg 0900,1700 PO 04/08/20 09:00 04/15/20 16:48 Quetiapine Fumarate (SEROquel) 25 mg DAILYWLUN PO 04/08/20 12:00 04/15/20 11:40 Donepezil HCl (Aricept) 10 mg HS PO 04/10/20 21:00 04/15/20 20:18 Mirtazapine (Remeron) 15 mg QHS PO 04/10/20 21:00 04/15/20 20:19 Sertraline HCl (Zoloft) 25 mg DAILY PO 04/11/20 09:00 04/13/20 21:00 DC 04/13/20 08:08 Sertraline HCl (Zoloft) 50 mg DAILY PO 04/14/20 09:00 04/15/20 08:09 I have reviewed the current psychotropics carefully including drug interactions. Risk benefit ratio favors no change other than as noted in my dictated progress note. Diagnosis: Problems: (1) Impulse control disorder, unspecified (2) Anxiety disorder, unspecified (3) Dementia, vascular, with depression (4) Dementia, vascular, with delusions (5) Dementia in Alzheimer's disease with depression (6) Dementia in Alzheimer's disease with delusions (7) Dementia of the Alzheimer's type with early onset with behavioral disturbance (8) Major neurocognitive disorder YOLANDA BURGESS MD Apr 15, 2020 20:54
--- NOTE | 2020-04-15 21:56 | NUR ---
Pt calm and pleasant in the dayroom this evening. Compliant with whole medications. No agitation or aggression.
[2020-04-15] MEDS: oxyCODONE IR 5 MG TABLET PO PRN (23:46)
--- NOTE | 2020-04-16 00:10 | NUR ---
Pt awake and taken to the restroom. After urinating, pt became very agitated stating he needed to get up and was not going back to bed. Pt yelling and swinging at staff. Pt taken to the [facility] where he continued to yell. PRNs administered sublingually. Pt eventually calmed down and was taken back to bed where he has been sleeping the rest of the evening.
[2020-04-16 05:54] LABS: BASO % 1 % (0-3); EOS # 0.1 x10^3/uL (0.0-0.7); EOS % 3 % (0-3); HEMATOCRIT 34.7 % (39.0-53.0); HEMOGLOBIN 11.4 g/dL (13.0-17.5); LYMPH # 1.2 x10^3/uL (1.0-4.8); LYMPH % 26 % (24-48); MEAN CORPUSCULAR HEMOGLOBIN 30 pg (25-35); MEAN CORPUSCULAR HGB CONC 33 g/dL (31-37); MEAN CORPUSCULAR VOLUME 92 fL (79-100); MONO # 0.3 x10^3/uL (0.0-1.1); MONO % 7 % (0-9); NEUT # 2.9 x10^3uL (1.8-7.7); NEUT % 64 % (31-73); PLATELET COUNT 187 x10^3/uL (140-400); RED BLOOD COUNT 3.75 x10^6/uL (4.30-5.70); RED CELL DISTRIBUTION WIDTH 14.2 % (11.5-14.5); WHITE BLOOD COUNT 4.6 x10^3/uL (4.0-11.0)
[2020-04-16 06:09] LABS: ALBUMIN 2.8 g/dL (3.4-5.0); CALCIUM 8.4 mg/dL (8.5-10.1); GFR 71.5; TOTAL BILIRUBIN 0.7 mg/dL (0.2-1.0); TOTAL PROTEIN 5.7 g/dL (6.4-8.2)
[2020-04-16 06:14] VITALS: BP 155/68
--- NOTE | 2020-04-16 08:16 | PDOC ---
Exam Note: Khanh Note: This note is a late entry for 04/15/2020 covers elements not covered in my initial note. Subjective: The patient was seen individually in the evening of 04/15/2020 with Nathan HINSON, discussed and reviewed the chart. He slept 6 hours previous night. He has been calmer, less anxious, somewhat obsessive about discharge. I addressed this with her. He had had a chocolate ice-cream and there was some of it smudged on his face but he had a sense of humor about this as I had addressed this. Review of Systems: Ambulation impaired in wheelchair. No CV, , pulmonary, eye, ENT system symptoms on review. Mental Status Exam: The patient is oriented to himself. Speech is coherent. Abstraction is fair. Computation impaired. Language function intact. Mood and affect somewhat anxious, labile. Laboratory Data: Reviewed. Impression: Major neurocognitive disorder Alzheimer vascular with delusion, depression, behavioral disturbance. Anxiety disorder unspecified. Impulse control disorder unspecified. Plan: No change from initial note. Assessment: Vital Signs/I&O: Vital Signs Date Time Temp Pulse Resp B/P (MAP) Pulse Ox O2 Delivery O2 Flow Rate FiO2 04/16/20 06:14 99.0 50 16 155/68 (97) 94 Room Air I & O 04/15/20 04/15/20 04/16/20 14:59 22:59 06:59 Intake Total 960 ml 600 ml Balance 960 ml 600 ml Labs: Laboratory Tests Test 04/16/20 05:40 White Blood Count 4.6 x10^3/uL (4.0-11.0) Red Blood Count 3.75 x10^6/uL (4.30-5.70) L Hemoglobin 11.4 g/dL (13.0-17.5) L Hematocrit 34.7 % (39.0-53.0) L Mean Corpuscular Volume 92 fL (79-100) Mean Corpuscular Hemoglobin 30 pg (25-35) Mean Corpuscular Hemoglobin Concent 33 g/dL (31-37) Red Cell Distribution Width 14.2 % (11.5-14.5) Platelet Count 187 x10^3/uL (140-400) Neutrophils (%) (Auto) 64 % (31-73) Lymphocytes (%) (Auto) 26 % (24-48) Monocytes (%) (Auto) 7 % (0-9) Eosinophils (%) (Auto) 3 % (0-3) Basophils (%) (Auto) 1 % (0-3) Neutrophils # (Auto) 2.9 x10^3uL (1.8-7.7) Lymphocytes # (Auto) 1.2 x10^3/uL (1.0-4.8) Monocytes # (Auto) 0.3 x10^3/uL (0.0-1.1) Eosinophils # (Auto) 0.1 x10^3/uL (0.0-0.7) Basophils # (Auto) 0.0 x10^3/uL (0.0-0.2) Sodium Level 146 mmol/L (136-145) H Potassium Level 4.0 mmol/L (3.5-5.1) Chloride Level 109 mmol/L (98-107) H Carbon Dioxide Level 31 mmol/L (21-32) Anion Gap 6 (6-14) Blood Urea Nitrogen 18 mg/dL (8-26) Creatinine 1.0 mg/dL (0.7-1.3) Estimated GFR (Cockcroft-Gault) 71.5 BUN/Creatinine Ratio 18 (6-20) Glucose Level 85 mg/dL (70-99) Calcium Level 8.4 mg/dL (8.5-10.1) L Total Bilirubin 0.7 mg/dL (0.2-1.0) Aspartate Amino Transferase (AST) 17 U/L (15-37) Alanine Aminotransferase (ALT) 30 U/L (16-63) Alkaline Phosphatase 74 U/L (46-116) Total Protein 5.7 g/dL (6.4-8.2) L Albumin 2.8 g/dL (3.4-5.0) L Albumin/Globulin Ratio 1.0 (1.0-1.7) Current Medications: Meds: Laboratory Tests Test 04/16/20 05:40 White Blood Count 4.6 x10^3/uL Red Blood Count 3.75 x10^6/uL Hemoglobin 11.4 g/dL Hematocrit 34.7 % Mean Corpuscular Volume 92 fL Mean Corpuscular Hemoglobin 30 pg Mean Corpuscular Hemoglobin Concent 33 g/dL Red Cell Distribution Width 14.2 % Platelet Count 187 x10^3/uL Neutrophils (%) (Auto) 64 % Lymphocytes (%) (Auto) 26 % Monocytes (%) (Auto) 7 % Eosinophils (%) (Auto) 3 % Basophils (%) (Auto) 1 % Neutrophils # (Auto) 2.9 x10^3uL Lymphocytes # (Auto) 1.2 x10^3/uL Monocytes # (Auto) 0.3 x10^3/uL Eosinophils # (Auto) 0.1 x10^3/uL Basophils # (Auto) 0.0 x10^3/uL Sodium Level 146 mmol/L Potassium Level 4.0 mmol/L Chloride Level 109 mmol/L Carbon Dioxide Level 31 mmol/L Anion Gap 6 Blood Urea Nitrogen 18 mg/dL Creatinine 1.0 mg/dL Estimated GFR (Cockcroft-Gault) 71.5 BUN/Creatinine Ratio 18 Glucose Level 85 mg/dL Calcium Level 8.4 mg/dL Total Bilirubin 0.7 mg/dL Aspartate Amino Transf (AST/SGOT) 17 U/L Alanine Aminotransferase (ALT/SGPT) 30 U/L Alkaline Phosphatase 74 U/L Total Protein 5.7 g/dL Albumin 2.8 g/dL Albumin/Globulin Ratio 1.0 Current Medications Medications (Trade) Dose Ordered Sig/Zohaib Route PRN Reason Start Time Stop Time Status Last Admin Dose Admin Amlodipine Besylate (Norvasc) 10 mg DAILY PO 04/04/20 09:00 04/15/20 08:10 Aspirin (Aspirin Chewable) 81 mg DAILY PO 04/04/20 09:00 04/15/20 08:08 Atenolol (Tenormin) 25 mg DAILY PO 04/04/20 09:00 04/15/20 08:09 Haloperidol (Haldol) 2.5 mg PRN Q8HRS PRN PO delusions 04/03/20 15:45 04/04/20 18:46 DC 04/04/20 10:16 Losartan Potassium (Cozaar) 50 mg DAILY PO 04/04/20 09:00 04/15/20 08:09 Memantine (Namenda) 10 mg BID PO 04/03/20 21:00 04/15/20 20:19 Quetiapine Fumarate (SEROquel) 75 mg QHS PO 04/03/20 21:00 04/15/20 20:19 Tamsulosin HCl (Flomax) 0.8 mg DAILY PO 04/04/20 09:00 04/15/20 08:08 Trazodone HCl (Desyrel) 50 mg QHS PO 04/03/20 21:00 04/15/20 20:19 Atorvastatin Calcium (Lipitor) 40 mg QHS PO 04/03/20 21:00 04/15/20 20:19 Artificial Tears (Refresh Classic) 1 drop PRN Q15MIN PRN OD DRY EYE 04/03/20 15:45 Donepezil HCl (Aricept) 5 mg HS PO 04/03/20 21:00 04/10/20 17:50 DC 04/09/20 20:25 Fluticasone Propionate (Flonase) 1 spray DAILY NS 04/04/20 09:00 04/15/20 08:10 Fluticasone/ Vilanterol (Breo Ellipta 200-25 Mcg) 1 puff DAILY INH 04/04/20 09:00 04/15/20 08:10 Loperamide HCl (Imodium) 2 mg PRN Q15MIN PRN PO DIARRHEA 04/03/20 15:45 Al Hydroxide/Mg Hydroxide (Mylanta Plus Xs) 30 ml PRN Q2HR PRN PO DYSPEPSIA 04/03/20 15:45 Melatonin (Melatonin) 3 mg QHS PO 04/03/20 21:00 04/04/20 18:46 DC 04/03/20 20:23 Thiamine HCl (Vitamin B-1) 100 mg DAILY PO 04/04/20 09:00 04/15/20 08:09 Sodium Chloride (Saline Mist Nasal) 2 clifford PRN BID PRN NS NASAL CONGESTION 04/03/20 15:30 Acetaminophen (Tylenol) 650 mg PRN Q6HRS PRN PO MILD PAIN / TEMP > 100.3'F 04/03/20 16:30 04/08/20 21:44 Multi-Ingredient Ointment (Analgesic [place]) 1 clifford PRN QID PRN TP MUSCLE PAIN 04/03/20 16:30 04/07/20 01:56 Al Hydroxide/Mg Hydroxide (Mylanta Plus Xs) 15 ml PRN AFTMEALHC PRN PO DYSPEPSIA 04/03/20 16:30 04/04/20 08:38 DC Magnesium Hydroxide (Milk Of Magnesia) 2,400 mg PRN QHS PRN PO CONSTIPATION 04/03/20 16:30 Vitamin D (Vitamin D3) 50,000 unit WEEKLY PO 04/05/20 09:00 04/12/20 08:36 Mirtazapine (Remeron) 7.5 mg QHS PO 04/04/20 21:00 04/10/20 17:50 DC 04/09/20 20:25 Quetiapine Fumarate (SEROquel) 12.5 mg 0900,1300,1700 PO 04/05/20 09:00 04/07/20 18:37 DC 04/07/20 17:05 Olanzapine (ZyPREXA ZYDIS) 2.5 mg PRN Q2HRS PRN PO PSYCHOSIS 04/04/20 18:45 04/15/20 23:46 Potassium Chloride (Klor-Con) 40 meq 1X ONCE PO 04/04/20 21:30 04/04/20 21:32 DC 04/04/20 21:30 Potassium Chloride (Klor-Con) 20 meq DAILYWBKFT PO 04/05/20 08:00 04/15/20 08:09 Oxycodone HCl (Roxicodone) 5 mg PRN Q6HRS PRN PO PAIN 04/07/20 16:30 04/15/20 23:46 Quetiapine Fumarate (SEROquel) 12.5 mg 0900,1700 PO 04/08/20 09:00 04/15/20 16:48 Quetiapine Fumarate (SEROquel) 25 mg DAILYWLUN PO 04/08/20 12:00 04/15/20 11:40 Donepezil HCl (Aricept) 10 mg HS PO 04/10/20 21:00 04/15/20 20:18 Mirtazapine (Remeron) 15 mg QHS PO 04/10/20 21:00 04/15/20 20:19 Sertraline HCl (Zoloft) 25 mg DAILY PO 04/11/20 09:00 04/13/20 21:00 DC 04/13/20 08:08 Sertraline HCl (Zoloft) 50 mg DAILY PO 04/14/20 09:00 04/15/20 08:09 I have reviewed the current psychotropics carefully including drug interactions. Risk benefit ratio favors no change other than as noted in my dictated progress note. Diagnosis: Problems: (1) Impulse control disorder, unspecified (2) Anxiety disorder, unspecified (3) Dementia, vascular, with depression (4) Dementia, vascular, with delusions (5) Dementia in Alzheimer's disease with depression (6) Dementia in Alzheimer's disease with delusions (7) Dementia of the Alzheimer's type with early onset with behavioral disturbance (8) Major neurocognitive disorder YOLANDA BURGESS MD Apr 16, 2020 08:16
[2020-04-16] MEDS: ASPIRIN CHEWABLE 81 MG TABLET. PO SCH (09:12)
[2020-04-16] MEDS: QUEtiapine 25 MG TABLET. PO SCH ×4 (09:13→20:13)
[2020-04-16] MEDS: TAMSULOSIN 0.4 MG CAP.ER.24H. PO SCH (09:13)
[2020-04-16] MEDS: MEMANTINE 10 MG TABLET. PO SCH ×2 (09:13→20:13)
[2020-04-16] MEDS: ATENOLOL 25 MG TABLET PO SCH (09:13)
[2020-04-16] MEDS: SERTRALINE 25 MG TABLET. PO SCH (09:13)
[2020-04-16] MEDS: THIAMINE 100 MG TABLET. PO SCH (09:13)
[2020-04-16] MEDS: LOSARTAN 50 MG TABLET. PO SCH (09:14)
[2020-04-16] MEDS: FLUTICASONE 50MCG/NASAL SPRAY 16GM BOTTLE. NS SCH ×2 (09:14→09:20)
[2020-04-16] MEDS: amLODIPine BESYLATE 10 MG TABLET PO SCH (09:14)
[2020-04-16] MEDS: POTASSIUM CHLORIDE 20 MEQ TABLET.ER. PO SCH (09:14)
[2020-04-16] MEDS: FLUTICASONE/VILANTEROL 200/25 INHALER. INH SCH ×2 (09:15→09:20)
[2020-04-16 15:59] VITALS: BP 142/79
--- NOTE | 2020-04-16 18:30 | NUR ---
Patient has been calm, compliant, and pleasantly confused. He spent most of the shift wandering in the hallways. Will continue to monitor and report to oncoming shift.
[2020-04-16] MEDS: traZODone 50 MG TABLET. PO SCH (20:13)
[2020-04-16] MEDS: MIRTAZAPINE 15 MG TABLET PO SCH (20:13)
[2020-04-16] MEDS: DONEPEZIL HCL 10 MG TABLET PO SCH (20:13)
[2020-04-16] MEDS: ATORVASTATIN CALCIUM 20 MG TABLET PO SCH (20:14)
--- NOTE | 2020-04-16 21:14 | PDOC ---
Exam Note: Khanh Note: Please also refer to the separate dictated note~for this date of service dictated separately.~Patient seen individually. Discussed the patient with Nursing staff reviewed the chart.~Reviewed interim history and current functioning. Reviewed vital signs,~Labs/ Radiology~and current medications noted below. Continue current treatment with the changes noted in the dictated addendum note Assessment: Vital Signs/I&O: Vital Signs Date Time Temp Pulse Resp B/P (MAP) Pulse Ox O2 Delivery O2 Flow Rate FiO2 04/16/20 15:59 98.5 65 18 142/79 (100) 98 04/16/20 06:14 Room Air I & O 04/15/20 04/15/20 04/16/20 14:59 22:59 06:59 Intake Total 960 ml 600 ml Balance 960 ml 600 ml Labs: Laboratory Tests Test 04/16/20 05:40 04/16/20 06:00 White Blood Count 4.6 x10^3/uL (4.0-11.0) Red Blood Count 3.75 x10^6/uL (4.30-5.70) L Hemoglobin 11.4 g/dL (13.0-17.5) L Hematocrit 34.7 % (39.0-53.0) L Mean Corpuscular Volume 92 fL (79-100) Mean Corpuscular Hemoglobin 30 pg (25-35) Mean Corpuscular Hemoglobin Concent 33 g/dL (31-37) Red Cell Distribution Width 14.2 % (11.5-14.5) Platelet Count 187 x10^3/uL (140-400) Neutrophils (%) (Auto) 64 % (31-73) Lymphocytes (%) (Auto) 26 % (24-48) Monocytes (%) (Auto) 7 % (0-9) Eosinophils (%) (Auto) 3 % (0-3) Basophils (%) (Auto) 1 % (0-3) Neutrophils # (Auto) 2.9 x10^3uL (1.8-7.7) Lymphocytes # (Auto) 1.2 x10^3/uL (1.0-4.8) Monocytes # (Auto) 0.3 x10^3/uL (0.0-1.1) Eosinophils # (Auto) 0.1 x10^3/uL (0.0-0.7) Basophils # (Auto) 0.0 x10^3/uL (0.0-0.2) Sodium Level 146 mmol/L (136-145) H Potassium Level 4.0 mmol/L (3.5-5.1) Chloride Level 109 mmol/L (98-107) H Carbon Dioxide Level 31 mmol/L (21-32) Anion Gap 6 (6-14) Blood Urea Nitrogen 18 mg/dL (8-26) Creatinine 1.0 mg/dL (0.7-1.3) Estimated GFR (Cockcroft-Gault) 71.5 BUN/Creatinine Ratio 18 (6-20) Glucose Level 85 mg/dL (70-99) Calcium Level 8.4 mg/dL (8.5-10.1) L Total Bilirubin 0.7 mg/dL (0.2-1.0) Aspartate Amino Transferase (AST) 17 U/L (15-37) Alanine Aminotransferase (ALT) 30 U/L (16-63) Alkaline Phosphatase 74 U/L (46-116) Total Protein 5.7 g/dL (6.4-8.2) L Albumin 2.8 g/dL (3.4-5.0) L Albumin/Globulin Ratio 1.0 (1.0-1.7) Coronavirus (PCR) Not detected (Not Detected) Current Medications: Meds: Laboratory Tests Test 04/16/20 05:40 04/16/20 06:00 White Blood Count 4.6 x10^3/uL Red Blood Count 3.75 x10^6/uL Hemoglobin 11.4 g/dL Hematocrit 34.7 % Mean Corpuscular Volume 92 fL Mean Corpuscular Hemoglobin 30 pg Mean Corpuscular Hemoglobin Concent 33 g/dL Red Cell Distribution Width 14.2 % Platelet Count 187 x10^3/uL Neutrophils (%) (Auto) 64 % Lymphocytes (%) (Auto) 26 % Monocytes (%) (Auto) 7 % Eosinophils (%) (Auto) 3 % Basophils (%) (Auto) 1 % Neutrophils # (Auto) 2.9 x10^3uL Lymphocytes # (Auto) 1.2 x10^3/uL Monocytes # (Auto) 0.3 x10^3/uL Eosinophils # (Auto) 0.1 x10^3/uL Basophils # (Auto) 0.0 x10^3/uL Sodium Level 146 mmol/L Potassium Level 4.0 mmol/L Chloride Level 109 mmol/L Carbon Dioxide Level 31 mmol/L Anion Gap 6 Blood Urea Nitrogen 18 mg/dL Creatinine 1.0 mg/dL Estimated GFR (Cockcroft-Gault) 71.5 BUN/Creatinine Ratio 18 Glucose Level 85 mg/dL Calcium Level 8.4 mg/dL Total Bilirubin 0.7 mg/dL Aspartate Amino Transf (AST/SGOT) 17 U/L Alanine Aminotransferase (ALT/SGPT) 30 U/L Alkaline Phosphatase 74 U/L Total Protein 5.7 g/dL Albumin 2.8 g/dL Albumin/Globulin Ratio 1.0 Coronavirus (PCR) Not detected Current Medications Medications (Trade) Dose Ordered Sig/Zohaib Route PRN Reason Start Time Stop Time Status Last Admin Dose Admin Amlodipine Besylate (Norvasc) 10 mg DAILY PO 04/04/20 09:00 04/16/20 09:14 Aspirin (Aspirin Chewable) 81 mg DAILY PO 04/04/20 09:00 04/16/20 09:12 Atenolol (Tenormin) 25 mg DAILY PO 04/04/20 09:00 04/16/20 09:13 Haloperidol (Haldol) 2.5 mg PRN Q8HRS PRN PO delusions 04/03/20 15:45 04/04/20 18:46 DC 04/04/20 10:16 Losartan Potassium (Cozaar) 50 mg DAILY PO 04/04/20 09:00 04/16/20 09:14 Memantine (Namenda) 10 mg BID PO 04/03/20 21:00 04/16/20 20:13 Quetiapine Fumarate (SEROquel) 75 mg QHS PO 04/03/20 21:00 04/16/20 20:13 Tamsulosin HCl (Flomax) 0.8 mg DAILY PO 04/04/20 09:00 04/16/20 09:13 Trazodone HCl (Desyrel) 50 mg QHS PO 04/03/20 21:00 04/16/20 20:13 Atorvastatin Calcium (Lipitor) 40 mg QHS PO 04/03/20 21:00 04/16/20 20:14 Artificial Tears (Refresh Classic) 1 drop PRN Q15MIN PRN OD DRY EYE 04/03/20 15:45 Donepezil HCl (Aricept) 5 mg HS PO 04/03/20 21:00 04/10/20 17:50 DC 04/09/20 20:25 Fluticasone Propionate (Flonase) 1 spray DAILY NS 04/04/20 09:00 04/15/20 08:10 Fluticasone/ Vilanterol (Breo Ellipta 200-25 Mcg) 1 puff DAILY INH 04/04/20 09:00 04/15/20 08:10 Loperamide HCl (Imodium) 2 mg PRN Q15MIN PRN PO DIARRHEA 04/03/20 15:45 Al Hydroxide/Mg Hydroxide (Mylanta Plus Xs) 30 ml PRN Q2HR PRN PO DYSPEPSIA 04/03/20 15:45 Melatonin (Melatonin) 3 mg QHS PO 04/03/20 21:00 04/04/20 18:46 DC 04/03/20 20:23 Thiamine HCl (Vitamin B-1) 100 mg DAILY PO 04/04/20 09:00 04/16/20 09:13 Sodium Chloride (Saline Mist Nasal) 2 clifford PRN BID PRN NS NASAL CONGESTION 04/03/20 15:30 Acetaminophen (Tylenol) 650 mg PRN Q6HRS PRN PO MILD PAIN / TEMP > 100.3'F 04/03/20 16:30 04/08/20 21:44 Multi-Ingredient Ointment (Analgesic [place]) 1 clifford PRN QID PRN TP MUSCLE PAIN 04/03/20 16:30 04/07/20 01:56 Al Hydroxide/Mg Hydroxide (Mylanta Plus Xs) 15 ml PRN AFTMEALHC PRN PO DYSPEPSIA 04/03/20 16:30 04/04/20 08:38 DC Magnesium Hydroxide (Milk Of Magnesia) 2,400 mg PRN QHS PRN PO CONSTIPATION 04/03/20 16:30 Vitamin D (Vitamin D3) 50,000 unit WEEKLY PO 04/05/20 09:00 04/12/20 08:36 Mirtazapine (Remeron) 7.5 mg QHS PO 04/04/20 21:00 04/10/20 17:50 DC 04/09/20 20:25 Quetiapine Fumarate (SEROquel) 12.5 mg 0900,1300,1700 PO 04/05/20 09:00 04/07/20 18:37 DC 04/07/20 17:05 Olanzapine (ZyPREXA ZYDIS) 2.5 mg PRN Q2HRS PRN PO PSYCHOSIS 04/04/20 18:45 04/15/20 23:46 Potassium Chloride (Klor-Con) 40 meq 1X ONCE PO 04/04/20 21:30 04/04/20 21:32 DC 04/04/20 21:30 Potassium Chloride (Klor-Con) 20 meq DAILYWBKFT PO 04/05/20 08:00 04/16/20 09:14 Oxycodone HCl (Roxicodone) 5 mg PRN Q6HRS PRN PO PAIN 04/07/20 16:30 04/15/20 23:46 Quetiapine Fumarate (SEROquel) 12.5 mg 0900,1700 PO 04/08/20 09:00 04/16/20 16:52 Quetiapine Fumarate (SEROquel) 25 mg DAILYWLUN PO 04/08/20 12:00 04/16/20 12:14 Donepezil HCl (Aricept) 10 mg HS PO 04/10/20 21:00 04/16/20 20:13 Mirtazapine (Remeron) 15 mg QHS PO 04/10/20 21:00 04/16/20 20:13 Sertraline HCl (Zoloft) 25 mg DAILY PO 04/11/20 09:00 04/13/20 21:00 DC 04/13/20 08:08 Sertraline HCl (Zoloft) 50 mg DAILY PO 04/14/20 09:00 04/16/20 09:13 I have reviewed the current psychotropics carefully including drug interactions. Risk benefit ratio favors no change other than as noted in my dictated progress note. Diagnosis: Problems: (1) Impulse control disorder, unspecified (2) Anxiety disorder, unspecified (3) Dementia, vascular, with depression (4) Dementia, vascular, with delusions (5) Dementia in Alzheimer's disease with depression (6) Dementia in Alzheimer's disease with delusions (7) Dementia of the Alzheimer's type with early onset with behavioral disturbance (8) Major neurocognitive disorder YOLANDA BURGESS MD Apr 16, 2020 21:14
--- NOTE | 2020-04-16 22:48 | NUR ---
Pt located in the dayroom this evening. Pt calm, cooperative and interactive with staff and peers. Compliant with whole medications.
[2020-04-17 06:02] VITALS: BP_SYST 149; BP_SYST 161; BP_DIAS 84; BP_DIAS 91
[2020-04-17] MEDS: MEMANTINE 10 MG TABLET. PO SCH ×2 (08:51→19:33)
[2020-04-17] MEDS: SERTRALINE 25 MG TABLET. PO SCH (08:51)
[2020-04-17] MEDS: QUEtiapine 25 MG TABLET. PO SCH ×4 (08:52→19:33)
[2020-04-17] MEDS: ATENOLOL 25 MG TABLET PO SCH (08:52)
[2020-04-17] MEDS: ASPIRIN CHEWABLE 81 MG TABLET. PO SCH (08:52)
[2020-04-17] MEDS: LOSARTAN 50 MG TABLET. PO SCH (08:52)
[2020-04-17] MEDS: THIAMINE 100 MG TABLET. PO SCH (08:52)
[2020-04-17] MEDS: amLODIPine BESYLATE 10 MG TABLET PO SCH (08:53)
[2020-04-17] MEDS: TAMSULOSIN 0.4 MG CAP.ER.24H. PO SCH (08:53)
[2020-04-17] MEDS: POTASSIUM CHLORIDE 20 MEQ TABLET.ER. PO SCH (08:53)
[2020-04-17] MEDS: FLUTICASONE 50MCG/NASAL SPRAY 16GM BOTTLE. NS SCH (08:54)
[2020-04-17] MEDS: FLUTICASONE/VILANTEROL 200/25 INHALER. INH SCH (08:54)
--- NOTE | 2020-04-17 11:47 | NUR ---
Left voice message for Dannie at [facility] inquiring about admission decision as MIRLANDE had sent referral packet for review on 04/12/20. Awaiting return call from Dannie. Addendum: 04/17/20 at 1421 by DEMETRIUS NOGUEIRA Received return call from Dannie at [facility] indicating that they do not have a room available at this time that would be a good fit for Clark. Call placed to Cheryle, daughter/POParris, to inform. Clark currently has a room at [facility]. Cheryle is going to research [facility] as possible alternate placement option but expressed that Clark will return to [facility] if alternate placement can't be secured. Addendum: 04/17/20 at 1430 by DEMETRIUS NOGUEIRA MIRLANDE faxed current notes, medication list, and labs to Antoinette at [facility] for review.
[2020-04-17 16:15] VITALS: BP 175/74
--- NOTE | 2020-04-17 17:33 | NUR ---
Patient has been calm, compliant, and pleasantly confused. He spent most of the shift wandering in the hallways or sitting in day room. Will continue to monitor and report to oncoming shift.
[2020-04-17] MEDS: DONEPEZIL HCL 10 MG TABLET PO SCH (19:33)
[2020-04-17] MEDS: traZODone 50 MG TABLET. PO SCH (19:33)
[2020-04-17] MEDS: MIRTAZAPINE 15 MG TABLET PO SCH (19:33)
[2020-04-17] MEDS: ATORVASTATIN CALCIUM 20 MG TABLET PO SCH (19:33)
--- NOTE | 2020-04-17 20:47 | PDOC ---
Exam Note: Khanh Note: Please also refer to the separate dictated note~for this date of service dictated separately.~Patient seen individually. Discussed the patient with Nursing staff reviewed the chart.~Reviewed interim history and current functioning. Reviewed vital signs,~Labs/ Radiology~and current medications noted below. Continue current treatment with the changes noted in the dictated addendum note Assessment: Vital Signs/I&O: Vital Signs Date Time Temp Pulse Resp B/P (MAP) Pulse Ox O2 Delivery O2 Flow Rate FiO2 04/17/20 16:15 97.7 52 20 175/74 (107) 97 04/17/20 06:02 Room Air I & O 04/16/20 04/16/20 04/17/20 15:00 23:00 07:00 Intake Total 440 ml 320 ml Balance 440 ml 320 ml Current Medications: Meds: Current Medications Medications (Trade) Dose Ordered Sig/Zohaib Route PRN Reason Start Time Stop Time Status Last Admin Dose Admin Amlodipine Besylate (Norvasc) 10 mg DAILY PO 04/04/20 09:00 04/17/20 08:53 Aspirin (Aspirin Chewable) 81 mg DAILY PO 04/04/20 09:00 04/17/20 08:52 Atenolol (Tenormin) 25 mg DAILY PO 04/04/20 09:00 04/17/20 08:52 Haloperidol (Haldol) 2.5 mg PRN Q8HRS PRN PO delusions 04/03/20 15:45 04/04/20 18:46 DC 04/04/20 10:16 Losartan Potassium (Cozaar) 50 mg DAILY PO 04/04/20 09:00 04/17/20 08:52 Memantine (Namenda) 10 mg BID PO 04/03/20 21:00 04/17/20 19:33 Quetiapine Fumarate (SEROquel) 75 mg QHS PO 04/03/20 21:00 04/17/20 19:33 Tamsulosin HCl (Flomax) 0.8 mg DAILY PO 04/04/20 09:00 04/17/20 08:53 Trazodone HCl (Desyrel) 50 mg QHS PO 04/03/20 21:00 04/17/20 19:33 Atorvastatin Calcium (Lipitor) 40 mg QHS PO 04/03/20 21:00 04/17/20 19:33 Artificial Tears (Refresh Classic) 1 drop PRN Q15MIN PRN OD DRY EYE 04/03/20 15:45 Donepezil HCl (Aricept) 5 mg HS PO 04/03/20 21:00 04/10/20 17:50 DC 04/09/20 20:25 Fluticasone Propionate (Flonase) 1 spray DAILY NS 04/04/20 09:00 04/15/20 08:10 Fluticasone/ Vilanterol (Breo Ellipta 200-25 Mcg) 1 puff DAILY INH 04/04/20 09:00 04/15/20 08:10 Loperamide HCl (Imodium) 2 mg PRN Q15MIN PRN PO DIARRHEA 04/03/20 15:45 Al Hydroxide/Mg Hydroxide (Mylanta Plus Xs) 30 ml PRN Q2HR PRN PO DYSPEPSIA 04/03/20 15:45 Melatonin (Melatonin) 3 mg QHS PO 04/03/20 21:00 04/04/20 18:46 DC 04/03/20 20:23 Thiamine HCl (Vitamin B-1) 100 mg DAILY PO 04/04/20 09:00 04/17/20 08:52 Sodium Chloride (Saline Mist Nasal) 2 clifford PRN BID PRN NS NASAL CONGESTION 04/03/20 15:30 Acetaminophen (Tylenol) 650 mg PRN Q6HRS PRN PO MILD PAIN / TEMP > 100.3'F 04/03/20 16:30 04/08/20 21:44 Multi-Ingredient Ointment (Analgesic [place]) 1 clifford PRN QID PRN TP MUSCLE PAIN 04/03/20 16:30 04/07/20 01:56 Al Hydroxide/Mg Hydroxide (Mylanta Plus Xs) 15 ml PRN AFTMEALHC PRN PO DYSPEPSIA 04/03/20 16:30 04/04/20 08:38 DC Magnesium Hydroxide (Milk Of Magnesia) 2,400 mg PRN QHS PRN PO CONSTIPATION 04/03/20 16:30 Vitamin D (Vitamin D3) 50,000 unit WEEKLY PO 04/05/20 09:00 04/12/20 08:36 Mirtazapine (Remeron) 7.5 mg QHS PO 04/04/20 21:00 04/10/20 17:50 DC 04/09/20 20:25 Quetiapine Fumarate (SEROquel) 12.5 mg 0900,1300,1700 PO 04/05/20 09:00 04/07/20 18:37 DC 04/07/20 17:05 Olanzapine (ZyPREXA ZYDIS) 2.5 mg PRN Q2HRS PRN PO PSYCHOSIS 04/04/20 18:45 04/15/20 23:46 Potassium Chloride (Klor-Con) 40 meq 1X ONCE PO 04/04/20 21:30 04/04/20 21:32 DC 04/04/20 21:30 Potassium Chloride (Klor-Con) 20 meq DAILYWBKFT PO 04/05/20 08:00 04/17/20 08:53 Oxycodone HCl (Roxicodone) 5 mg PRN Q6HRS PRN PO PAIN 04/07/20 16:30 04/15/20 23:46 Quetiapine Fumarate (SEROquel) 12.5 mg 0900,1700 PO 04/08/20 09:00 04/17/20 16:57 Quetiapine Fumarate (SEROquel) 25 mg DAILYWLUN PO 04/08/20 12:00 04/17/20 12:18 Donepezil HCl (Aricept) 10 mg HS PO 04/10/20 21:00 04/17/20 19:33 Mirtazapine (Remeron) 15 mg QHS PO 04/10/20 21:00 04/17/20 19:33 Sertraline HCl (Zoloft) 25 mg DAILY PO 04/11/20 09:00 04/13/20 21:00 DC 04/13/20 08:08 Sertraline HCl (Zoloft) 50 mg DAILY PO 04/14/20 09:00 04/17/20 08:51 I have reviewed the current psychotropics carefully including drug interactions. Risk benefit ratio favors no change other than as noted in my dictated progress note. Diagnosis: Problems: (1) Impulse control disorder, unspecified (2) Anxiety disorder, unspecified (3) Dementia, vascular, with depression (4) Dementia, vascular, with delusions (5) Dementia in Alzheimer's disease with depression (6) Dementia in Alzheimer's disease with delusions (7) Dementia of the Alzheimer's type with early onset with behavioral disturbance (8) Major neurocognitive disorder YOLANDA BURGESS MD Apr 17, 2020 20:47
--- NOTE | 2020-04-17 20:47 | PDOC ---
Exam Note: Khanh Note: This note is a late entry for 04/16/2020 covers elements not covered in my initial note. Subjective: The patient was seen individually in the evening of 04/16/2020 with Ashkan HINSON, discussed and reviewed the chart. He slept 7-3/4 hours previous night. He woke up around 2.30 and was yelling to the bathroom. He was combative with staff in the morning, then much calmer. Review of Systems: Ambulation impaired in wheelchair. No CV, , pulmonary, eye, ENT system symptoms on review. Mental Status Exam: The patient is oriented to himself. He is verbal, interact jay jay, talking repeatedly about discharge plans and I addressed with him. Speech is coherent. Abstraction is fair. Computation impaired. Language function intact. Mood and affect somewhat anxious, labile. Laboratory Data: Reviewed. Impression: Major neurocognitive disorder Alzheimer vascular with delusion, depression, behavioral disturbance. Anxiety disorder unspecified. Impulse control disorder unspecified. Plan: No change from initial note. Assessment: Vital Signs/I&O: Vital Signs Date Time Temp Pulse Resp B/P (MAP) Pulse Ox O2 Delivery O2 Flow Rate FiO2 04/17/20 16:15 97.7 52 20 175/74 (107) 97 04/17/20 06:02 Room Air I & O 04/16/20 04/16/20 04/17/20 15:00 23:00 07:00 Intake Total 440 ml 320 ml Balance 440 ml 320 ml Current Medications: Meds: Current Medications Medications (Trade) Dose Ordered Sig/Zohaib Route PRN Reason Start Time Stop Time Status Last Admin Dose Admin Amlodipine Besylate (Norvasc) 10 mg DAILY PO 04/04/20 09:00 04/17/20 08:53 Aspirin (Aspirin Chewable) 81 mg DAILY PO 04/04/20 09:00 04/17/20 08:52 Atenolol (Tenormin) 25 mg DAILY PO 04/04/20 09:00 04/17/20 08:52 Haloperidol (Haldol) 2.5 mg PRN Q8HRS PRN PO delusions 04/03/20 15:45 04/04/20 18:46 DC 04/04/20 10:16 Losartan Potassium (Cozaar) 50 mg DAILY PO 04/04/20 09:00 04/17/20 08:52 Memantine (Namenda) 10 mg BID PO 04/03/20 21:00 04/17/20 19:33 Quetiapine Fumarate (SEROquel) 75 mg QHS PO 04/03/20 21:00 04/17/20 19:33 Tamsulosin HCl (Flomax) 0.8 mg DAILY PO 04/04/20 09:00 04/17/20 08:53 Trazodone HCl (Desyrel) 50 mg QHS PO 04/03/20 21:00 04/17/20 19:33 Atorvastatin Calcium (Lipitor) 40 mg QHS PO 04/03/20 21:00 04/17/20 19:33 Artificial Tears (Refresh Classic) 1 drop PRN Q15MIN PRN OD DRY EYE 04/03/20 15:45 Donepezil HCl (Aricept) 5 mg HS PO 04/03/20 21:00 04/10/20 17:50 DC 04/09/20 20:25 Fluticasone Propionate (Flonase) 1 spray DAILY NS 04/04/20 09:00 04/15/20 08:10 Fluticasone/ Vilanterol (Breo Ellipta 200-25 Mcg) 1 puff DAILY INH 04/04/20 09:00 04/15/20 08:10 Loperamide HCl (Imodium) 2 mg PRN Q15MIN PRN PO DIARRHEA 04/03/20 15:45 Al Hydroxide/Mg Hydroxide (Mylanta Plus Xs) 30 ml PRN Q2HR PRN PO DYSPEPSIA 04/03/20 15:45 Melatonin (Melatonin) 3 mg QHS PO 04/03/20 21:00 04/04/20 18:46 DC 04/03/20 20:23 Thiamine HCl (Vitamin B-1) 100 mg DAILY PO 04/04/20 09:00 04/17/20 08:52 Sodium Chloride (Saline Mist Nasal) 2 clifford PRN BID PRN NS NASAL CONGESTION 04/03/20 15:30 Acetaminophen (Tylenol) 650 mg PRN Q6HRS PRN PO MILD PAIN / TEMP > 100.3'F 04/03/20 16:30 04/08/20 21:44 Multi-Ingredient Ointment (Analgesic [place]) 1 clifford PRN QID PRN TP MUSCLE PAIN 04/03/20 16:30 04/07/20 01:56 Al Hydroxide/Mg Hydroxide (Mylanta Plus Xs) 15 ml PRN AFTMEALHC PRN PO DYSPEPSIA 04/03/20 16:30 04/04/20 08:38 DC Magnesium Hydroxide (Milk Of Magnesia) 2,400 mg PRN QHS PRN PO CONSTIPATION 04/03/20 16:30 Vitamin D (Vitamin D3) 50,000 unit WEEKLY PO 04/05/20 09:00 04/12/20 08:36 Mirtazapine (Remeron) 7.5 mg QHS PO 04/04/20 21:00 04/10/20 17:50 DC 04/09/20 20:25 Quetiapine Fumarate (SEROquel) 12.5 mg 0900,1300,1700 PO 04/05/20 09:00 04/07/20 18:37 DC 04/07/20 17:05 Olanzapine (ZyPREXA ZYDIS) 2.5 mg PRN Q2HRS PRN PO PSYCHOSIS 04/04/20 18:45 04/15/20 23:46 Potassium Chloride (Klor-Con) 40 meq 1X ONCE PO 04/04/20 21:30 04/04/20 21:32 DC 04/04/20 21:30 Potassium Chloride (Klor-Con) 20 meq DAILYWBKFT PO 04/05/20 08:00 04/17/20 08:53 Oxycodone HCl (Roxicodone) 5 mg PRN Q6HRS PRN PO PAIN 04/07/20 16:30 04/15/20 23:46 Quetiapine Fumarate (SEROquel) 12.5 mg 0900,1700 PO 04/08/20 09:00 04/17/20 16:57 Quetiapine Fumarate (SEROquel) 25 mg DAILYWLUN PO 04/08/20 12:00 04/17/20 12:18 Donepezil HCl (Aricept) 10 mg HS PO 04/10/20 21:00 04/17/20 19:33 Mirtazapine (Remeron) 15 mg QHS PO 04/10/20 21:00 04/17/20 19:33 Sertraline HCl (Zoloft) 25 mg DAILY PO 04/11/20 09:00 04/13/20 21:00 DC 04/13/20 08:08 Sertraline HCl (Zoloft) 50 mg DAILY PO 04/14/20 09:00 04/17/20 08:51 I have reviewed the current psychotropics carefully including drug interactions. Risk benefit ratio favors no change other than as noted in my dictated progress note. Diagnosis: Problems: (1) Impulse control disorder, unspecified (2) Anxiety disorder, unspecified (3) Dementia, vascular, with depression (4) Dementia, vascular, with delusions (5) Dementia in Alzheimer's disease with depression (6) Dementia in Alzheimer's disease with delusions (7) Dementia of the Alzheimer's type with early onset with behavioral disturbance (8) Major neurocognitive disorder YOLANDA BURGESS MD Apr 17, 2020 20:47
--- NOTE | 2020-04-17 23:09 | NUR ---
Nursing Note Pt pleasant and cooperative, compliant with meds. No behaviors this pm.
[2020-04-18 06:03] VITALS: BP 162/84
--- NOTE | 2020-04-18 08:02 | PDOC ---
Exam Note: Khanh Note: This note is a late entry for 04/17/2020 covers elements not covered in my initial note. Subjective: The patient was seen individually in the evening of 04/17/2020 with Ashkan HINSON, discussed and reviewed the chart. He slept 8 hours previous night. The patient was somewhat irritable previous night with Maryam HINSON. Today he has been calmer, somewhat exit seeking at times but redirectable. This afternoon he was getting agitated but had a telephone call from his around 4 p.m. then was much calmer after that. Review of Systems: Ambulation impaired in wheelchair. No CV, , pulmonary, eye, ENT system symptoms on review. Mental Status Exam: The patient is oriented to himself. Speech is coherent. Abstraction is fair. Computation impaired. Language function intact. Mood and affect somewhat anxious, labile. Laboratory Data: Reviewed. Impression: Major neurocognitive disorder Alzheimer vascular with delusion, depression, behavioral disturbance. Anxiety disorder unspecified. Impulse control disorder unspecified. Plan: No change from initial note. Assessment: Vital Signs/I&O: Vital Signs Date Time Temp Pulse Resp B/P (MAP) Pulse Ox O2 Delivery O2 Flow Rate FiO2 04/18/20 06:03 98.2 56 18 162/84 (110) 98 Room Air I & O 04/17/20 04/17/20 04/18/20 14:59 22:59 06:59 Intake Total 960 ml 600 ml Balance 960 ml 600 ml Current Medications: Meds: Current Medications Medications (Trade) Dose Ordered Sig/Zohaib Route PRN Reason Start Time Stop Time Status Last Admin Dose Admin Amlodipine Besylate (Norvasc) 10 mg DAILY PO 04/04/20 09:00 04/17/20 08:53 Aspirin (Aspirin Chewable) 81 mg DAILY PO 04/04/20 09:00 04/17/20 08:52 Atenolol (Tenormin) 25 mg DAILY PO 04/04/20 09:00 04/17/20 08:52 Haloperidol (Haldol) 2.5 mg PRN Q8HRS PRN PO delusions 04/03/20 15:45 04/04/20 18:46 DC 04/04/20 10:16 Losartan Potassium (Cozaar) 50 mg DAILY PO 04/04/20 09:00 04/17/20 08:52 Memantine (Namenda) 10 mg BID PO 04/03/20 21:00 04/17/20 19:33 Quetiapine Fumarate (SEROquel) 75 mg QHS PO 04/03/20 21:00 04/17/20 19:33 Tamsulosin HCl (Flomax) 0.8 mg DAILY PO 04/04/20 09:00 04/17/20 08:53 Trazodone HCl (Desyrel) 50 mg QHS PO 04/03/20 21:00 04/17/20 19:33 Atorvastatin Calcium (Lipitor) 40 mg QHS PO 04/03/20 21:00 04/17/20 19:33 Artificial Tears (Refresh Classic) 1 drop PRN Q15MIN PRN OD DRY EYE 04/03/20 15:45 Donepezil HCl (Aricept) 5 mg HS PO 04/03/20 21:00 04/10/20 17:50 DC 04/09/20 20:25 Fluticasone Propionate (Flonase) 1 spray DAILY NS 04/04/20 09:00 04/15/20 08:10 Fluticasone/ Vilanterol (Breo Ellipta 200-25 Mcg) 1 puff DAILY INH 04/04/20 09:00 04/15/20 08:10 Loperamide HCl (Imodium) 2 mg PRN Q15MIN PRN PO DIARRHEA 04/03/20 15:45 Al Hydroxide/Mg Hydroxide (Mylanta Plus Xs) 30 ml PRN Q2HR PRN PO DYSPEPSIA 04/03/20 15:45 Melatonin (Melatonin) 3 mg QHS PO 04/03/20 21:00 04/04/20 18:46 DC 04/03/20 20:23 Thiamine HCl (Vitamin B-1) 100 mg DAILY PO 04/04/20 09:00 04/17/20 08:52 Sodium Chloride (Saline Mist Nasal) 2 clifford PRN BID PRN NS NASAL CONGESTION 04/03/20 15:30 Acetaminophen (Tylenol) 650 mg PRN Q6HRS PRN PO MILD PAIN / TEMP > 100.3'F 04/03/20 16:30 04/08/20 21:44 Multi-Ingredient Ointment (Analgesic [place]) 1 clifford PRN QID PRN TP MUSCLE PAIN 04/03/20 16:30 04/07/20 01:56 Al Hydroxide/Mg Hydroxide (Mylanta Plus Xs) 15 ml PRN AFTMEALHC PRN PO DYSPEPSIA 04/03/20 16:30 04/04/20 08:38 DC Magnesium Hydroxide (Milk Of Magnesia) 2,400 mg PRN QHS PRN PO CONSTIPATION 04/03/20 16:30 Vitamin D (Vitamin D3) 50,000 unit WEEKLY PO 04/05/20 09:00 04/12/20 08:36 Mirtazapine (Remeron) 7.5 mg QHS PO 04/04/20 21:00 04/10/20 17:50 DC 04/09/20 20:25 Quetiapine Fumarate (SEROquel) 12.5 mg 0900,1300,1700 PO 04/05/20 09:00 04/07/20 18:37 DC 04/07/20 17:05 Olanzapine (ZyPREXA ZYDIS) 2.5 mg PRN Q2HRS PRN PO PSYCHOSIS 04/04/20 18:45 04/15/20 23:46 Potassium Chloride (Klor-Con) 40 meq 1X ONCE PO 04/04/20 21:30 04/04/20 21:32 DC 04/04/20 21:30 Potassium Chloride (Klor-Con) 20 meq DAILYWBKFT PO 04/05/20 08:00 04/17/20 08:53 Oxycodone HCl (Roxicodone) 5 mg PRN Q6HRS PRN PO PAIN 04/07/20 16:30 04/15/20 23:46 Quetiapine Fumarate (SEROquel) 12.5 mg 0900,1700 PO 04/08/20 09:00 04/17/20 16:57 Quetiapine Fumarate (SEROquel) 25 mg DAILYWLUN PO 04/08/20 12:00 04/17/20 12:18 Donepezil HCl (Aricept) 10 mg HS PO 04/10/20 21:00 04/17/20 19:33 Mirtazapine (Remeron) 15 mg QHS PO 04/10/20 21:00 04/17/20 19:33 Sertraline HCl (Zoloft) 25 mg DAILY PO 04/11/20 09:00 04/13/20 21:00 DC 04/13/20 08:08 Sertraline HCl (Zoloft) 50 mg DAILY PO 04/14/20 09:00 04/17/20 08:51 I have reviewed the current psychotropics carefully including drug interactions. Risk benefit ratio favors no change other than as noted in my dictated progress note. Diagnosis: Problems: (1) Impulse control disorder, unspecified (2) Anxiety disorder, unspecified (3) Dementia, vascular, with depression (4) Dementia, vascular, with delusions (5) Dementia in Alzheimer's disease with depression (6) Dementia in Alzheimer's disease with delusions (7) Dementia of the Alzheimer's type with early onset with behavioral disturb ance (8) Major neurocognitive disorder YOLANDA BURGESS MD Apr 18, 2020 08:02
--- NOTE | 2020-04-18 10:08 | NUR ---
Patient returned to bed immediately after breakfast and is asleep. will hold morning medications at this time and continue to monitor.
[2020-04-18] MEDS: FLUTICASONE/VILANTEROL 200/25 INHALER. INH SCH (10:55)
[2020-04-18] MEDS: FLUTICASONE 50MCG/NASAL SPRAY 16GM BOTTLE. NS SCH (10:55)
[2020-04-18] MEDS: SERTRALINE 25 MG TABLET. PO SCH (10:57)
[2020-04-18] MEDS: POTASSIUM CHLORIDE 20 MEQ TABLET.ER. PO SCH (10:57)
[2020-04-18] MEDS: QUEtiapine 25 MG TABLET. PO SCH ×4 (10:57→20:47)
[2020-04-18] MEDS: THIAMINE 100 MG TABLET. PO SCH (10:57)
[2020-04-18] MEDS: MEMANTINE 10 MG TABLET. PO SCH ×2 (10:57→20:47)
[2020-04-18] MEDS: TAMSULOSIN 0.4 MG CAP.ER.24H. PO SCH (10:58)
[2020-04-18] MEDS: LOSARTAN 50 MG TABLET. PO SCH (10:58)
[2020-04-18] MEDS: ATENOLOL 25 MG TABLET PO SCH (10:58)
[2020-04-18] MEDS: ASPIRIN CHEWABLE 81 MG TABLET. PO SCH (10:59)
[2020-04-18] MEDS: amLODIPine BESYLATE 10 MG TABLET PO SCH (10:59)
--- NOTE | 2020-04-18 12:02 | NUR ---
Per POA request, faxed referral packet to [place] [facility] for review. Awaiting admission decision.
--- NOTE | 2020-04-18 18:30 | NUR ---
Patient has been calm, compliant, and pleasantly confused. He was irritable with a peer that kept grabbing his wheelchair later in the afternoon but calmed down quickly. Will continue to monitor and report to oncoming shift.
[2020-04-18] MEDS: DONEPEZIL HCL 10 MG TABLET PO SCH (20:47)
[2020-04-18] MEDS: ATORVASTATIN CALCIUM 20 MG TABLET PO SCH (20:47)
[2020-04-18] MEDS: traZODone 50 MG TABLET. PO SCH (20:47)
[2020-04-18] MEDS: MIRTAZAPINE 15 MG TABLET PO SCH (20:47)
[2020-04-18 22:33] VITALS: BP 130/68
--- NOTE | 2020-04-18 22:40 | PDOC ---
Exam Note: Khanh Note: Please also refer to the separate dictated note~for this date of service dictated separately.~Patient seen individually. Discussed the patient with Nursing staff reviewed the chart.~Reviewed interim history and current functioning. Reviewed vital signs,~Labs/ Radiology~and current medications noted below. Continue current treatment with the changes noted in the dictated addendum note Assessment: Vital Signs/I&O: Vital Signs Date Time Temp Pulse Resp B/P (MAP) Pulse Ox O2 Delivery O2 Flow Rate FiO2 04/18/20 22:33 98.2 57 20 130/68 (88) 97 Room Air I & O 04/17/20 04/17/20 04/18/20 15:00 23:00 07:00 Intake Total 960 ml 600 ml Balance 960 ml 600 ml Current Medications: Meds: Current Medications Medications (Trade) Dose Ordered Sig/Zohaib Route PRN Reason Start Time Stop Time Status Last Admin Dose Admin Amlodipine Besylate (Norvasc) 10 mg DAILY PO 04/04/20 09:00 04/18/20 10:59 Aspirin (Aspirin Chewable) 81 mg DAILY PO 04/04/20 09:00 04/18/20 10:59 Atenolol (Tenormin) 25 mg DAILY PO 04/04/20 09:00 04/18/20 10:58 Haloperidol (Haldol) 2.5 mg PRN Q8HRS PRN PO delusions 04/03/20 15:45 04/04/20 18:46 DC 04/04/20 10:16 Losartan Potassium (Cozaar) 50 mg DAILY PO 04/04/20 09:00 04/18/20 10:58 Memantine (Namenda) 10 mg BID PO 04/03/20 21:00 04/18/20 20:47 Quetiapine Fumarate (SEROquel) 75 mg QHS PO 04/03/20 21:00 04/18/20 20:47 Tamsulosin HCl (Flomax) 0.8 mg DAILY PO 04/04/20 09:00 04/18/20 10:58 Trazodone HCl (Desyrel) 50 mg QHS PO 04/03/20 21:00 04/18/20 20:47 Atorvastatin Calcium (Lipitor) 40 mg QHS PO 04/03/20 21:00 04/18/20 20:47 Artificial Tears (Refresh Classic) 1 drop PRN Q15MIN PRN OD DRY EYE 04/03/20 15:45 Donepezil HCl (Aricept) 5 mg HS PO 04/03/20 21:00 04/10/20 17:50 DC 04/09/20 20:25 Fluticasone Propionate (Flonase) 1 spray DAILY NS 04/04/20 09:00 04/15/20 08:10 Fluticasone/ Vilanterol (Breo Ellipta 200-25 Mcg) 1 puff DAILY INH 04/04/20 09:00 04/15/20 08:10 Loperamide HCl (Imodium) 2 mg PRN Q15MIN PRN PO DIARRHEA 04/03/20 15:45 Al Hydroxide/Mg Hydroxide (Mylanta Plus Xs) 30 ml PRN Q2HR PRN PO DYSPEPSIA 04/03/20 15:45 Melatonin (Melatonin) 3 mg QHS PO 04/03/20 21:00 04/04/20 18:46 DC 04/03/20 20:23 Thiamine HCl (Vitamin B-1) 100 mg DAILY PO 04/04/20 09:00 04/18/20 10:57 Sodium Chloride (Saline Mist Nasal) 2 clifford PRN BID PRN NS NASAL CONGESTION 04/03/20 15:30 Acetaminophen (Tylenol) 650 mg PRN Q6HRS PRN PO MILD PAIN / TEMP > 100.3'F 04/03/20 16:30 04/08/20 21:44 Multi-Ingredient Ointment (Analgesic [place]) 1 clifford PRN QID PRN TP MUSCLE PAIN 04/03/20 16:30 04/07/20 01:56 Al Hydroxide/Mg Hydroxide (Mylanta Plus Xs) 15 ml PRN AFTMEALHC PRN PO DYSPEPSIA 04/03/20 16:30 04/04/20 08:38 DC Magnesium Hydroxide (Milk Of Magnesia) 2,400 mg PRN QHS PRN PO CONSTIPATION 04/03/20 16:30 Vitamin D (Vitamin D3) 50,000 unit WEEKLY PO 04/05/20 09:00 04/12/20 08:36 Mirtazapine (Remeron) 7.5 mg QHS PO 04/04/20 21:00 04/10/20 17:50 DC 04/09/20 20:25 Quetiapine Fumarate (SEROquel) 12.5 mg 0900,1300,1700 PO 04/05/20 09:00 04/07/20 18:37 DC 04/07/20 17:05 Olanzapine (ZyPREXA ZYDIS) 2.5 mg PRN Q2HRS PRN PO PSYCHOSIS 04/04/20 18:45 04/15/20 23:46 Potassium Chloride (Klor-Con) 40 meq 1X ONCE PO 04/04/20 21:30 04/04/20 21:32 DC 04/04/20 21:30 Potassium Chloride (Klor-Con) 20 meq DAILYWBKFT PO 04/05/20 08:00 04/18/20 10:57 Oxycodone HCl (Roxicodone) 5 mg PRN Q6HRS PRN PO PAIN 04/07/20 16:30 04/15/20 23:46 Quetiapine Fumarate (SEROquel) 12.5 mg 0900,1700 PO 04/08/20 09:00 04/18/20 16:54 Quetiapine Fumarate (SEROquel) 25 mg DAILYWLUN PO 04/08/20 12:00 04/18/20 13:14 Donepezil HCl (Aricept) 10 mg HS PO 04/10/20 21:00 04/18/20 20:47 Mirtazapine (Remeron) 15 mg QHS PO 04/10/20 21:00 04/18/20 20:47 Sertraline HCl (Zoloft) 25 mg DAILY PO 04/11/20 09:00 04/13/20 21:00 DC 04/13/20 08:08 Sertraline HCl (Zoloft) 50 mg DAILY PO 04/14/20 09:00 04/18/20 10:57 I have reviewed the current psychotropics carefully including drug interactions. Risk benefit ratio favors no change other than as noted in my dictated progress note. Diagnosis: Problems: (1) Impulse control disorder, unspecified (2) Anxiety disorder, unspecified (3) Dementia, vascular, with depression (4) Dementia, vascular, with delusions (5) Dementia in Alzheimer's disease with depression (6) Dementia in Alzheimer's disease with delusions (7) Dementia of the Alzheimer's type with early onset with behavioral disturbance (8) Major neurocognitive disorder YOLANDA BURGESS MD Apr 18, 2020 22:40
--- NOTE | 2020-04-19 00:41 | NUR ---
Patient was pleasant during interaction with nurse in the hallway. He is medication compliant and cooperative. Patient did not yell out and appears less restless tonight than he has been. Will continue to monitor.
[2020-04-19 05:31] VITALS: BP 150/74
--- NOTE | 2020-04-19 07:49 | PDOC ---
Exam Note: Khanh Note: This note is a late entry for 04/18/2020 covers elements not covered in my initial note. Subjective: The patient was seen individually in the evening of 04/18/2020 with Ashkan HINSON, discussed and reviewed the chart. He slept 7-1/2 hours previous night. The patient remains confused, has been wandering, otherwise pleasant. He has not been aggressive. Review of Systems: Ambulation impaired in wheelchair. No CV, , pulmonary, eye, ENT system symptoms on review. Mental Status Exam: The patient is oriented to himself. He is pleasant, verbal, interactive. Speech is coherent. Abstraction is fair. Computation impaired. Language function intact. Mood and affect somewhat anxious, labile. No suicidal or homicidal ideation. Laboratory Data: Reviewed. Impression: Major neurocognitive disorder Alzheimer vascular with delusion, depression, behavioral disturbance. Anxiety disorder unspecified. Impulse control disorder unspecified. Plan: No change from initial note. Assessment: Vital Signs/I&O: Vital Signs Date Time Temp Pulse Resp B/P (MAP) Pulse Ox O2 Delivery O2 Flow Rate FiO2 04/19/20 05:31 98.9 62 20 150/74 (99) 94 Room Air I & O 04/18/20 04/18/20 04/19/20 14:59 22:59 06:59 Intake Total 720 ml 480 ml Balance 720 ml 480 ml Current Medications: Meds: Current Medications Medications (Trade) Dose Ordered Sig/Zohaib Route PRN Reason Start Time Stop Time Status Last Admin Dose Admin Amlodipine Besylate (Norvasc) 10 mg DAILY PO 04/04/20 09:00 04/18/20 10:59 Aspirin (Aspirin Chewable) 81 mg DAILY PO 04/04/20 09:00 04/18/20 10:59 Atenolol (Tenormin) 25 mg DAILY PO 04/04/20 09:00 04/18/20 10:58 Haloperidol (Haldol) 2.5 mg PRN Q8HRS PRN PO delusions 04/03/20 15:45 04/04/20 18:46 DC 04/04/20 10:16 Losartan Potassium (Cozaar) 50 mg DAILY PO 04/04/20 09:00 04/18/20 10:58 Memantine (Namenda) 10 mg BID PO 04/03/20 21:00 04/18/20 20:47 Quetiapine Fumarate (SEROquel) 75 mg QHS PO 04/03/20 21:00 04/18/20 20:47 Tamsulosin HCl (Flomax) 0.8 mg DAILY PO 04/04/20 09:00 04/18/20 10:58 Trazodone HCl (Desyrel) 50 mg QHS PO 04/03/20 21:00 04/18/20 20:47 Atorvastatin Calcium (Lipitor) 40 mg QHS PO 04/03/20 21:00 04/18/20 20:47 Artificial Tears (Refresh Classic) 1 drop PRN Q15MIN PRN OD DRY EYE 04/03/20 15:45 Donepezil HCl (Aricept) 5 mg HS PO 04/03/20 21:00 04/10/20 17:50 DC 04/09/20 20:25 Fluticasone Propionate (Flonase) 1 spray DAILY NS 04/04/20 09:00 04/15/20 08:10 Fluticasone/ Vilanterol (Breo Ellipta 200-25 Mcg) 1 puff DAILY INH 04/04/20 09:00 04/15/20 08:10 Loperamide HCl (Imodium) 2 mg PRN Q15MIN PRN PO DIARRHEA 04/03/20 15:45 Al Hydroxide/Mg Hydroxide (Mylanta Plus Xs) 30 ml PRN Q2HR PRN PO DYSPEPSIA 04/03/20 15:45 Melatonin (Melatonin) 3 mg QHS PO 04/03/20 21:00 04/04/20 18:46 DC 04/03/20 20:23 Thiamine HCl (Vitamin B-1) 100 mg DAILY PO 04/04/20 09:00 04/18/20 10:57 Sodium Chloride (Saline Mist Nasal) 2 clifford PRN BID PRN NS NASAL CONGESTION 04/03/20 15:30 Acetaminophen (Tylenol) 650 mg PRN Q6HRS PRN PO MILD PAIN / TEMP > 100.3'F 04/03/20 16:30 04/08/20 21:44 Multi-Ingredient Ointment (Analgesic [place]) 1 cliffodr PRN QID PRN TP MUSCLE PAIN 04/03/20 16:30 04/07/20 01:56 Al Hydroxide/Mg Hydroxide (Mylanta Plus Xs) 15 ml PRN AFTMEALHC PRN PO DYSPEPSIA 04/03/20 16:30 04/04/20 08:38 DC Magnesium Hydroxide (Milk Of Magnesia) 2,400 mg PRN QHS PRN PO CONSTIPATION 04/03/20 16:30 Vitamin D (Vitamin D3) 50,000 unit WEEKLY PO 04/05/20 09:00 04/12/20 08:36 Mirtazapine (Remeron) 7.5 mg QHS PO 04/04/20 21:00 04/10/20 17:50 DC 04/09/20 20:25 Quetiapine Fumarate (SEROquel) 12.5 mg 0900,1300,1700 PO 04/05/20 09:00 04/07/20 18:37 DC 04/07/20 17:05 Olanzapine (ZyPREXA ZYDIS) 2.5 mg PRN Q2HRS PRN PO PSYCHOSIS 04/04/20 18:45 04/15/20 23:46 Potassium Chloride (Klor-Con) 40 meq 1X ONCE PO 04/04/20 21:30 04/04/20 21:32 DC 04/04/20 21:30 Potassium Chloride (Klor-Con) 20 meq DAILYWBKFT PO 04/05/20 08:00 04/18/20 10:57 Oxycodone HCl (Roxicodone) 5 mg PRN Q6HRS PRN PO PAIN 04/07/20 16:30 04/15/20 23:46 Quetiapine Fumarate (SEROquel) 12.5 mg 0900,1700 PO 04/08/20 09:00 04/18/20 16:54 Quetiapine Fumarate (SEROquel) 25 mg DAILYWLUN PO 04/08/20 12:00 04/18/20 13:14 Donepezil HCl (Aricept) 10 mg HS PO 04/10/20 21:00 04/18/20 20:47 Mirtazapine (Remeron) 15 mg QHS PO 04/10/20 21:00 04/18/20 20:47 Sertraline HCl (Zoloft) 25 mg DAILY PO 04/11/20 09:00 04/13/20 21:00 DC 04/13/20 08:08 Sertraline HCl (Zoloft) 50 mg DAILY PO 04/14/20 09:00 04/18/20 10:57 I have reviewed the current psychotropics carefully including drug interactions. Risk benefit ratio favors no change other than as noted in my dictated progress note. Diagnosis: Problems: (1) Impulse control disorder, unspecified (2) Anxiety disorder, unspecified (3) Dementia, vascular, with depression (4) Dementia, vascular, with delusions (5) Dementia in Alzheimer's disease with depression (6) Dementia in Alzheimer's disease with delusions (7) Dementia of the Alzheimer's type with early onset with behavioral disturbance (8) Major neurocognitive disorder YOLANDA BURGESS MD Apr 19, 2020 07:49
[2020-04-19] MEDS: amLODIPine BESYLATE 10 MG TABLET PO SCH (08:14)
[2020-04-19] MEDS: SERTRALINE 25 MG TABLET. PO SCH (08:15)
[2020-04-19] MEDS: QUEtiapine 25 MG TABLET. PO SCH ×4 (08:15→19:43)
[2020-04-19] MEDS: TAMSULOSIN 0.4 MG CAP.ER.24H. PO SCH (08:15)
[2020-04-19] MEDS: LOSARTAN 50 MG TABLET. PO SCH (08:15)
[2020-04-19] MEDS: POTASSIUM CHLORIDE 20 MEQ TABLET.ER. PO SCH (08:15)
[2020-04-19] MEDS: THIAMINE 100 MG TABLET. PO SCH (08:16)
[2020-04-19] MEDS: ATENOLOL 25 MG TABLET PO SCH (08:16)
[2020-04-19] MEDS: MEMANTINE 10 MG TABLET. PO SCH ×2 (08:16→19:43)
[2020-04-19] MEDS: FLUTICASONE 50MCG/NASAL SPRAY 16GM BOTTLE. NS SCH (08:16)
[2020-04-19] MEDS: CHOLECALCIFEROL (VITAMIN D3) 50,000 UNIT CAPSULE PO SCH (08:16)
[2020-04-19] MEDS: ASPIRIN CHEWABLE 81 MG TABLET. PO SCH (08:16)
[2020-04-19] MEDS: FLUTICASONE/VILANTEROL 200/25 INHALER. INH SCH (08:19)
--- NOTE | 2020-04-19 10:47 | NUR ---
WEEKLY ACTIVITY THERAPY NOTE Date of Admission: 04/03/2020 Date of AT Assessment: 04/06/20 Precipitating behaviors that initiated intake and admission: yelling out, restless, transfers himself (states he can't sit still), screaming at others, anxious, agitated, restless, put his hands over the drivers eyes in the car, impulsive, insomnia Goal aimed: to increase relaxation and engagement Initial Goal: Pt. will participate in at least five Activity Therapy groups per week. 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
--- NOTE | 2020-04-19 11:14 | TX PLAN ---
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 Change Sleep, Angry, Confusi on/Disoriented, Poor impulse control Problem in Patient's Words: When asked, Clark stated a "Mercury Franck" brought him here. He did not recall behaviors that led up to hospitalization but did acknowledge having trouble with his memory. Additional Admission Comments: Per intake record, yelling out, restless, transfers himself (after saying he can't), screaming at others, anxious, agitated, put his hands over the chuck wagon driver's eyes in the car, impulsive, insomnia. Problems Active Problems: restless agitated yelling out verbally aggressive threatens others refusing medications Inactive Problems: intakes of meals are adequate sleep is adequate Pt Strengths/Limitations Ability for Rush: Poor Cognitive Functioning/Ability: Poor Communication Skills/Ability: Fair Financial Resources: Fair Insight/Judgement: Poor Intellectual Ability: Fair Physical Health: Fair Social Skills: Fair Stability in Family: Fair Verbal Skills: Fair Discharge Criteria Discharge Criteria: Adequate arrangements @DC, Improved behavior, Improved mood/thought Preliminary Discharge Plan Preliminary DC Plan: Memory Care Other Arrangements: [facility] or [facility] Special Precautions Special Precautions: Agitation/Assault Fall Risk: High Initial D/C Plan Memory care placement Identified Discharge Needs: Clark will return to [facility] or possibly [facility] if they are able to met Bill's needs. Currently Utilized Resources Currently Utilized Resources/P: PCP Neurologist Referrals Community Resources: Psychiatrist, out patient, if available Identified Problems/Hx/Goals Objectives/Short-Term Goals Short Term Goals: Control abnormal behavior, Dec. Aggression, Dec. Outbursts, Medication Stabilization, Monitor Med Effects Short Term Goals in Patient's: Per POA, mood and behavior stabilization. Interventions/Frequency Staff Interventions/Frequency&: Nursing to provide routine safety checks, medication administration, and adl assistance. Psychiatrist services three times weekly. SW visits twice weekly. Recreational and SW group activities as Clark is willing. 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 Social: Clark has enjoyed [employer] dancing and [employer] music. Education: Clark graduated high school in [place], [place]. Community Follow-up PCP Neurology Psychiatry, if available. Community Provider/Family Inpu: gasper Lobato/CHEN, participated in team meeting via phone on 04/05/20. Treatment Plan Explained Patient/Posting Specialist had this treatment plan explained to him/her as indicated by the signature below and has been given the opportunity to ask questions and make suggestions: Date: Patient/Posting Specialist Signature: Status Update Update WEEKLY NOTE/UPDATE: Clark is averaging 90% of meal intakes and 7.5 hours of sleep at night. He is less anxious/agitated and is responding better to redirection. Clark is now able to sit in his wheelchair for long periods of time without jumping out of it. He has had bilateral edema in his feet which is improving. He is attending meals in the dining room and was involved in three recreational groups this past week. Clark has been accepted at [facility]. CHEN Lobato, will complete admission paperwork with [facility] and Clark will transfer there on 04/25/20. Cheryle participated in team meeting via phone on this date. DEMETRUIS DENNY Apr 19, 2020 11:14
--- NOTE | 2020-04-19 13:22 | NUR ---
Patient in dining courtney at time of assessment. Patient takes medications whole with no problems. Patient is alert and oriented to self, time and place. Patient has no complaints today. Swelling in lower extremities is going down. Tends to increase as day goes on. No further concerns at this time.
--- NOTE | 2020-04-19 15:46 | NUR ---
Team meeting held this date, Cheryle participated via phone. Bill has been accepted for placement at [facility]. Mary Jane does want to proceed with this and has an appointment next week to sign admission paperwork and will get Bill's furnishings moved in. Tentative d/c date of 04/25/20. Left message for Crystal, media account executive, to coordinate upcoming transfer. Awaiting return call. Mary Jane will notify [facility] that Bill will not be returning there. MIRLANDE notified Antoinette at [facility] that Bill has been accepted at alternate placement.
[2020-04-19 16:12] VITALS: BP 152/77
[2020-04-19] MEDS: DONEPEZIL HCL 10 MG TABLET PO SCH (19:43)
[2020-04-19] MEDS: traZODone 50 MG TABLET. PO SCH (19:43)
[2020-04-19] MEDS: MIRTAZAPINE 15 MG TABLET PO SCH (19:43)
[2020-04-19] MEDS: ATORVASTATIN CALCIUM 20 MG TABLET PO SCH (19:43)
--- NOTE | 2020-04-19 20:54 | PDOC ---
Exam Note: Khanh Note: Please also refer to the separate dictated note~for this date of service dictated separately.~Patient seen individually. Discussed the patient with Nursing staff reviewed the chart.~Reviewed interim history and current functioning. Reviewed vital signs,~Labs/ Radiology~and current medications noted below. Continue current treatment with the changes noted in the dictated addendum note Assessment: Vital Signs/I&O: Vital Signs Date Time Temp Pulse Resp B/P (MAP) Pulse Ox O2 Delivery O2 Flow Rate FiO2 04/19/20 16:12 98.9 57 18 152/77 (102) 98 04/19/20 05:31 Room Air I & O 04/18/20 04/18/20 04/19/20 15:00 23:00 07:00 Intake Total 720 ml 480 ml Balance 720 ml 480 ml Current Medications: Meds: Current Medications Medications (Trade) Dose Ordered Sig/Zohaib Route PRN Reason Start Time Stop Time Status Last Admin Dose Admin Amlodipine Besylate (Norvasc) 10 mg DAILY PO 04/04/20 09:00 04/19/20 08:14 Aspirin (Aspirin Chewable) 81 mg DAILY PO 04/04/20 09:00 04/19/20 08:16 Atenolol (Tenormin) 25 mg DAILY PO 04/04/20 09:00 04/19/20 08:16 Haloperidol (Haldol) 2.5 mg PRN Q8HRS PRN PO delusions 04/03/20 15:45 04/04/20 18:46 DC 04/04/20 10:16 Losartan Potassium (Cozaar) 50 mg DAILY PO 04/04/20 09:00 04/19/20 08:15 Memantine (Namenda) 10 mg BID PO 04/03/20 21:00 04/19/20 19:43 Quetiapine Fumarate (SEROquel) 75 mg QHS PO 04/03/20 21:00 04/19/20 19:43 Tamsulosin HCl (Flomax) 0.8 mg DAILY PO 04/04/20 09:00 04/19/20 08:15 Trazodone HCl (Desyrel) 50 mg QHS PO 04/03/20 21:00 04/19/20 19:43 Atorvastatin Calcium (Lipitor) 40 mg QHS PO 04/03/20 21:00 04/19/20 19:43 Artificial Tears (Refresh Classic) 1 drop PRN Q15MIN PRN OD DRY EYE 04/03/20 15:45 Donepezil HCl (Aricept) 5 mg HS PO 04/03/20 21:00 04/10/20 17:50 DC 04/09/20 20:25 Fluticasone Propionate (Flonase) 1 spray DAILY NS 04/04/20 09:00 04/19/20 08:16 Fluticasone/ Vilanterol (Breo Ellipta 200-25 Mcg) 1 puff DAILY INH 04/04/20 09:00 04/19/20 08:19 Loperamide HCl (Imodium) 2 mg PRN Q15MIN PRN PO DIARRHEA 04/03/20 15:45 Al Hydroxide/Mg Hydroxide (Mylanta Plus Xs) 30 ml PRN Q2HR PRN PO DYSPEPSIA 04/03/20 15:45 Melatonin (Melatonin) 3 mg QHS PO 04/03/20 21:00 04/04/20 18:46 DC 04/03/20 20:23 Thiamine HCl (Vitamin B-1) 100 mg DAILY PO 04/04/20 09:00 04/19/20 08:16 Sodium Chloride (Saline Mist Nasal) 2 clifford PRN BID PRN NS NASAL CONGESTION 04/03/20 15:30 Acetaminophen (Tylenol) 650 mg PRN Q6HRS PRN PO MILD PAIN / TEMP > 100.3'F 04/03/20 16:30 04/08/20 21:44 Multi-Ingredient Ointment (Analgesic [place]) 1 clifford PRN QID PRN TP MUSCLE PAIN 04/03/20 16:30 04/07/20 01:56 Al Hydroxide/Mg Hydroxide (Mylanta Plus Xs) 15 ml PRN AFTMEALHC PRN PO DYSPEPSIA 04/03/20 16:30 04/04/20 08:38 DC Magnesium Hydroxide (Milk Of Magnesia) 2,400 mg PRN QHS PRN PO CONSTIPATION 04/03/20 16:30 Vitamin D (Vitamin D3) 50,000 unit WEEKLY PO 04/05/20 09:00 04/19/20 08:16 Mirtazapine (Remeron) 7.5 mg QHS PO 04/04/20 21:00 04/10/20 17:50 DC 04/09/20 20:25 Quetiapine Fumarate (SEROquel) 12.5 mg 0900,1300,1700 PO 04/05/20 09:00 04/07/20 18:37 DC 04/07/20 17:05 Olanzapine (ZyPREXA ZYDIS) 2.5 mg PRN Q2HRS PRN PO PSYCHOSIS 04/04/20 18:45 04/15/20 23:46 Potassium Chloride (Klor-Con) 40 meq 1X ONCE PO 04/04/20 21:30 04/04/20 21:32 DC 04/04/20 21:30 Potassium Chloride (Klor-Con) 20 meq DAILYWBKFT PO 04/05/20 08:00 04/19/20 08:15 Oxycodone HCl (Roxicodone) 5 mg PRN Q6HRS PRN PO PAIN 04/07/20 16:30 04/15/20 23:46 Quetiapine Fumarate (SEROquel) 12.5 mg 0900,1700 PO 04/08/20 09:00 04/19/20 16:40 Quetiapine Fumarate (SEROquel) 25 mg DAILYWLUN PO 04/08/20 12:00 04/19/20 12:00 Donepezil HCl (Aricept) 10 mg HS PO 04/10/20 21:00 04/19/20 19:43 Mirtazapine (Remeron) 15 mg QHS PO 04/10/20 21:00 04/19/20 19:43 Sertraline HCl (Zoloft) 25 mg DAILY PO 04/11/20 09:00 04/13/20 21:00 DC 04/13/20 08:08 Sertraline HCl (Zoloft) 50 mg DAILY PO 04/14/20 09:00 04/19/20 08:15 I have reviewed the current psychotropics carefully including drug interactions. Risk benefit ratio favors no change other than as noted in my dictated progress note. 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
[2020-04-20 05:52] VITALS: BP 150/81
[2020-04-20] MEDS: ASPIRIN CHEWABLE 81 MG TABLET. PO SCH (07:48)
[2020-04-20] MEDS: TAMSULOSIN 0.4 MG CAP.ER.24H. PO SCH (07:49)
[2020-04-20] MEDS: THIAMINE 100 MG TABLET. PO SCH (07:49)
[2020-04-20] MEDS: SERTRALINE 25 MG TABLET. PO SCH (07:49)
[2020-04-20] MEDS: QUEtiapine 25 MG TABLET. PO SCH ×4 (07:49→20:07)
[2020-04-20] MEDS: LOSARTAN 50 MG TABLET. PO SCH (07:49)
[2020-04-20] MEDS: POTASSIUM CHLORIDE 20 MEQ TABLET.ER. PO SCH (07:50)
[2020-04-20] MEDS: amLODIPine BESYLATE 10 MG TABLET PO SCH (07:50)
[2020-04-20] MEDS: MEMANTINE 10 MG TABLET. PO SCH ×2 (07:50→20:07)
[2020-04-20] MEDS: ATENOLOL 25 MG TABLET PO SCH (07:51)
[2020-04-20] MEDS: FLUTICASONE 50MCG/NASAL SPRAY 16GM BOTTLE. NS SCH (07:51)
[2020-04-20] MEDS: FLUTICASONE/VILANTEROL 200/25 INHALER. INH SCH (07:51)
--- NOTE | 2020-04-20 08:09 | PDOC ---
Exam Note: Khanh Note: This note is a late entry for 04/19/2020 covers elements not covered in my initial note. Subjective: The patient was reviewed in the morning of 04/19/2020 for a treatment team meeting with Kalyani Bernabe, Namita Molina and Lorene (elementary school social worker), Anjelica, activity therapy and Bruna HINSON, discussed and reviewed the chart. He slept 4 hours previous night. The patients daughter Mary Jane attended the conference. Overall the patient remains confused, less anxious, less irritable and less labile in his mood. Discussed his progress, medications with the daughter and discharge plans, transition to [facility]. Daughter is making arrangements to get his belongings there and it will not be ready till middle of next week. We had initially discussed earlier discharge but to help the patients adjustment to a new facility, it is better that he goes directly rather than back somewhere else and then to the new facility. Review of Systems: Ambulation impaired in wheelchair. No CV, , pulmonary, eye, ENT system symptoms on review. Mental Status Exam: The patient is oriented to himself and situation. Speech is coherent, has some latency. Abstraction is fair. Computation impaired. Language function intact. Attention span is short. Mood and affect less labile. Short-term memory is impaired. Laboratory Data: Reviewed. Impression: Major neurocognitive disorder Alzheimer vascular with delusion, depression, behavioral disturbance. Anxiety disorder unspecified. Impulse control disorder unspecified. Plan: No change from initial note. Assessment: Vital Signs/I&O: Vital Signs Date Time Temp Pulse Resp B/P (MAP) Pulse Ox O2 Delivery O2 Flow Rate FiO2 04/20/20 07:51 58 150/81 04/20/20 05:52 97.9 20 96 04/19/20 05:31 Room Air I & O 04/19/20 04/19/20 04/20/20 15:00 23:00 07:00 Intake Total 600 ml 320 ml Balance 600 ml 320 ml Current Medications: Meds: Current Medications Medications (Trade) Dose Ordered Sig/Zohaib Route PRN Reason Start Time Stop Time Status Last Admin Dose Admin Amlodipine Besylate (Norvasc) 10 mg DAILY PO 04/04/20 09:00 04/20/20 07:50 Aspirin (Aspirin Chewable) 81 mg DAILY PO 04/04/20 09:00 04/20/20 07:48 Atenolol (Tenormin) 25 mg DAILY PO 04/04/20 09:00 04/20/20 07:51 Haloperidol (Haldol) 2.5 mg PRN Q8HRS PRN PO delusions 04/03/20 15:45 04/04/20 18:46 DC 04/04/20 10:16 Losartan Potassium (Cozaar) 50 mg DAILY PO 04/04/20 09:00 04/20/20 07:49 Memantine (Namenda) 10 mg BID PO 04/03/20 21:00 04/20/20 07:50 Quetiapine Fumarate (SEROquel) 75 mg QHS PO 04/03/20 21:00 04/19/20 19:43 Tamsulosin HCl (Flomax) 0.8 mg DAILY PO 04/04/20 09:00 04/20/20 07:49 Trazodone HCl (Desyrel) 50 mg QHS PO 04/03/20 21:00 04/19/20 19:43 Atorvastatin Calcium (Lipitor) 40 mg QHS PO 04/03/20 21:00 04/19/20 19:43 Artificial Tears (Refresh Classic) 1 drop PRN Q15MIN PRN OD DRY EYE 04/03/20 15:45 Donepezil HCl (Aricept) 5 mg HS PO 04/03/20 21:00 04/10/20 17:50 DC 04/09/20 20:25 Fluticasone Propionate (Flonase) 1 spray DAILY NS 04/04/20 09:00 04/20/20 07:51 Fluticasone/ Vilanterol (Breo Ellipta 200-25 Mcg) 1 puff DAILY INH 04/04/20 09:00 04/20/20 07:51 Loperamide HCl (Imodium) 2 mg PRN Q15MIN PRN PO DIARRHEA 04/03/20 15:45 Al Hydroxide/Mg Hydroxide (Mylanta Plus Xs) 30 ml PRN Q2HR PRN PO DYSPEPSIA 04/03/20 15:45 Melatonin (Melatonin) 3 mg QHS PO 04/03/20 21:00 04/04/20 18:46 DC 04/03/20 20:23 Thiamine HCl (Vitamin B-1) 100 mg DAILY PO 04/04/20 09:00 04/20/20 07:49 Sodium Chloride (Saline Mist Nasal) 2 clifford PRN BID PRN NS NASAL CONGESTION 04/03/20 15:30 Acetaminophen (Tylenol) 650 mg PRN Q6HRS PRN PO MILD PAIN / TEMP > 100.3'F 04/03/20 16:30 04/08/20 21:44 Multi-Ingredient Ointment (Analgesic [place]) 1 clifford PRN QID PRN TP MUSCLE PAIN 04/03/20 16:30 04/07/20 01:56 Al Hydroxide/Mg Hydroxide (Mylanta Plus Xs) 15 ml PRN AFTMEALHC PRN PO DYSPEPSIA 04/03/20 16:30 04/04/20 08:38 DC Magnesium Hydroxide (Milk Of Magnesia) 2,400 mg PRN QHS PRN PO CONSTIPATION 04/03/20 16:30 Vitamin D (Vitamin D3) 50,000 unit WEEKLY PO 04/05/20 09:00 04/19/20 08:16 Mirtazapine (Remeron) 7.5 mg QHS PO 04/04/20 21:00 04/10/20 17:50 DC 04/09/20 20:25 Quetiapine Fumarate (SEROquel) 12.5 mg 0900,1300,1700 PO 04/05/20 09:00 04/07/20 18:37 DC 04/07/20 17:05 Olanzapine (ZyPREXA ZYDIS) 2.5 mg PRN Q2HRS PRN PO PSYCHOSIS 04/04/20 18:45 04/15/20 23:46 Potassium Chloride (Klor-Con) 40 meq 1X ONCE PO 04/04/20 21:30 04/04/20 21:32 DC 04/04/20 21:30 Potassium Chloride (Klor-Con) 20 meq DAILYWBKFT PO 04/05/20 08:00 04/20/20 07:50 Oxycodone HCl (Roxicodone) 5 mg PRN Q6HRS PRN PO PAIN 04/07/20 16:30 04/15/20 23:46 Quetiapine Fumarate (SEROquel) 12.5 mg 0900,1700 PO 04/08/20 09:00 04/20/20 07:49 Quetiapine Fumarate (SEROquel) 25 mg DAILYWLUN PO 04/08/20 12:00 04/19/20 12:00 Donepezil HCl (Aricept) 10 mg HS PO 04/10/20 21:00 04/19/20 19:43 Mirtazapine (Remeron) 15 mg QHS PO 04/10/20 21:00 04/19/20 19:43 Sertraline HCl (Zoloft) 25 mg DAILY PO 04/11/20 09:00 04/13/20 21:00 DC 04/13/20 08:08 Sertraline HCl (Zoloft) 50 mg DAILY PO 04/14/20 09:00 04/20/20 07:49 I have reviewed the current psychotropics carefully including drug interactions. Risk benefit ratio favors no change other than as noted in my dictated progress note. Diagnosis: Problems: (1) Impulse control disorder, unspecified (2) Anxiety disorder, unspecified (3) Dementia, vascular, with depression (4) Dementia, vascular, with delusions (5) Dementia in Alzheimer's disease with depression (6) Dementia in Alzheimer's disease with delusions (7) Dementia of the Alzheimer's type with early onset with behavioral disturbance (8) Major neurocognitive disorder YOLANDA BURGESS MD Apr 20, 2020 08:09
--- NOTE | 2020-04-20 12:30 | NUR ---
NURSING NOTE PT WAS IN WHEELCHAIR THIS AM UPON ASSESSMENT AND MEDICATION ADMINISTRATION. PT WAS A&O TO SELF ONLY. PT TOOK MEDS WHOLE, NO COMPLICATION. PT WAS CALM THIS AM AND SITTING IN DAY ROOM. PT ABLE TO WHEEL HIMSELF AROUND THE UNIT. PT HAS BILATERAL LOWER EXTREMITY 2+ EDEMA. PT STATES HIS LAST BM WAS THIS MORNING 04/20. PT HAS BEEN INTERACTIVE WITH OTHERS APPROPRIATELY. NO COMPLICATIONS. JOYA MARQUES.
[2020-04-20 15:24] VITALS: BP 142/78
[2020-04-20] MEDS: traZODone 50 MG TABLET. PO SCH (20:07)
[2020-04-20] MEDS: DONEPEZIL HCL 10 MG TABLET PO SCH (20:07)
[2020-04-20] MEDS: MIRTAZAPINE 15 MG TABLET PO SCH (20:07)
[2020-04-20] MEDS: ATORVASTATIN CALCIUM 20 MG TABLET PO SCH (20:07)
--- NOTE | 2020-04-20 20:12 | NUR ---
Patient has been demanding to go to bed. KILN OPERATOR HELPER called nurse so patient could have his HS medications and go to bed. Patient yelling at KILN OPERATOR HELPER and saying that he "already took those damn pills". Nurse attempted to explain to patient that he had not taken his HS meds but he continued to refuse the medications. Will try to give medications at a later time. Patient continues to sit in the day room watching tv.
--- NOTE | 2020-04-20 20:59 | PDOC ---
Exam Note: Khanh Note: Please also refer to the separate dictated note~for this date of service dictated separately.~Patient seen individually. Discussed the patient with Nursing staff reviewed the chart.~Reviewed interim history and current functioning. Reviewed vital signs,~Labs/ Radiology~and current medications noted below. Continue current treatment with the changes noted in the dictated addendum note Assessment: Vital Signs/I&O: Vital Signs Date Time Temp Pulse Resp B/P (MAP) Pulse Ox O2 Delivery O2 Flow Rate FiO2 04/20/20 15:24 97.3 57 17 142/78 (99) 97 Room Air I & O 04/19/20 04/19/20 04/20/20 14:59 22:59 06:59 Intake Total 600 ml 320 ml Balance 600 ml 320 ml Current Medications: Meds: Current Medications Medications (Trade) Dose Ordered Sig/Zohaib Route PRN Reason Start Time Stop Time Status Last Admin Dose Admin Amlodipine Besylate (Norvasc) 10 mg DAILY PO 04/04/20 09:00 04/20/20 07:50 Aspirin (Aspirin Chewable) 81 mg DAILY PO 04/04/20 09:00 04/20/20 07:48 Atenolol (Tenormin) 25 mg DAILY PO 04/04/20 09:00 04/20/20 07:51 Haloperidol (Haldol) 2.5 mg PRN Q8HRS PRN PO delusions 04/03/20 15:45 04/04/20 18:46 DC 04/04/20 10:16 Losartan Potassium (Cozaar) 50 mg DAILY PO 04/04/20 09:00 04/20/20 07:49 Memantine (Namenda) 10 mg BID PO 04/03/20 21:00 04/20/20 20:07 Quetiapine Fumarate (SEROquel) 75 mg QHS PO 04/03/20 21:00 04/20/20 20:07 Tamsulosin HCl (Flomax) 0.8 mg DAILY PO 04/04/20 09:00 04/20/20 07:49 Trazodone HCl (Desyrel) 50 mg QHS PO 04/03/20 21:00 04/20/20 20:07 Atorvastatin Calcium (Lipitor) 40 mg QHS PO 04/03/20 21:00 04/20/20 20:07 Artificial Tears (Refresh Classic) 1 drop PRN Q15MIN PRN OD DRY EYE 04/03/20 15:45 Donepezil HCl (Aricept) 5 mg HS PO 04/03/20 21:00 04/10/20 17:50 DC 04/09/20 20:25 Fluticasone Propionate (Flonase) 1 spray DAILY NS 04/04/20 09:00 04/20/20 07:51 Fluticasone/ Vilanterol (Breo Ellipta 200-25 Mcg) 1 puff DAILY INH 04/04/20 09:00 04/20/20 07:51 Loperamide HCl (Imodium) 2 mg PRN Q15MIN PRN PO DIARRHEA 04/03/20 15:45 Al Hydroxide/Mg Hydroxide (Mylanta Plus Xs) 30 ml PRN Q2HR PRN PO DYSPEPSIA 04/03/20 15:45 Melatonin (Melatonin) 3 mg QHS PO 04/03/20 21:00 04/04/20 18:46 DC 04/03/20 20:23 Thiamine HCl (Vitamin B-1) 100 mg DAILY PO 04/04/20 09:00 04/20/20 07:49 Sodium Chloride (Saline Mist Nasal) 2 clifford PRN BID PRN NS NASAL CONGESTION 04/03/20 15:30 Acetaminophen (Tylenol) 650 mg PRN Q6HRS PRN PO MILD PAIN / TEMP > 100.3'F 04/03/20 16:30 04/08/20 21:44 Multi-Ingredient Ointment (Analgesic [place]) 1 clifford PRN QID PRN TP MUSCLE PAIN 04/03/20 16:30 04/07/20 01:56 Al Hydroxide/Mg Hydroxide (Mylanta Plus Xs) 15 ml PRN AFTMEALHC PRN PO DYSPEPSIA 04/03/20 16:30 04/04/20 08:38 DC Magnesium Hydroxide (Milk Of Magnesia) 2,400 mg PRN QHS PRN PO CONSTIPATION 04/03/20 16:30 Vitamin D (Vitamin D3) 50,000 unit WEEKLY PO 04/05/20 09:00 04/19/20 08:16 Mirtazapine (Remeron) 7.5 mg QHS PO 04/04/20 21:00 04/10/20 17:50 DC 04/09/20 20:25 Quetiapine Fumarate (SEROquel) 12.5 mg 0900,1300,1700 PO 04/05/20 09:00 04/07/20 18:37 DC 04/07/20 17:05 Olanzapine (ZyPREXA ZYDIS) 2.5 mg PRN Q2HRS PRN PO PSYCHOSIS 04/04/20 18:45 04/20/20 15:46 Potassium Chloride (Klor-Con) 40 meq 1X ONCE PO 04/04/20 21:30 04/04/20 21:32 DC 04/04/20 21:30 Potassium Chloride (Klor-Con) 20 meq DAILYWBKFT PO 04/05/20 08:00 04/20/20 07:50 Oxycodone HCl (Roxicodone) 5 mg PRN Q6HRS PRN PO PAIN 04/07/20 16:30 04/15/20 23:46 Quetiapine Fumarate (SEROquel) 12.5 mg 0900,1700 PO 04/08/20 09:00 04/20/20 16:23 Quetiapine Fumarate (SEROquel) 25 mg DAILYWLUN PO 04/08/20 12:00 04/20/20 12:06 Donepezil HCl (Aricept) 10 mg HS PO 04/10/20 21:00 04/20/20 20:07 Mirtazapine (Remeron) 15 mg QHS PO 04/10/20 21:00 04/20/20 20:07 Sertraline HCl (Zoloft) 25 mg DAILY PO 04/11/20 09:00 04/13/20 21:00 DC 04/13/20 08:08 Sertraline HCl (Zoloft) 50 mg DAILY PO 04/14/20 09:00 04/20/20 07:49 I have reviewed the current psychotropics carefully including drug interactions. Risk benefit ratio favors no change other than as noted in my dictated progress note. Diagnosis: Problems: (1) Impulse control disorder, unspecified (2) Anxiety disorder, unspecified (3) Dementia, vascular, with depression (4) Dementia, vascular, with delusions (5) Dementia in Alzheimer's disease with depression (6) Dementia in Alzheimer's disease with delusions (7) Dementia of the Alzheimer's type with early onset with behavioral disturbance (8) Major neurocognitive disorder YOLANDA BURGESS MD Apr 20, 2020 20:59
--- NOTE | 2020-04-20 22:23 | NUR ---
Patient took his HS medications at around 2044. He was much more pleasant, cooperative and calm at that time. Patient cooperative with staff with HS cares.
[2020-04-21 06:00] VITALS: BP 167/77
[2020-04-21] MEDS: LOSARTAN 50 MG TABLET. PO SCH (08:05)
[2020-04-21] MEDS: POTASSIUM CHLORIDE 20 MEQ TABLET.ER. PO SCH (08:05)
[2020-04-21] MEDS: ASPIRIN CHEWABLE 81 MG TABLET. PO SCH (08:05)
[2020-04-21] MEDS: TAMSULOSIN 0.4 MG CAP.ER.24H. PO SCH (08:05)
[2020-04-21] MEDS: THIAMINE 100 MG TABLET. PO SCH (08:06)
[2020-04-21] MEDS: amLODIPine BESYLATE 10 MG TABLET PO SCH (08:06)
[2020-04-21] MEDS: ATENOLOL 25 MG TABLET PO SCH (08:06)
[2020-04-21] MEDS: QUEtiapine 25 MG TABLET. PO SCH ×4 (08:06→19:47)
[2020-04-21] MEDS: MEMANTINE 10 MG TABLET. PO SCH ×2 (08:06→19:47)
[2020-04-21] MEDS: SERTRALINE 25 MG TABLET. PO SCH (08:06)
[2020-04-21] MEDS: FLUTICASONE 50MCG/NASAL SPRAY 16GM BOTTLE. NS SCH (08:07)
[2020-04-21] MEDS: FLUTICASONE/VILANTEROL 200/25 INHALER. INH SCH (08:07)
--- NOTE | 2020-04-21 09:48 | NUR ---
Patient calm and cooperative. Patient wandering around socializing.
[2020-04-21 15:47] VITALS: BP 145/74
[2020-04-21] MEDS: ATORVASTATIN CALCIUM 20 MG TABLET PO SCH (19:47)
[2020-04-21] MEDS: DONEPEZIL HCL 10 MG TABLET PO SCH (19:47)
[2020-04-21] MEDS: MIRTAZAPINE 15 MG TABLET PO SCH (19:47)
[2020-04-21] MEDS: traZODone 50 MG TABLET. PO SCH (19:47)
--- NOTE | 2020-04-21 20:49 | PDOC ---
Exam Note: Khanh Note: Please also refer to the separate dictated note~for this date of service dictated separately.~Patient seen individually. Discussed the patient with Nursing staff reviewed the chart.~Reviewed interim history and current functioning. Reviewed vital signs,~Labs/ Radiology~and current medications noted below. Continue current treatment with the changes noted in the dictated addendum note Assessment: Vital Signs/I&O: Vital Signs Date Time Temp Pulse Resp B/P (MAP) Pulse Ox O2 Delivery O2 Flow Rate FiO2 04/21/20 15:47 97.9 59 17 145/74 (97) 97 Room Air I & O 04/20/20 04/20/20 04/21/20 15:00 23:00 07:00 Intake Total 700 ml 360 ml Balance 700 ml 360 ml Current Medications: Meds: Current Medications Medications (Trade) Dose Ordered Sig/Zohaib Route PRN Reason Start Time Stop Time Status Last Admin Dose Admin Amlodipine Besylate (Norvasc) 10 mg DAILY PO 04/04/20 09:00 04/21/20 08:06 Aspirin (Aspirin Chewable) 81 mg DAILY PO 04/04/20 09:00 04/21/20 08:05 Atenolol (Tenormin) 25 mg DAILY PO 04/04/20 09:00 04/21/20 08:06 Haloperidol (Haldol) 2.5 mg PRN Q8HRS PRN PO delusions 04/03/20 15:45 04/04/20 18:46 DC 04/04/20 10:16 Losartan Potassium (Cozaar) 50 mg DAILY PO 04/04/20 09:00 04/21/20 08:05 Memantine (Namenda) 10 mg BID PO 04/03/20 21:00 04/21/20 19:47 Quetiapine Fumarate (SEROquel) 75 mg QHS PO 04/03/20 21:00 04/21/20 19:47 Tamsulosin HCl (Flomax) 0.8 mg DAILY PO 04/04/20 09:00 04/21/20 08:05 Trazodone HCl (Desyrel) 50 mg QHS PO 04/03/20 21:00 04/21/20 19:47 Atorvastatin Calcium (Lipitor) 40 mg QHS PO 04/03/20 21:00 04/21/20 19:47 Artificial Tears (Refresh Classic) 1 drop PRN Q15MIN PRN OD DRY EYE 04/03/20 15:45 Donepezil HCl (Aricept) 5 mg HS PO 04/03/20 21:00 04/10/20 17:50 DC 04/09/20 20:25 Fluticasone Propionate (Flonase) 1 spray DAILY NS 04/04/20 09:00 04/21/20 08:07 Fluticasone/ Vilanterol (Breo Ellipta 200-25 Mcg) 1 puff DAILY INH 04/04/20 09:00 04/21/20 08:07 Loperamide HCl (Imodium) 2 mg PRN Q15MIN PRN PO DIARRHEA 04/03/20 15:45 Al Hydroxide/Mg Hydroxide (Mylanta Plus Xs) 30 ml PRN Q2HR PRN PO DYSPEPSIA 04/03/20 15:45 Melatonin (Melatonin) 3 mg QHS PO 04/03/20 21:00 04/04/20 18:46 DC 04/03/20 20:23 Thiamine HCl (Vitamin B-1) 100 mg DAILY PO 04/04/20 09:00 04/21/20 08:06 Sodium Chloride (Saline Mist Nasal) 2 clifford PRN BID PRN NS NASAL CONGESTION 04/03/20 15:30 Acetaminophen (Tylenol) 650 mg PRN Q6HRS PRN PO MILD PAIN / TEMP > 100.3'F 04/03/20 16:30 04/08/20 21:44 Multi-Ingredient Ointment (Analgesic [place]) 1 clifford PRN QID PRN TP MUSCLE PAIN 04/03/20 16:30 04/07/20 01:56 Al Hydroxide/Mg Hydroxide (Mylanta Plus Xs) 15 ml PRN AFTMEALHC PRN PO DYSPEPSIA 04/03/20 16:30 04/04/20 08:38 DC Magnesium Hydroxide (Milk Of Magnesia) 2,400 mg PRN QHS PRN PO CONSTIPATION 04/03/20 16:30 Vitamin D (Vitamin D3) 50,000 unit WEEKLY PO 04/05/20 09:00 04/19/20 08:16 Mirtazapine (Remeron) 7.5 mg QHS PO 04/04/20 21:00 04/10/20 17:50 DC 04/09/20 20:25 Quetiapine Fumarate (SEROquel) 12.5 mg 0900,1300,1700 PO 04/05/20 09:00 04/07/20 18:37 DC 04/07/20 17:05 Olanzapine (ZyPREXA ZYDIS) 2.5 mg PRN Q2HRS PRN PO PSYCHOSIS 04/04/20 18:45 04/20/20 15:46 Potassium Chloride (Klor-Con) 40 meq 1X ONCE PO 04/04/20 21:30 04/04/20 21:32 DC 04/04/20 21:30 Potassium Chloride (Klor-Con) 20 meq DAILYWBKFT PO 04/05/20 08:00 04/21/20 08:05 Oxycodone HCl (Roxicodone) 5 mg PRN Q6HRS PRN PO MOD-SEV PAIN 04/07/20 16:30 04/15/20 23:46 Quetiapine Fumarate (SEROquel) 12.5 mg 0900,1700 PO 04/08/20 09:00 04/21/20 16:33 Quetiapine Fumarate (SEROquel) 25 mg DAILYWLUN PO 04/08/20 12:00 04/21/20 12:01 Donepezil HCl (Aricept) 10 mg HS PO 04/10/20 21:00 04/21/20 19:47 Mirtazapine (Remeron) 15 mg QHS PO 04/10/20 21:00 04/21/20 19:47 Sertraline HCl (Zoloft) 25 mg DAILY PO 04/11/20 09:00 04/13/20 21:00 DC 04/13/20 08:08 Sertraline HCl (Zoloft) 50 mg DAILY PO 04/14/20 09:00 04/21/20 08:06 I have reviewed the current psychotropics carefully including drug interactions. Risk benefit ratio favors no change other than as noted in my dictated progress note. Diagnosis: Problems: (1) Impulse control disorder, unspecified (2) Anxiety disorder, unspecified (3) Dementia, vascular, with depression (4) Dementia, vascular, with delusions (5) Dementia in Alzheimer's disease with depression (6) Dementia in Alzheimer's disease with delusions (7) Dementia of the Alzheimer's type with early onset with behavioral disturbance (8) Major neurocognitive disorder YOLANDA BURGESS MD Apr 21, 2020 20:49
--- NOTE | 2020-04-21 22:48 | NUR ---
Pt located in the dayroom this evening. Pt calm and cooperative. Compliant with whole medications.
[2020-04-22 06:10] VITALS: BP 148/71
[2020-04-22] MEDS: POTASSIUM CHLORIDE 20 MEQ TABLET.ER. PO SCH (07:55)
[2020-04-22] MEDS: ASPIRIN CHEWABLE 81 MG TABLET. PO SCH (07:55)
[2020-04-22] MEDS: amLODIPine BESYLATE 10 MG TABLET PO SCH (07:55)
[2020-04-22] MEDS: TAMSULOSIN 0.4 MG CAP.ER.24H. PO SCH (07:55)
[2020-04-22] MEDS: THIAMINE 100 MG TABLET. PO SCH (07:56)
[2020-04-22] MEDS: MEMANTINE 10 MG TABLET. PO SCH ×2 (07:56→20:08)
[2020-04-22] MEDS: LOSARTAN 50 MG TABLET. PO SCH (07:56)
[2020-04-22] MEDS: SERTRALINE 25 MG TABLET. PO SCH (07:56)
[2020-04-22] MEDS: QUEtiapine 25 MG TABLET. PO SCH ×4 (07:56→20:10)
[2020-04-22] MEDS: ATENOLOL 25 MG TABLET PO SCH (07:56)
[2020-04-22] MEDS: FLUTICASONE 50MCG/NASAL SPRAY 16GM BOTTLE. NS SCH (07:57)
[2020-04-22] MEDS: FLUTICASONE/VILANTEROL 200/25 INHALER. INH SCH (07:57)
--- NOTE | 2020-04-22 08:19 | PDOC ---
Exam Note: Khanh Note: This note is a late entry for 04/20/2020 covers elements not covered in my initial note. Subjective: The patient was seen individually in the evening of 04/20/2020 with Laura HINSON, discussed and reviewed the chart. The patient slept 8-1/2 hours previous night. He is calmer, less anxious, remains in a wheelchair, not agitated, was pleasant, smiling as I met with him. Subjectively states he feels better. Review of Systems: Ambulation impaired in wheelchair. No CV, , pulmonary, eye, ENT system symptoms on review. Mental Status Exam: The patient is oriented to himself and situation. Speech is coherent, has some latency. Abstraction is fair. Computation impaired. Language function intact. Attention span is short. Mood and affect less labile. Short-term memory is impaired. Laboratory Data: Reviewed. Impression: Major neurocognitive disorder Alzheimer vascular with delusion, depression, behavioral disturbance. Anxiety disorder unspecified. Impulse control disorder unspecified. Plan: No change from initial note. Assessment: Vital Signs/I&O: Vital Signs Date Time Temp Pulse Resp B/P (MAP) Pulse Ox O2 Delivery O2 Flow Rate FiO2 04/22/20 07:56 61 148/71 04/22/20 06:10 98.2 18 94 04/21/20 15:47 Room Air I & O 04/21/20 04/21/20 04/22/20 15:00 23:00 07:00 Intake Total 720 ml 780 ml Balance 720 ml 780 ml Current Medications: Meds: Current Medications Medications (Trade) Dose Ordered Sig/Zohaib Route PRN Reason Start Time Stop Time Status Last Admin Dose Admin Amlodipine Besylate (Norvasc) 10 mg DAILY PO 04/04/20 09:00 04/22/20 07:55 Aspirin (Aspirin Chewable) 81 mg DAILY PO 04/04/20 09:00 04/22/20 07:55 Atenolol (Tenormin) 25 mg DAILY PO 04/04/20 09:00 04/22/20 07:56 Haloperidol (Haldol) 2.5 mg PRN Q8HRS PRN PO delusions 04/03/20 15:45 04/04/20 18:46 DC 04/04/20 10:16 Losartan Potassium (Cozaar) 50 mg DAILY PO 04/04/20 09:00 04/22/20 07:56 Memantine (Namenda) 10 mg BID PO 04/03/20 21:00 04/22/20 07:56 Quetiapine Fumarate (SEROquel) 75 mg QHS PO 04/03/20 21:00 04/21/20 19:47 Tamsulosin HCl (Flomax) 0.8 mg DAILY PO 04/04/20 09:00 04/22/20 07:55 Trazodone HCl (Desyrel) 50 mg QHS PO 04/03/20 21:00 04/21/20 19:47 Atorvastatin Calcium (Lipitor) 40 mg QHS PO 04/03/20 21:00 04/21/20 19:47 Artificial Tears (Refresh Classic) 1 drop PRN Q15MIN PRN OD DRY EYE 04/03/20 15:45 Donepezil HCl (Aricept) 5 mg HS PO 04/03/20 21:00 04/10/20 17:50 DC 04/09/20 20:25 Fluticasone Propionate (Flonase) 1 spray DAILY NS 04/04/20 09:00 04/22/20 07:57 Fluticasone/ Vilanterol (Breo Ellipta 200-25 Mcg) 1 puff DAILY INH 04/04/20 09:00 04/22/20 07:57 Loperamide HCl (Imodium) 2 mg PRN Q15MIN PRN PO DIARRHEA 04/03/20 15:45 Al Hydroxide/Mg Hydroxide (Mylanta Plus Xs) 30 ml PRN Q2HR PRN PO DYSPEPSIA 04/03/20 15:45 Melatonin (Melatonin) 3 mg QHS PO 04/03/20 21:00 04/04/20 18:46 DC 04/03/20 20:23 Thiamine HCl (Vitamin B-1) 100 mg DAILY PO 04/04/20 09:00 04/22/20 07:56 Sodium Chloride (Saline Mist Nasal) 2 clifford PRN BID PRN NS NASAL CONGESTION 04/03/20 15:30 Acetaminophen (Tylenol) 650 mg PRN Q6HRS PRN PO MILD PAIN / TEMP > 100.3'F 04/03/20 16:30 04/08/20 21:44 Multi-Ingredient Ointment (Analgesic [place]) 1 clifford PRN QID PRN TP MUSCLE PAIN 04/03/20 16:30 04/07/20 01:56 Al Hydroxide/Mg Hydroxide (Mylanta Plus Xs) 15 ml PRN AFTMEALHC PRN PO DYSPEPSIA 04/03/20 16:30 04/04/20 08:38 DC Magnesium Hydroxide (Milk Of Magnesia) 2,400 mg PRN QHS PRN PO CONSTIPATION 04/03/20 16:30 Vitamin D (Vitamin D3) 50,000 unit WEEKLY PO 04/05/20 09:00 04/19/20 08:16 Mirtazapine (Remeron) 7.5 mg QHS PO 04/04/20 21:00 04/10/20 17:50 DC 04/09/20 20:25 Quetiapine Fumarate (SEROquel) 12.5 mg 0900,1300,1700 PO 04/05/20 09:00 04/07/20 18:37 DC 04/07/20 17:05 Olanzapine (ZyPREXA ZYDIS) 2.5 mg PRN Q2HRS PRN PO PSYCHOSIS 04/04/20 18:45 04/20/20 15:46 Potassium Chloride (Klor-Con) 40 meq 1X ONCE PO 04/04/20 21:30 04/04/20 21:32 DC 04/04/20 21:30 Potassium Chloride (Klor-Con) 20 meq DAILYWBKFT PO 04/05/20 08:00 04/22/20 07:55 Oxycodone HCl (Roxicodone) 5 mg PRN Q6HRS PRN PO MOD-SEV PAIN 04/07/20 16:30 04/15/20 23:46 Quetiapine Fumarate (SEROquel) 12.5 mg 0900,1700 PO 04/08/20 09:00 04/22/20 07:56 Quetiapine Fumarate (SEROquel) 25 mg DAILYWLUN PO 04/08/20 12:00 04/21/20 12:01 Donepezil HCl (Aricept) 10 mg HS PO 04/10/20 21:00 04/21/20 19:47 Mirtazapine (Remeron) 15 mg QHS PO 04/10/20 21:00 04/21/20 19:47 Sertraline HCl (Zoloft) 25 mg DAILY PO 04/11/20 09:00 04/13/20 21:00 DC 04/13/20 08:08 Sertraline HCl (Zoloft) 50 mg DAILY PO 04/14/20 09:00 04/22/20 07:56 I have reviewed the current psychotropics carefully including drug interactions. Risk benefit ratio favors no change other than as noted in my dictated progress note. Diagnosis: Problems: (1) Impulse control disorder, unspecified (2) Anxiety disorder, unspecified (3) Dementia, vascular, with depression (4) Dementia, vascular, with delusions (5) Dementia in Alzheimer's disease with depression (6) Dementia in Alzheimer's disease with delusions (7) Dementia of the Alzheimer's type with early onset with behavioral disturbance (8) Major neurocognitive disorder YOLANDA BURGESS MD Apr 22, 2020 08:19
--- NOTE | 2020-04-22 08:33 | PDOC ---
Exam Note: Khanh Note: This note is a late entry for 04/21/2020 covers elements not covered in my initial note. Subjective: The patient was seen individually in the evening of 04/21/2020 with Nathan HINSON, discussed and reviewed the chart. The patient slept 6 hours previous night. He is resistive to medications previous night but done reasonably well today. He is less anxious and restless, compliant with medications. Review of Systems: Ambulation impaired in wheelchair. No CV, , pulmonary, eye, ENT system symptoms on review. Mental Status Exam: The patient is oriented to himself and situation. Speech is coherent, has some latency. Abstraction is fair. Computation impaired. Language function intact. Attention span is short. Mood and affect less labile. Short-term memory is impaired. Laboratory Data: Reviewed. Impression: Major neurocognitive disorder Alzheimer vascular with delusion, depression, behavioral disturbance. Anxiety disorder unspecified. Impulse control disorder unspecified. Plan: No change from initial note. The patient is quite ruminative about discharge plans. I addressed this with him. His family is looking at alternate placement rather than returning to [facility]. I processed this with the patient and he did seem to understand. Assessment: Vital Signs/I&O: Vital Signs Date Time Temp Pulse Resp B/P (MAP) Pulse Ox O2 Delivery O2 Flow Rate FiO2 04/22/20 07:56 61 148/71 04/22/20 06:10 98.2 18 94 04/21/20 15:47 Room Air I & O 04/21/20 04/21/20 04/22/20 15:00 23:00 07:00 Intake Total 720 ml 780 ml Balance 720 ml 780 ml Current Medications: Meds: Current Medications Medications (Trade) Dose Ordered Sig/Zohaib Route PRN Reason Start Time Stop Time Status Last Admin Dose Admin Amlodipine Besylate (Norvasc) 10 mg DAILY PO 04/04/20 09:00 04/22/20 07:55 Aspirin (Aspirin Chewable) 81 mg DAILY PO 04/04/20 09:00 04/22/20 07:55 Atenolol (Tenormin) 25 mg DAILY PO 04/04/20 09:00 04/22/20 07:56 Haloperidol (Haldol) 2.5 mg PRN Q8HRS PRN PO delusions 04/03/20 15:45 04/04/20 18:46 DC 04/04/20 10:16 Losartan Potassium (Cozaar) 50 mg DAILY PO 04/04/20 09:00 04/22/20 07:56 Memantine (Namenda) 10 mg BID PO 04/03/20 21:00 04/22/20 07:56 Quetiapine Fumarate (SEROquel) 75 mg QHS PO 04/03/20 21:00 04/21/20 19:47 Tamsulosin HCl (Flomax) 0.8 mg DAILY PO 04/04/20 09:00 04/22/20 07:55 Trazodone HCl (Desyrel) 50 mg QHS PO 04/03/20 21:00 04/21/20 19:47 Atorvastatin Calcium (Lipitor) 40 mg QHS PO 04/03/20 21:00 04/21/20 19:47 Artificial Tears (Refresh Classic) 1 drop PRN Q15MIN PRN OD DRY EYE 04/03/20 15:45 Donepezil HCl (Aricept) 5 mg HS PO 04/03/20 21:00 04/10/20 17:50 DC 04/09/20 20:25 Fluticasone Propionate (Flonase) 1 spray DAILY NS 04/04/20 09:00 04/22/20 07:57 Fluticasone/ Vilanterol (Breo Ellipta 200-25 Mcg) 1 puff DAILY INH 04/04/20 09:00 04/22/20 07:57 Loperamide HCl (Imodium) 2 mg PRN Q15MIN PRN PO DIARRHEA 04/03/20 15:45 Al Hydroxide/Mg Hydroxide (Mylanta Plus Xs) 30 ml PRN Q2HR PRN PO DYSPEPSIA 04/03/20 15:45 Melatonin (Melatonin) 3 mg QHS PO 04/03/20 21:00 04/04/20 18:46 DC 04/03/20 20:23 Thiamine HCl (Vitamin B-1) 100 mg DAILY PO 04/04/20 09:00 04/22/20 07:56 Sodium Chloride (Saline Mist Nasal) 2 clifford PRN BID PRN NS NASAL CONGESTION 04/03/20 15:30 Acetaminophen (Tylenol) 650 mg PRN Q6HRS PRN PO MILD PAIN / TEMP > 100.3'F 04/03/20 16:30 04/08/20 21:44 Multi-Ingredient Ointment (Analgesic [place]) 1 clifford PRN QID PRN TP MUSCLE PAIN 04/03/20 16:30 04/07/20 01:56 Al Hydroxide/Mg Hydroxide (Mylanta Plus Xs) 15 ml PRN AFTMEALHC PRN PO DYSPEPSIA 04/03/20 16:30 04/04/20 08:38 DC Magnesium Hydroxide (Milk Of Magnesia) 2,400 mg PRN QHS PRN PO CONSTIPATION 04/03/20 16:30 Vitamin D (Vitamin D3) 50,000 unit WEEKLY PO 04/05/20 09:00 04/19/20 08:16 Mirtazapine (Remeron) 7.5 mg QHS PO 04/04/20 21:00 04/10/20 17:50 DC 04/09/20 20:25 Quetiapine Fumarate (SEROquel) 12.5 mg 0900,1300,1700 PO 04/05/20 09:00 04/07/20 18:37 DC 04/07/20 17:05 Olanzapine (ZyPREXA ZYDIS) 2.5 mg PRN Q2HRS PRN PO PSYCHOSIS 04/04/20 18:45 04/20/20 15:46 Potassium Chloride (Klor-Con) 40 meq 1X ONCE PO 04/04/20 21:30 04/04/20 21:32 DC 04/04/20 21:30 Potassium Chloride (Klor-Con) 20 meq DAILYWBKFT PO 04/05/20 08:00 04/22/20 07:55 Oxycodone HCl (Roxicodone) 5 mg PRN Q6HRS PRN PO MOD-SEV PAIN 04/07/20 16:30 04/15/20 23:46 Quetiapine Fumarate (SEROquel) 12.5 mg 0900,1700 PO 04/08/20 09:00 04/22/20 07:56 Quetiapine Fumarate (SEROquel) 25 mg DAILYWLUN PO 04/08/20 12:00 04/21/20 12:01 Donepezil HCl (Aricept) 10 mg HS PO 04/10/20 21:00 04/21/20 19:47 Mirtazapine (Remeron) 15 mg QHS PO 04/10/20 21:00 04/21/20 19:47 Sertraline HCl (Zoloft) 25 mg DAILY PO 04/11/20 09:00 04/13/20 21:00 DC 04/13/20 08:08 Sertraline HCl (Zoloft) 50 mg DAILY PO 04/14/20 09:00 04/22/20 07:56 I have reviewed the current psychotropics carefully including drug interactions. Risk benefit ratio favors no change other than as noted in my dictated progress note. Diagnosis: Problems: (1) Impulse control disorder, unspecified (2) Anxiety disorder, unspecified (3) Dementia, vascular, with depression (4) Dementia, vascular, with delusions (5) Dementia in Alzheimer's disease with depression (6) Dementia in Alzheimer's disease with delusions (7) Dementia of the Alzheimer's type with early onset with behavioral disturbance (8) Major neurocognitive disorder YOLANDA BURGESS MD Apr 22, 2020 08:33
--- NOTE | 2020-04-22 09:15 | NUR ---
Patient calm and cooperative. Patient wandering around socializing.
[2020-04-22 11:33] LABS: BASO % 0 % (0-3); EOS # 0.1 x10^3/uL (0.0-0.7); EOS % 1 % (0-3); HEMATOCRIT 37.2 % (39.0-53.0); HEMOGLOBIN 12.4 g/dL (13.0-17.5); LYMPH # 0.7 x10^3/uL (1.0-4.8); LYMPH % 14 % (24-48); MEAN CORPUSCULAR HEMOGLOBIN 31 pg (25-35); MEAN CORPUSCULAR HGB CONC 33 g/dL (31-37); MEAN CORPUSCULAR VOLUME 92 fL (79-100); MONO # 0.3 x10^3/uL (0.0-1.1); MONO % 6 % (0-9); NEUT % 79 % (31-73); PLATELET COUNT 172 x10^3/uL (140-400); RED BLOOD COUNT 4.05 x10^6/uL (4.30-5.70); RED CELL DISTRIBUTION WIDTH 14.1 % (11.5-14.5); WHITE BLOOD COUNT 5.1 x10^3/uL (4.0-11.0)
[2020-04-22 12:03] LABS: ALBUMIN 3.1 g/dL (3.4-5.0); CALCIUM 8.6 mg/dL (8.5-10.1); CREATININE 1.1 mg/dL (0.7-1.3); GFR 64.1; POTASSIUM 3.9 mmol/L (3.5-5.1); TOTAL BILIRUBIN 0.6 mg/dL (0.2-1.0); TOTAL PROTEIN 6.3 g/dL (6.4-8.2)
[2020-04-22 15:42] VITALS: BP 129/60
[2020-04-22] MEDS: DONEPEZIL HCL 10 MG TABLET PO SCH (20:08)
[2020-04-22] MEDS: MIRTAZAPINE 15 MG TABLET PO SCH (20:08)
[2020-04-22] MEDS: traZODone 50 MG TABLET. PO SCH (20:10)
[2020-04-22] MEDS: ATORVASTATIN CALCIUM 20 MG TABLET PO SCH (20:10)
--- NOTE | 2020-04-22 21:54 | PDOC ---
Exam Note: Khanh Note: Please also refer to the separate dictated note~for this date of service dictated separately.~Patient seen individually. Discussed the patient with Nursing staff reviewed the chart.~Reviewed interim history and current functioning. Reviewed vital signs,~Labs/ Radiology~and current medications noted below. Continue current treatment with the changes noted in the dictated addendum note Assessment: Vital Signs/I&O: Vital Signs Date Time Temp Pulse Resp B/P (MAP) Pulse Ox O2 Delivery O2 Flow Rate FiO2 04/22/20 15:42 98.8 69 18 129/60 (83) 95 04/21/20 15:47 Room Air I & O 04/21/20 04/21/20 04/22/20 15:00 23:00 07:00 Intake Total 720 ml 780 ml Balance 720 ml 780 ml Labs: Laboratory Tests Test 04/22/20 11:05 White Blood Count 5.1 x10^3/uL (4.0-11.0) Red Blood Count 4.05 x10^6/uL (4.30-5.70) L Hemoglobin 12.4 g/dL (13.0-17.5) L Hematocrit 37.2 % (39.0-53.0) L Mean Corpuscular Volume 92 fL (79-100) Mean Corpuscular Hemoglobin 31 pg (25-35) Mean Corpuscular Hemoglobin Concent 33 g/dL (31-37) Red Cell Distribution Width 14.1 % (11.5-14.5) Platelet Count 172 x10^3/uL (140-400) Neutrophils (%) (Auto) 79 % (31-73) H Lymphocytes (%) (Auto) 14 % (24-48) L Monocytes (%) (Auto) 6 % (0-9) Eosinophils (%) (Auto) 1 % (0-3) Basophils (%) (Auto) 0 % (0-3) Neutrophils # (Auto) 4.0 x10^3uL (1.8-7.7) Lymphocytes # (Auto) 0.7 x10^3/uL (1.0-4.8) L Monocytes # (Auto) 0.3 x10^3/uL (0.0-1.1) Eosinophils # (Auto) 0.1 x10^3/uL (0.0-0.7) Basophils # (Auto) 0.0 x10^3/uL (0.0-0.2) Sodium Level 142 mmol/L (136-145) Potassium Level 3.9 mmol/L (3.5-5.1) Chloride Level 108 mmol/L (98-107) H Carbon Dioxide Level 28 mmol/L (21-32) Anion Gap 6 (6-14) Blood Urea Nitrogen 21 mg/dL (8-26) Creatinine 1.1 mg/dL (0.7-1.3) Estimated GFR (Cockcroft-Gault) 64.1 BUN/Creatinine Ratio 19 (6-20) Glucose Level 154 mg/dL (70-99) H Calcium Level 8.6 mg/dL (8.5-10.1) Total Bilirubin 0.6 mg/dL (0.2-1.0) Aspartate Amino Transferase (AST) 19 U/L (15-37) Alanine Aminotransferase (ALT) 34 U/L (16-63) Alkaline Phosphatase 86 U/L (46-116) Total Protein 6.3 g/dL (6.4-8.2) L Albumin 3.1 g/dL (3.4-5.0) L Albumin/Globulin Ratio 1.0 (1.0-1.7) Current Medications: I have reviewed the current psychotropics carefully including drug interactions. Risk benefit ratio favors no change other than as noted in my dictated progress note. Diagnosis: Problems: (1) Impulse control disorder, unspecified (2) Anxiety disorder, unspecified (3) Dementia, vascular, with depression (4) Dementia, vascular, with delusions (5) Dementia in Alzheimer's disease with depression (6) Dementia in Alzheimer's disease with delusions (7) Dementia of the Alzheimer's type with early onset with behavioral disturbance (8) Major neurocognitive disorder YOLANDA BURGESS MD Apr 22, 2020 21:53
--- NOTE | 2020-04-22 23:03 | NUR ---
Pt located in the dayroom this evening watching TV. Pt calm and pleasant. Compliant with whole medications.
[2020-04-23 06:27] VITALS: BP 121/70
[2020-04-23] MEDS: POTASSIUM CHLORIDE 20 MEQ TABLET.ER. PO SCH (08:10)
[2020-04-23] MEDS: QUEtiapine 25 MG TABLET. PO SCH ×4 (08:10→20:19)
[2020-04-23] MEDS: ASPIRIN CHEWABLE 81 MG TABLET. PO SCH (08:10)
[2020-04-23] MEDS: amLODIPine BESYLATE 10 MG TABLET PO SCH (08:10)
[2020-04-23] MEDS: LOSARTAN 50 MG TABLET. PO SCH (08:11)
[2020-04-23] MEDS: TAMSULOSIN 0.4 MG CAP.ER.24H. PO SCH (08:11)
[2020-04-23] MEDS: THIAMINE 100 MG TABLET. PO SCH (08:11)
[2020-04-23] MEDS: ATENOLOL 25 MG TABLET PO SCH (08:11)
[2020-04-23] MEDS: MEMANTINE 10 MG TABLET. PO SCH ×2 (08:11→20:19)
[2020-04-23] MEDS: SERTRALINE 25 MG TABLET. PO SCH (08:11)
[2020-04-23] MEDS: FLUTICASONE/VILANTEROL 200/25 INHALER. INH SCH (08:14)
[2020-04-23] MEDS: FLUTICASONE 50MCG/NASAL SPRAY 16GM BOTTLE. NS SCH (08:14)
--- NOTE | 2020-04-23 08:40 | PDOC ---
Exam Note: Khanh Note: This note is a late entry for 04/22/2020 covers elements not covered in my initial note. Subjective: The patient was seen individually in the evening of 04/22/2020 with Nathan HINSON, discussed and reviewed the chart. The patient slept 5-3/4 hours previous night. Overall the patient has done better, less anxious. He has been less obsessed about discharge plans but did again discuss this with me today. Review of Systems: Patient is seated in a wheelchair. No CV, , pulmonary, eye, ENT system symptoms on review. Mental Status Exam: The patient is oriented to himself and situation. Speech is coherent, has some latency. Abstraction is fair. Computation impaired. Language function intact. Attention span is short. Mood and affect less anxious. Laboratory Data: Reviewed. Impression: Major neurocognitive disorder Alzheimer vascular with delusion, depression, behavioral disturbance. Anxiety disorder unspecified. Impulse control disorder unspecified. Plan: No change from initial note. Assessment: Vital Signs/I&O: Vital Signs Date Time Temp Pulse Resp B/P (MAP) Pulse Ox O2 Delivery O2 Flow Rate FiO2 04/23/20 08:11 51 121/70 04/23/20 06:27 97.9 16 96 Room Air I & O 04/22/20 04/22/20 04/23/20 15:00 23:00 07:00 Intake Total 720 ml 480 ml Balance 720 ml 480 ml Labs: Laboratory Tests Test 04/22/20 11:05 White Blood Count 5.1 x10^3/uL (4.0-11.0) Red Blood Count 4.05 x10^6/uL (4.30-5.70) L Hemoglobin 12.4 g/dL (13.0-17.5) L Hematocrit 37.2 % (39.0-53.0) L Mean Corpuscular Volume 92 fL (79-100) Mean Corpuscular Hemoglobin 31 pg (25-35) Mean Corpuscular Hemoglobin Concent 33 g/dL (31-37) Red Cell Distribution Width 14.1 % (11.5-14.5) Platelet Count 172 x10^3/uL (140-400) Neutrophils (%) (Auto) 79 % (31-73) H Lymphocytes (%) (Auto) 14 % (24-48) L Monocytes (%) (Auto) 6 % (0-9) Eosinophils (%) (Auto) 1 % (0-3) Basophils (%) (Auto) 0 % (0-3) Neutrophils # (Auto) 4.0 x10^3uL (1.8-7.7) Lymphocytes # (Auto) 0.7 x10^3/uL (1.0-4.8) L Monocytes # (Auto) 0.3 x10^3/uL (0.0-1.1) Eosinophils # (Auto) 0.1 x10^3/uL (0.0-0.7) Basophils # (Auto) 0.0 x10^3/uL (0.0-0.2) Sodium Level 142 mmol/L (136-145) Potassium Level 3.9 mmol/L (3.5-5.1) Chloride Level 108 mmol/L (98-107) H Carbon Dioxide Level 28 mmol/L (21-32) Anion Gap 6 (6-14) Blood Urea Nitrogen 21 mg/dL (8-26) Creatinine 1.1 mg/dL (0.7-1.3) Estimated GFR (Cockcroft-Gault) 64.1 BUN/Creatinine Ratio 19 (6-20) Glucose Level 154 mg/dL (70-99) H Calcium Level 8.6 mg/dL (8.5-10.1) Total Bilirubin 0.6 mg/dL (0.2-1.0) Aspartate Amino Transferase (AST) 19 U/L (15-37) Alanine Aminotransferase (ALT) 34 U/L (16-63) Alkaline Phosphatase 86 U/L (46-116) Total Protein 6.3 g/dL (6.4-8.2) L Albumin 3.1 g/dL (3.4-5.0) L Albumin/Globulin Ratio 1.0 (1.0-1.7) Current Medications: Meds: Laboratory Tests Test 04/22/20 11:05 White Blood Count 5.1 x10^3/uL Red Blood Count 4.05 x10^6/uL Hemoglobin 12.4 g/dL Hematocrit 37.2 % Mean Corpuscular Volume 92 fL Mean Corpuscular Hemoglobin 31 pg Mean Corpuscular Hemoglobin Concent 33 g/dL Red Cell Distribution Width 14.1 % Platelet Count 172 x10^3/uL Neutrophils (%) (Auto) 79 % Lymphocytes (%) (Auto) 14 % Monocytes (%) (Auto) 6 % Eosinophils (%) (Auto) 1 % Basophils (%) (Auto) 0 % Neutrophils # (Auto) 4.0 x10^3uL Lymphocytes # (Auto) 0.7 x10^3/uL Monocytes # (Auto) 0.3 x10^3/uL Eosinophils # (Auto) 0.1 x10^3/uL Basophils # (Auto) 0.0 x10^3/uL Sodium Level 142 mmol/L Potassium Level 3.9 mmol/L Chloride Level 108 mmol/L Carbon Dioxide Level 28 mmol/L Anion Gap 6 Blood Urea Nitrogen 21 mg/dL Creatinine 1.1 mg/dL Estimated GFR (Cockcroft-Gault) 64.1 BUN/Creatinine Ratio 19 Glucose Level 154 mg/dL Calcium Level 8.6 mg/dL Total Bilirubin 0.6 mg/dL Aspartate Amino Transf (AST/SGOT) 19 U/L Alanine Aminotransferase (ALT/SGPT) 34 U/L Alkaline Phosphatase 86 U/L Total Protein 6.3 g/dL Albumin 3.1 g/dL Albumin/Globulin Ratio 1.0 Current Medications Medications (Trade) Dose Ordered Sig/Zohaib Route PRN Reason Start Time Stop Time Status Last Admin Dose Admin Amlodipine Besylate (Norvasc) 10 mg DAILY PO 04/04/20 09:00 04/23/20 08:10 Aspirin (Aspirin Chewable) 81 mg DAILY PO 04/04/20 09:00 04/23/20 08:10 Atenolol (Tenormin) 25 mg DAILY PO 04/04/20 09:00 04/23/20 08:11 Haloperidol (Haldol) 2.5 mg PRN Q8HRS PRN PO delusions 04/03/20 15:45 04/04/20 18:46 DC 04/04/20 10:16 Losartan Potassium (Cozaar) 50 mg DAILY PO 04/04/20 09:00 04/23/20 08:11 Memantine (Namenda) 10 mg BID PO 04/03/20 21:00 04/23/20 08:11 Quetiapine Fumarate (SEROquel) 75 mg QHS PO 04/03/20 21:00 04/22/20 20:10 Tamsulosin HCl (Flomax) 0.8 mg DAILY PO 04/04/20 09:00 04/23/20 08:11 Trazodone HCl (Desyrel) 50 mg QHS PO 04/03/20 21:00 04/22/20 20:10 Atorvastatin Calcium (Lipitor) 40 mg QHS PO 04/03/20 21:00 04/22/20 20:10 Artificial Tears (Refresh Classic) 1 drop PRN Q15MIN PRN OD DRY EYE 04/03/20 15:45 Donepezil HCl (Aricept) 5 mg HS PO 04/03/20 21:00 04/10/20 17:50 DC 04/09/20 20:25 Fluticasone Propionate (Flonase) 1 spray DAILY NS 04/04/20 09:00 04/23/20 08:14 Fluticasone/ Vilanterol (Breo Ellipta 200-25 Mcg) 1 puff DAILY INH 04/04/20 09:00 04/23/20 08:14 Loperamide HCl (Imodium) 2 mg PRN Q15MIN PRN PO DIARRHEA 04/03/20 15:45 Al Hydroxide/Mg Hydroxide (Mylanta Plus Xs) 30 ml PRN Q2HR PRN PO DYSPEPSIA 04/03/20 15:45 Melatonin (Melatonin) 3 mg QHS PO 04/03/20 21:00 04/04/20 18:46 DC 04/03/20 20:23 Thiamine HCl (Vitamin B-1) 100 mg DAILY PO 04/04/20 09:00 04/23/20 08:11 Sodium Chloride (Saline Mist Nasal) 2 clifford PRN BID PRN NS NASAL CONGESTION 04/03/20 15:30 Acetaminophen (Tylenol) 650 mg PRN Q6HRS PRN PO MILD PAIN / TEMP > 100.3'F 04/03/20 16:30 04/08/20 21:44 Multi-Ingredient Ointment (Analgesic [place]) 1 clifford PRN QID PRN TP MUSCLE PAIN 04/03/20 16:30 04/07/20 01:56 Al Hydroxide/Mg Hydroxide (Mylanta Plus Xs) 15 ml PRN AFTMEALHC PRN PO DYSPEPSIA 04/03/20 16:30 04/04/20 08:38 DC Magnesium Hydroxide (Milk Of Magnesia) 2,400 mg PRN QHS PRN PO CONSTIPATION 04/03/20 16:30 Vitamin D (Vitamin D3) 50,000 unit WEEKLY PO 04/05/20 09:00 04/19/20 08:16 Mirtazapine (Remeron) 7.5 mg QHS PO 04/04/20 21:00 04/10/20 17:50 DC 04/09/20 20:25 Quetiapine Fumarate (SEROquel) 12.5 mg 0900,1300,1700 PO 04/05/20 09:00 04/07/20 18:37 DC 04/07/20 17:05 Olanzapine (ZyPREXA ZYDIS) 2.5 mg PRN Q2HRS PRN PO PSYCHOSIS 04/04/20 18:45 04/23/20 01:55 Potassium Chloride (Klor-Con) 40 meq 1X ONCE PO 04/04/20 21:30 04/04/20 21:32 DC 04/04/20 21:30 Potassium Chloride (Klor-Con) 20 meq DAILYWBKFT PO 04/05/20 08:00 04/23/20 08:10 Oxycodone HCl (Roxicodone) 5 mg PRN Q6HRS PRN PO MOD-SEV PAIN 04/07/20 16:30 04/15/20 23:46 Quetiapine Fumarate (SEROquel) 12.5 mg 0900,1700 PO 04/08/20 09:00 04/23/20 08:10 Quetiapine Fumarate (SEROquel) 25 mg DAILYWLUN PO 04/08/20 12:00 04/22/20 12:27 Donepezil HCl (Aricept) 10 mg HS PO 04/10/20 21:00 04/22/20 20:08 Mirtazapine (Remeron) 15 mg QHS PO 04/10/20 21:00 04/22/20 20:08 Sertraline HCl (Zoloft) 25 mg DAILY PO 04/11/20 09:00 04/13/20 21:00 DC 04/13/20 08:08 Sertraline HCl (Zoloft) 50 mg DAILY PO 04/14/20 09:00 04/23/20 08:11 I have reviewed the current psychotropics carefully including drug interactions. Risk benefit ratio favors no change other than as noted in my dictated progress note. Diagnosis: Problems: (1) Impulse control disorder, unspecified (2) Anxiety disorder, unspecified (3) Dementia, vascular, with depression (4) Dementia, vascular, with delusions (5) Dementia in Alzheimer's disease with depression (6) Dementia in Alzheimer's disease with delusions (7) Dementia of the Alzheimer's type with early onset with behavioral disturbance (8) Major neurocognitive disorder YOLANDA BURGESS MD Apr 23, 2020 08:40
--- NOTE | 2020-04-23 13:05 | NUR ---
Crystal from [facility] phoned and expressed ability to accept Bill for placement on 04/25/20. SW faxed current notes, medication list, and most recent Covid swab for review. Call placed to [facility], to discuss transport preference as [facility] does not provide it. Cheryle is going to discuss with her sister and let SW know if they would prefer to pick Bill up or to arrange w/c van transport.
--- NOTE | 2020-04-23 13:09 | NUR ---
[facility] Social Work Discharge Planning Form Patient Name ULISES SONI Admit Date: 04/03/20 DISCHARGE PLAN Discharge Destination: [facility] Care Assessment: N/A Transportation: Discharge on 04/25/20, transport to be determined. Special Instructions/Notes: Upon admission to [facility], arrange for f/u appointment with house physician within 7-10 days. Bill will benefit from out patient psychiatry for medication management once [facility]'s in house psychiatrist begins consulting. DISCHARGE TO FACILITY Facility: [facility] Address: [address] [place] [address] Contact Name: Crystal, hospital chief executive officer Contact Name: Maurisio director perioperative PCP: Dr. Abel Walters [phone], (fax) Psychiatrist: Facility provider once available
--- NOTE | 2020-04-23 14:05 | NUR ---
Cheryle, daughter, called back and prefers for w/c van transport to be arranged for 04/25/20. MIRLANDE contacted Reema at [facility] and arranged for picker on 04/25/20 at 10am. Requested that [employer] contact Cheryle directly for payment. Call placed to Crystal, [facility], to inform of transport arrangements.
[2020-04-23 15:26] VITALS: BP 163/71
[2020-04-23] MEDS: MIRTAZAPINE 15 MG TABLET PO SCH (20:19)
[2020-04-23] MEDS: DONEPEZIL HCL 10 MG TABLET PO SCH (20:19)
[2020-04-23] MEDS: traZODone 50 MG TABLET. PO SCH (20:19)
[2020-04-23] MEDS: ATORVASTATIN CALCIUM 20 MG TABLET PO SCH (20:19)
--- NOTE | 2020-04-23 21:58 | PDOC ---
Exam Note: Khanh Note: Please also refer to the separate dictated note~for this date of service dictated separately.~Patient seen individually. Discussed the patient with Nursing staff reviewed the chart.~Reviewed interim history and current functioning. Reviewed vital signs,~Labs/ Radiology~and current medications noted below. Continue current treatment with the changes noted in the dictated addendum note Assessment: Vital Signs/I&O: Vital Signs Date Time Temp Pulse Resp B/P (MAP) Pulse Ox O2 Delivery O2 Flow Rate FiO2 04/23/20 15:26 97.7 62 18 163/71 (101) 95 04/23/20 06:27 Room Air I & O 04/22/20 04/22/20 04/23/20 15:00 23:00 07:00 Intake Total 720 ml 480 ml Balance 720 ml 480 ml Current Medications: Meds: Current Medications Medications (Trade) Dose Ordered Sig/Zohaib Route PRN Reason Start Time Stop Time Status Last Admin Dose Admin Amlodipine Besylate (Norvasc) 10 mg DAILY PO 04/04/20 09:00 04/23/20 08:10 Aspirin (Aspirin Chewable) 81 mg DAILY PO 04/04/20 09:00 04/23/20 08:10 Atenolol (Tenormin) 25 mg DAILY PO 04/04/20 09:00 04/23/20 08:11 Haloperidol (Haldol) 2.5 mg PRN Q8HRS PRN PO delusions 04/03/20 15:45 04/04/20 18:46 DC 04/04/20 10:16 Losartan Potassium (Cozaar) 50 mg DAILY PO 04/04/20 09:00 04/23/20 08:11 Memantine (Namenda) 10 mg BID PO 04/03/20 21:00 04/23/20 20:19 Quetiapine Fumarate (SEROquel) 75 mg QHS PO 04/03/20 21:00 04/23/20 20:19 Tamsulosin HCl (Flomax) 0.8 mg DAILY PO 04/04/20 09:00 04/23/20 08:11 Trazodone HCl (Desyrel) 50 mg QHS PO 04/03/20 21:00 04/23/20 20:19 Atorvastatin Calcium (Lipitor) 40 mg QHS PO 04/03/20 21:00 04/23/20 20:19 Artificial Tears (Refresh Classic) 1 drop PRN Q15MIN PRN OD DRY EYE 04/03/20 15:45 Donepezil HCl (Aricept) 5 mg HS PO 04/03/20 21:00 04/10/20 17:50 DC 04/09/20 20:25 Fluticasone Propionate (Flonase) 1 spray DAILY NS 04/04/20 09:00 04/23/20 08:14 Fluticasone/ Vilanterol (Breo Ellipta 200-25 Mcg) 1 puff DAILY INH 04/04/20 09:00 04/23/20 08:14 Loperamide HCl (Imodium) 2 mg PRN Q15MIN PRN PO DIARRHEA 04/03/20 15:45 Al Hydroxide/Mg Hydroxide (Mylanta Plus Xs) 30 ml PRN Q2HR PRN PO DYSPEPSIA 04/03/20 15:45 Melatonin (Melatonin) 3 mg QHS PO 04/03/20 21:00 04/04/20 18:46 DC 04/03/20 20:23 Thiamine HCl (Vitamin B-1) 100 mg DAILY PO 04/04/20 09:00 04/23/20 08:11 Sodium Chloride (Saline Mist Nasal) 2 clifford PRN BID PRN NS NASAL CONGESTION 04/03/20 15:30 Acetaminophen (Tylenol) 650 mg PRN Q6HRS PRN PO MILD PAIN / TEMP > 100.3'F 04/03/20 16:30 04/08/20 21:44 Multi-Ingredient Ointment (Analgesic [place]) 1 clifford PRN QID PRN TP MUSCLE PAIN 04/03/20 16:30 04/07/20 01:56 Al Hydroxide/Mg Hydroxide (Mylanta Plus Xs) 15 ml PRN AFTMEALHC PRN PO DYSPEPSIA 04/03/20 16:30 04/04/20 08:38 DC Magnesium Hydroxide (Milk Of Magnesia) 2,400 mg PRN QHS PRN PO CONSTIPATION 04/03/20 16:30 Vitamin D (Vitamin D3) 50,000 unit WEEKLY PO 04/05/20 09:00 04/19/20 08:16 Mirtazapine (Remeron) 7.5 mg QHS PO 04/04/20 21:00 04/10/20 17:50 DC 04/09/20 20:25 Quetiapine Fumarate (SEROquel) 12.5 mg 0900,1300,1700 PO 04/05/20 09:00 04/07/20 18:37 DC 04/07/20 17:05 Olanzapine (ZyPREXA ZYDIS) 2.5 mg PRN Q2HRS PRN PO PSYCHOSIS 04/04/20 18:45 04/23/20 01:55 Potassium Chloride (Klor-Con) 40 meq 1X ONCE PO 04/04/20 21:30 04/04/20 21:32 DC 04/04/20 21:30 Potassium Chloride (Klor-Con) 20 meq DAILYWBKFT PO 04/05/20 08:00 04/23/20 08:10 Oxycodone HCl (Roxicodone) 5 mg PRN Q6HRS PRN PO MOD-SEV PAIN 04/07/20 16:30 04/15/20 23:46 Quetiapine Fumarate (SEROquel) 12.5 mg 0900,1700 PO 04/08/20 09:00 04/23/20 17:05 Quetiapine Fumarate (SEROquel) 25 mg DAILYWLUN PO 04/08/20 12:00 04/23/20 12:00 Donepezil HCl (Aricept) 10 mg HS PO 04/10/20 21:00 04/23/20 20:19 Mirtazapine (Remeron) 15 mg QHS PO 04/10/20 21:00 04/23/20 20:19 Sertraline HCl (Zoloft) 25 mg DAILY PO 04/11/20 09:00 04/13/20 21:00 DC 04/13/20 08:08 Sertraline HCl (Zoloft) 50 mg DAILY PO 04/14/20 09:00 04/23/20 08:11 I have reviewed the current psychotropics carefully including drug interactions. Risk benefit ratio favors no change other than as noted in my dictated progress note. Diagnosis: Problems: (1) Impulse control disorder, unspecified (2) Anxiety disorder, unspecified (3) Dementia, vascular, with depression (4) Dementia, vascular, with delusions (5) Dementia in Alzheimer's disease with depression (6) Dementia in Alzheimer's disease with delusions (7) Dementia of the Alzheimer's type with early onset with behavioral d isturbance (8) Major neurocognitive disorder YOLANDA BURGESS MD Apr 23, 2020 21:58
--- NOTE | 2020-04-23 22:33 | NUR ---
Pt located in the dayroom this evening. Pt pleasant and cooperative. Compliant with whole medications.
[2020-04-24 05:51] VITALS: BP 146/76
[2020-04-24] MEDS: amLODIPine BESYLATE 10 MG TABLET PO SCH (08:03)
[2020-04-24] MEDS: FLUTICASONE/VILANTEROL 200/25 INHALER. INH SCH (08:03)
[2020-04-24] MEDS: TAMSULOSIN 0.4 MG CAP.ER.24H. PO SCH (08:05)
[2020-04-24] MEDS: SERTRALINE 25 MG TABLET. PO SCH (08:06)
[2020-04-24] MEDS: THIAMINE 100 MG TABLET. PO SCH (08:06)
[2020-04-24] MEDS: QUEtiapine 25 MG TABLET. PO SCH ×4 (08:06→20:13)
[2020-04-24] MEDS: ATENOLOL 25 MG TABLET PO SCH (08:06)
[2020-04-24] MEDS: ASPIRIN CHEWABLE 81 MG TABLET. PO SCH (08:07)
[2020-04-24] MEDS: MEMANTINE 10 MG TABLET. PO SCH ×2 (08:07→20:13)
[2020-04-24] MEDS: LOSARTAN 50 MG TABLET. PO SCH (08:07)
[2020-04-24] MEDS: POTASSIUM CHLORIDE 20 MEQ TABLET.ER. PO SCH (08:07)
[2020-04-24] MEDS: FLUTICASONE 50MCG/NASAL SPRAY 16GM BOTTLE. NS SCH (08:10)
--- NOTE | 2020-04-24 08:11 | NUR ---
patient refused flonase.
--- NOTE | 2020-04-24 10:23 | PDOC ---
Exam Note: Khanh Note: This note is a late entry for 04/23/2020 covers elements not covered in my initial note. Subjective: The patient was seen individually in the evening of 04/23/2020 with Sydnee HINSON, discussed and reviewed the chart. The patient slept 5-3/4 hours previous night. 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 At 2 a.m. he received Zyprexa p.r.n. He has done better rest of the day. Review of Systems: Ambulation impaired in wheelchair. No CV, , pulmonary, eye, ENT system symptoms on review. Mental Status Exam: The patient is oriented to himself and situation. He was pleasant, verbal interactive, smiling. Pressure of speech is much improved and less obsessed about talking about discharge plans. Abstraction is fair. Computation impaired. Language function intact. Attention span is short. Mood and affect less anxious. Laboratory Data: Reviewed. Impression: Major neurocognitive disorder Alzheimer vascular with delusion, depression, behavioral disturbance. Anxiety disorder unspecified. Impulse control disorder unspecified. Plan: No change from initial note. Assessment: Vital Signs/I&O: Vital Signs Date Time Temp Pulse Resp B/P (MAP) Pulse Ox O2 Delivery O2 Flow Rate FiO2 04/24/20 08:07 58 04/24/20 08:06 146/76 04/24/20 05:51 97.6 20 94 Room Air I & O 04/23/20 04/23/20 04/24/20 15:00 23:00 07:00 Intake Total 960 ml 480 ml Balance 960 ml 480 ml Current Medications: Meds: Current Medications Medications (Trade) Dose Ordered Sig/Zohaib Route PRN Reason Start Time Stop Time Status Last Admin Dose Admin Amlodipine Besylate (Norvasc) 10 mg DAILY PO 04/04/20 09:00 04/24/20 08:03 Aspirin (Aspirin Chewable) 81 mg DAILY PO 04/04/20 09:00 04/24/20 08:07 Atenolol (Tenormin) 25 mg DAILY PO 04/04/20 09:00 04/24/20 08:06 Haloperidol (Haldol) 2.5 mg PRN Q8HRS PRN PO delusions 04/03/20 15:45 04/04/20 18:46 DC 04/04/20 10:16 Losartan Potassium (Cozaar) 50 mg DAILY PO 04/04/20 09:00 04/24/20 08:07 Memantine (Namenda) 10 mg BID PO 04/03/20 21:00 04/24/20 08:07 Quetiapine Fumarate (SEROquel) 75 mg QHS PO 04/03/20 21:00 04/23/20 20:19 Tamsulosin HCl (Flomax) 0.8 mg DAILY PO 04/04/20 09:00 04/24/20 08:05 Trazodone HCl (Desyrel) 50 mg QHS PO 04/03/20 21:00 04/23/20 20:19 Atorvastatin Calcium (Lipitor) 40 mg QHS PO 04/03/20 21:00 04/23/20 20:19 Artificial Tears (Refresh Classic) 1 drop PRN Q15MIN PRN OD DRY EYE 04/03/20 15:45 Donepezil HCl (Aricept) 5 mg HS PO 04/03/20 21:00 04/10/20 17:50 DC 04/09/20 20:25 Fluticasone Propionate (Flonase) 1 spray DAILY NS 04/04/20 09:00 04/23/20 08:14 Fluticasone/ Vilanterol (Breo Ellipta 200-25 Mcg) 1 puff DAILY INH 04/04/20 09:00 04/24/20 08:03 Loperamide HCl (Imodium) 2 mg PRN Q15MIN PRN PO DIARRHEA 04/03/20 15:45 Al Hydroxide/Mg Hydroxide (Mylanta Plus Xs) 30 ml PRN Q2HR PRN PO DYSPEPSIA 04/03/20 15:45 Melatonin (Melatonin) 3 mg QHS PO 04/03/20 21:00 04/04/20 18:46 DC 04/03/20 20:23 Thiamine HCl (Vitamin B-1) 100 mg DAILY PO 04/04/20 09:00 04/24/20 08:06 Sodium Chloride (Saline Mist Nasal) 2 clifford PRN BID PRN NS NASAL CONGESTION 04/03/20 15:30 Acetaminophen (Tylenol) 650 mg PRN Q6HRS PRN PO MILD PAIN / TEMP > 100.3'F 04/03/20 16:30 04/08/20 21:44 Multi-Ingredient Ointment (Analgesic [place]) 1 clifford PRN QID PRN TP MUSCLE PAIN 04/03/20 16:30 04/07/20 01:56 Al Hydroxide/Mg Hydroxide (Mylanta Plus Xs) 15 ml PRN AFTMEALHC PRN PO DYSPEPSIA 04/03/20 16:30 04/04/20 08:38 DC Magnesium Hydroxide (Milk Of Magnesia) 2,400 mg PRN QHS PRN PO CONSTIPATION 04/03/20 16:30 Vitamin D (Vitamin D3) 50,000 unit WEEKLY PO 04/05/20 09:00 04/19/20 08:16 Mirtazapine (Remeron) 7.5 mg QHS PO 04/04/20 21:00 04/10/20 17:50 DC 04/09/20 20:25 Quetiapine Fumarate (SEROquel) 12.5 mg 0900,1300,1700 PO 04/05/20 09:00 04/07/20 18:37 DC 04/07/20 17:05 Olanzapine (ZyPREXA ZYDIS) 2.5 mg PRN Q2HRS PRN PO PSYCHOSIS 04/04/20 18:45 04/23/20 01:55 Potassium Chloride (Klor-Con) 40 meq 1X ONCE PO 04/04/20 21:30 04/04/20 21:32 DC 04/04/20 21:30 Potassium Chloride (Klor-Con) 20 meq DAILYWBKFT PO 04/05/20 08:00 04/24/20 08:07 Oxycodone HCl (Roxicodone) 5 mg PRN Q6HRS PRN PO MOD-SEV PAIN 04/07/20 16:30 04/15/20 23:46 Quetiapine Fumarate (SEROquel) 12.5 mg 0900,1700 PO 04/08/20 09:00 04/24/20 08:06 Quetiapine Fumarate (SEROquel) 25 mg DAILYWLUN PO 04/08/20 12:00 04/23/20 12:00 Donepezil HCl (Aricept) 10 mg HS PO 04/10/20 21:00 04/23/20 20:19 Mirtazapine (Remeron) 15 mg QHS PO 04/10/20 21:00 04/23/20 20:19 Sertraline HCl (Zoloft) 25 mg DAILY PO 04/11/20 09:00 04/13/20 21:00 DC 04/13/20 08:08 Sertraline HCl (Zoloft) 50 mg DAILY PO 04/14/20 09:00 04/24/20 08:06 I have reviewed the current psychotropics carefully including drug interactions. Risk benefit ratio favors no change other than as noted in my dictated progress note. Diagnosis: Problems: (1) Impulse control disorder, unspecified (2) Anxiety disorder, unspecified (3) Dementia, vascular, with depression (4) Dementia, vascular, with delusions (5) Dementia in Alzheimer's disease with depression (6) Dementia in Alzheimer's disease with delusions (7) Dementia of the Alzheimer's type with early onset with behavioral disturbance (8) Major neurocognitive disorder YOLANDA BURGESS MD Apr 24, 2020 10:23
[2020-04-24 16:14] VITALS: BP 146/71
[2020-04-24] MEDS: ATORVASTATIN CALCIUM 20 MG TABLET PO SCH (20:12)
[2020-04-24] MEDS: traZODone 50 MG TABLET. PO SCH (20:13)
[2020-04-24] MEDS: MIRTAZAPINE 15 MG TABLET PO SCH (20:13)
[2020-04-24] MEDS: DONEPEZIL HCL 10 MG TABLET PO SCH (20:13)
--- NOTE | 2020-04-24 21:51 | PDOC ---
Exam Note: Khanh Note: Please also refer to the separate dictated note~for this date of service dictated separately.~Patient seen individually. Discussed the patient with Nursing staff reviewed the chart.~Reviewed interim history and current functioning. Reviewed vital signs,~Labs/ Radiology~and current medications noted below. Continue current treatment with the changes noted in the dictated addendum note Assessment: Vital Signs/I&O: Vital Signs Date Time Temp Pulse Resp B/P (MAP) Pulse Ox O2 Delivery O2 Flow Rate FiO2 04/24/20 16:14 98.0 54 20 146/71 (96) 97 04/24/20 05:51 Room Air I & O 04/23/20 04/23/20 04/24/20 15:00 23:00 07:00 Intake Total 960 ml 480 ml Balance 960 ml 480 ml Current Medications: I have reviewed the current psychotropics carefully including drug interactions. Risk benefit ratio favors no change other than as noted in my dictated progress note. Diagnosis: Problems: (1) Impulse control disorder, unspecified (2) Anxiety disorder, unspecified (3) Dementia, vascular, with depression (4) Dementia, vascular, with delusions (5) Dementia in Alzheimer's disease with depression (6) Dementia in Alzheimer's disease with delusions (7) Dementia of the Alzheimer's type with early onset with behavioral disturbance (8) Major neurocognitive disorder YOLANDA BURGESS MD Apr 24, 2020 21:51
--- NOTE | 2020-04-24 23:25 | NUR ---
Nursing Note The patient was located in the day room for his assessment and medication pass. The patient took his medication whole. The patient discussed his possible discharge with this nurse. The patient was alert to his name and the name of the city but was slightly confused regarding the year (2021). The patient is currently sleeping in his room.
[2020-04-25] MEDS ORDERED: ACET325T21 PO (00:20)
[2020-04-25] MEDS ORDERED: CHOL500021 PO (00:21)
[2020-04-25] MEDS ORDERED: MAGN24003 PO (00:22)
[2020-04-25] MEDS ORDERED: DONE10TA7 PO (00:22)
[2020-04-25] MEDS ORDERED: METH57CR17 TP (00:23)
[2020-04-25] MEDS ORDERED: MIRT15TA3 PO (00:23)
[2020-04-25] MEDS ORDERED: POTA20TA4 PO (00:24)
[2020-04-25] MEDS ORDERED: OLAN5TAB7 PO (00:24)
[2020-04-25] MEDS ORDERED: QUET25TA5 PO ×2 (00:25)
[2020-04-25] MEDS ORDERED: OXYC5TAB4 PO (00:26)
[2020-04-25] MEDS ORDERED: SERT50TA PO (00:26)
[2020-04-25 05:48] VITALS: BP 139/76
[2020-04-25] MEDS: THIAMINE 100 MG TABLET. PO SCH (08:03)
[2020-04-25] MEDS: ASPIRIN CHEWABLE 81 MG TABLET. PO SCH (08:03)
[2020-04-25] MEDS: oxyCODONE IR 5 MG TABLET PO PRN (08:03)
[2020-04-25] MEDS: QUEtiapine 25 MG TABLET. PO SCH (08:03)
[2020-04-25] MEDS: POTASSIUM CHLORIDE 20 MEQ TABLET.ER. PO SCH (08:03)
[2020-04-25 08:04] VITALS: BP 139/76
[2020-04-25] MEDS: LOSARTAN 50 MG TABLET. PO SCH (08:04)
[2020-04-25] MEDS: SERTRALINE 25 MG TABLET. PO SCH (08:04)
[2020-04-25] MEDS: MEMANTINE 10 MG TABLET. PO SCH (08:04)
[2020-04-25] MEDS: ATENOLOL 25 MG TABLET PO SCH (08:04)
[2020-04-25] MEDS: amLODIPine BESYLATE 10 MG TABLET PO SCH (08:04)
[2020-04-25] MEDS: TAMSULOSIN 0.4 MG CAP.ER.24H. PO SCH (08:05)
[2020-04-25] MEDS: FLUTICASONE 50MCG/NASAL SPRAY 16GM BOTTLE. NS SCH (08:05)
[2020-04-25] MEDS: FLUTICASONE/VILANTEROL 200/25 INHALER. INH SCH (08:05)
--- NOTE | 2020-04-25 08:52 | PDOC ---
Exam Note: Khanh Note: This note is a late entry for 04/24/2020 covers elements not covered in my initial note. Subjective: The patient was seen individually in the evening of 04/24/2020 with Cole HINSON, discussed and reviewed the chart. The patient slept 7 hours previous night. Overall the patient remains confused but appropriate, less anxious, irritable, not trying to jump out of the chair. Review of Systems: Ambulation impaired in wheelchair. No CV, , pulmonary, eye, ENT system symptoms on review. Mental Status Exam: The patient is oriented to himself and situation. During the individual visit, we discussed discharge plans for tomorrow. He is looking forward to this. Speech coherent. Abstraction is fair. Computation impaired. Language function intact. Attention span is short. Mood and affect less anxious. Laboratory Data: Reviewed. Impression: Major neurocognitive disorder Alzheimer vascular with delusion, depression, behavioral disturbance. Anxiety disorder unspecified. Impulse control disorder unspecified. Plan: No change from initial note. Assessment: Vital Signs/I&O: Vital Signs Date Time Temp Pulse Resp B/P (MAP) Pulse Ox O2 Delivery O2 Flow Rate FiO2 04/25/20 08:04 55 139/76 04/25/20 05:48 98.3 20 95 04/24/20 05:51 Room Air I & O 04/24/20 04/24/20 04/25/20 15:00 23:00 07:00 Intake Total 4140 ml 600 ml Balance 4140 ml 600 ml Current Medications: Meds: Current Medications Medications (Trade) Dose Ordered Sig/Zohaib Route PRN Reason Start Time Stop Time Status Last Admin Dose Admin Amlodipine Besylate (Norvasc) 10 mg DAILY PO 04/04/20 09:00 04/25/20 08:04 Aspirin (Aspirin Chewable) 81 mg DAILY PO 04/04/20 09:00 04/25/20 08:03 Atenolol (Tenormin) 25 mg DAILY PO 04/04/20 09:00 04/25/20 08:04 Haloperidol (Haldol) 2.5 mg PRN Q8HRS PRN PO delusions 04/03/20 15:45 04/04/20 18:46 DC 04/04/20 10:16 Losartan Potassium (Cozaar) 50 mg DAILY PO 04/04/20 09:00 04/25/20 08:04 Memantine (Namenda) 10 mg BID PO 04/03/20 21:00 04/25/20 08:04 Quetiapine Fumarate (SEROquel) 75 mg QHS PO 04/03/20 21:00 04/24/20 20:13 Tamsulosin HCl (Flomax) 0.8 mg DAILY PO 04/04/20 09:00 04/25/20 08:05 Trazodone HCl (Desyrel) 50 mg QHS PO 04/03/20 21:00 04/24/20 20:13 Atorvastatin Calcium (Lipitor) 40 mg QHS PO 04/03/20 21:00 04/24/20 20:12 Artificial Tears (Refresh Classic) 1 drop PRN Q15MIN PRN OD DRY EYE 04/03/20 15:45 Donepezil HCl (Aricept) 5 mg HS PO 04/03/20 21:00 04/10/20 17:50 DC 04/09/20 20:25 Fluticasone Propionate (Flonase) 1 spray DAILY NS 04/04/20 09:00 04/25/20 08:05 Fluticasone/ Vilanterol (Breo Ellipta 200-25 Mcg) 1 puff DAILY INH 04/04/20 09:00 04/25/20 08:05 Loperamide HCl (Imodium) 2 mg PRN Q15MIN PRN PO DIARRHEA 04/03/20 15:45 Al Hydroxide/Mg Hydroxide (Mylanta Plus Xs) 30 ml PRN Q2HR PRN PO DYSPEPSIA 04/03/20 15:45 Melatonin (Melatonin) 3 mg QHS PO 04/03/20 21:00 04/04/20 18:46 DC 04/03/20 20:23 Thiamine HCl (Vitamin B-1) 100 mg DAILY PO 04/04/20 09:00 04/25/20 08:03 Sodium Chloride (Saline Mist Nasal) 2 clifford PRN BID PRN NS NASAL CONGESTION 04/03/20 15:30 Acetaminophen (Tylenol) 650 mg PRN Q6HRS PRN PO MILD PAIN / TEMP > 100.3'F 04/03/20 16:30 04/08/20 21:44 Multi-Ingredient Ointment (Analgesic [place]) 1 clifford PRN QID PRN TP MUSCLE PAIN 04/03/20 16:30 04/07/20 01:56 Al Hydroxide/Mg Hydroxide (Mylanta Plus Xs) 15 ml PRN AFTMEALHC PRN PO DYSPEPSIA 04/03/20 16:30 04/04/20 08:38 DC Magnesium Hydroxide (Milk Of Magnesia) 2,400 mg PRN QHS PRN PO CONSTIPATION 04/03/20 16:30 Vitamin D (Vitamin D3) 50,000 unit WEEKLY PO 04/05/20 09:00 04/19/20 08:16 Mirtazapine (Remeron) 7.5 mg QHS PO 04/04/20 21:00 04/10/20 17:50 DC 04/09/20 20:25 Quetiapine Fumarate (SEROquel) 12.5 mg 0900,1300,1700 PO 04/05/20 09:00 04/07/20 18:37 DC 04/07/20 17:05 Olanzapine (ZyPREXA ZYDIS) 2.5 mg PRN Q2HRS PRN PO PSYCHOSIS 04/04/20 18:45 04/23/20 01:55 Potassium Chloride (Klor-Con) 40 meq 1X ONCE PO 04/04/20 21:30 04/04/20 21:32 DC 04/04/20 21:30 Potassium Chloride (Klor-Con) 20 meq DAILYWBKFT PO 04/05/20 08:00 04/25/20 08:03 Oxycodone HCl (Roxicodone) 5 mg PRN Q6HRS PRN PO MOD-SEV PAIN 04/07/20 16:30 04/25/20 08:03 Quetiapine Fumarate (SEROquel) 12.5 mg 0900,1700 PO 04/08/20 09:00 04/25/20 08:03 Quetiapine Fumarate (SEROquel) 25 mg DAILYWLUN PO 04/08/20 12:00 04/24/20 12:00 Donepezil HCl (Aricept) 10 mg HS PO 04/10/20 21:00 04/24/20 20:13 Mirtazapine (Remeron) 15 mg QHS PO 04/10/20 21:00 04/24/20 20:13 Sertraline HCl (Zoloft) 25 mg DAILY PO 04/11/20 09:00 04/13/20 21:00 DC 04/13/20 08:08 Sertraline HCl (Zoloft) 50 mg DAILY PO 04/14/20 09:00 04/25/20 08:04 I have reviewed the current psychotropics carefully including drug interactions. Risk benefit ratio favors no change other than as noted in my dictated progress note. Diagnosis: Problems: (1) Impulse control disorder, unspecified (2) Anxiety disorder, unspecified (3) Dementia, vascular, with depression (4) Dementia, vascular, with delusions (5) Dementia in Alzheimer's disease with depression (6) Dementia in Alzheimer's disease with delusions (7) Dementia of the Alzheimer's type with early onset with behavioral disturbance (8) Major neurocognitive disorder YOLANDA BURGESS MD Apr 25, 2020 08:52
--- NOTE | 2020-04-25 08:57 | NUR ---
Patient in dining courtney at time of assessment. Patient somewhat irritable and agitated about the amount of pills to I am giving him. He eventually smiled and took them once I split them up into 2 cups. Patient has no complaints and is excited to be leaving today. He took his pills whole and was cooperative mostly. WIll get patient ready for discharge and no further concerns at this time.
--- NOTE | 2020-04-25 10:35 | NUR ---
Transition Record was faxed to follow-up provider with the following elements: Reason for admission, procedures, tests, principal diagnosis, pending studies, patient instructions, 01/09 contact information for unit, phone number to obtain pending test results, plan for follow-up care, physician follow-up, advanced directive information, and medication list with dose, duration and instructions. This information was included in the following documents: History and physical, lab results, study results, progress notes, social work planning form, DC instruction form, patient visit summary, and medication reconciliation form. Date & time record faxed: 04/24/2020 Record faxed to: [facility] Record discussed with/ report given to: Spoke to Arti at facility with report. They were encouraged to call with any questions or concerns.
--- NOTE | 2020-04-25 22:13 | PDOC ---
Exam Note: Khanh Note: Please also refer to the separate dictated note~for this date of service dictated separately.~Patient seen individually. Discussed the patient with Nursing staff reviewed the chart.~Reviewed interim history and current functioning. Reviewed vital signs,~Labs/ Radiology~and current medications noted below. Continue current treatment with the changes noted in the dictated addendum note Assessment: Vital Signs/I&O: Vital Signs Date Time Temp Pulse Resp B/P (MAP) Pulse Ox O2 Delivery O2 Flow Rate FiO2 04/25/20 08:04 55 139/76 04/25/20 05:48 98.3 20 95 04/24/20 05:51 Room Air I & O 04/24/20 04/24/20 04/25/20 15:00 23:00 07:00 Intake Total 4140 ml 600 ml Balance 4140 ml 600 ml Current Medications: Meds: Current Medications Medications (Trade) Dose Ordered Sig/Zohaib Route PRN Reason Start Time Stop Time Status Last Admin Dose Admin Amlodipine Besylate (Norvasc) 10 mg DAILY PO 04/04/20 09:00 04/25/20 10:37 DC 04/25/20 08:04 Aspirin (Aspirin Chewable) 81 mg DAILY PO 04/04/20 09:00 04/25/20 10:37 DC 04/25/20 08:03 Atenolol (Tenormin) 25 mg DAILY PO 04/04/20 09:00 04/25/20 10:37 DC 04/25/20 08:04 Haloperidol (Haldol) 2.5 mg PRN Q8HRS PRN PO delusions 04/03/20 15:45 04/04/20 18:46 DC 04/04/20 10:16 Losartan Potassium (Cozaar) 50 mg DAILY PO 04/04/20 09:00 04/25/20 10:37 DC 04/25/20 08:04 Memantine (Namenda) 10 mg BID PO 04/03/20 21:00 04/25/20 10:37 DC 04/25/20 08:04 Quetiapine Fumarate (SEROquel) 75 mg QHS PO 04/03/20 21:00 04/25/20 10:37 DC 04/24/20 20:13 Tamsulosin HCl (Flomax) 0.8 mg DAILY PO 04/04/20 09:00 04/25/20 10:37 DC 04/25/20 08:05 Trazodone HCl (Desyrel) 50 mg QHS PO 04/03/20 21:00 04/25/20 10:37 DC 04/24/20 20:13 Atorvastatin Calcium (Lipitor) 40 mg QHS PO 04/03/20 21:00 04/25/20 10:37 DC 04/24/20 20:12 Artificial Tears (Refresh Classic) 1 drop PRN Q15MIN PRN OD DRY EYE 04/03/20 15:45 04/25/20 10:37 DC Donepezil HCl (Aricept) 5 mg HS PO 04/03/20 21:00 04/10/20 17:50 DC 04/09/20 20:25 Fluticasone Propionate (Flonase) 1 spray DAILY NS 04/04/20 09:00 04/25/20 10:37 DC 04/25/20 08:05 Fluticasone/ Vilanterol (Breo Ellipta 200-25 Mcg) 1 puff DAILY INH 04/04/20 09:00 04/25/20 10:37 DC 04/25/20 08:05 Loperamide HCl (Imodium) 2 mg PRN Q15MIN PRN PO DIARRHEA 04/03/20 15:45 04/25/20 10:37 DC Al Hydroxide/Mg Hydroxide (Mylanta Plus Xs) 30 ml PRN Q2HR PRN PO DYSPEPSIA 04/03/20 15:45 04/25/20 10:37 DC Melatonin (Melatonin) 3 mg QHS PO 04/03/20 21:00 04/04/20 18:46 DC 04/03/20 20:23 Thiamine HCl (Vitamin B-1) 100 mg DAILY PO 04/04/20 09:00 04/25/20 10:37 DC 04/25/20 08:03 Sodium Chloride (Saline Mist Nasal) 2 clifford PRN BID PRN NS NASAL CONGESTION 04/03/20 15:30 04/25/20 10:37 DC Acetaminophen (Tylenol) 650 mg PRN Q6HRS PRN PO MILD PAIN / TEMP > 100.3'F 04/03/20 16:30 04/25/20 10:37 DC 04/08/20 21:44 Multi-Ingredient Ointment (Analgesic [place]) 1 clifford PRN QID PRN TP MUSCLE PAIN 04/03/20 16:30 04/25/20 10:37 DC 04/07/20 01:56 Al Hydroxide/Mg Hydroxide (Mylanta Plus Xs) 15 ml PRN AFTMEALHC PRN PO DYSPEPSIA 04/03/20 16:30 04/04/20 08:38 DC Magnesium Hydroxide (Milk Of Magnesia) 2,400 mg PRN QHS PRN PO CONSTIPATION 04/03/20 16:30 04/25/20 10:37 DC Vitamin D (Vitamin D3) 50,000 unit WEEKLY PO 04/05/20 09:00 04/25/20 10:37 DC 04/19/20 08:16 Mirtazapine (Remeron) 7.5 mg QHS PO 04/04/20 21:00 04/10/20 17:50 DC 04/09/20 20:25 Quetiapine Fumarate (SEROquel) 12.5 mg 0900,1300,1700 PO 04/05/20 09:00 04/07/20 18:37 DC 04/07/20 17:05 Olanzapine (ZyPREXA ZYDIS) 2.5 mg PRN Q2HRS PRN PO PSYCHOSIS 04/04/20 18:45 04/25/20 10:37 DC 04/23/20 01:55 Potassium Chloride (Klor-Con) 40 meq 1X ONCE PO 04/04/20 21:30 04/04/20 21:32 DC 04/04/20 21:30 Potassium Chloride (Klor-Con) 20 meq DAILYWBKFT PO 04/05/20 08:00 04/25/20 10:37 DC 04/25/20 08:03 Oxycodone HCl (Roxicodone) 5 mg PRN Q6HRS PRN PO MOD-SEV PAIN 04/07/20 16:30 04/25/20 10:37 DC 04/25/20 08:03 Quetiapine Fumarate (SEROquel) 12.5 mg 0900,1700 PO 04/08/20 09:00 04/25/20 10:37 DC 04/25/20 08:03 Quetiapine Fumarate (SEROquel) 25 mg DAILYWLUN PO 04/08/20 12:00 04/25/20 10:37 DC 04/24/20 12:00 Donepezil HCl (Aricept) 10 mg HS PO 04/10/20 21:00 04/25/20 10:37 DC 04/24/20 20:13 Mirtazapine (Remeron) 15 mg QHS PO 04/10/20 21:00 04/25/20 10:37 DC 04/24/20 20:13 Sertraline HCl (Zoloft) 25 mg DAILY PO 04/11/20 09:00 04/13/20 21:00 DC 04/13/20 08:08 Sertraline HCl (Zoloft) 50 mg DAILY PO 04/14/20 09:00 04/25/20 10:37 DC 04/25/20 08:04 I have reviewed the current psychotropics carefully including drug interactions. Risk benefit ratio favors no change other than as noted in my dictated progress note. Diagnosis: Problems: (1) Impulse control disorder, unspecified (2) Anxiety disorder, unspecified (3) Dementia, vascular, with depression (4) Dementia, vascular, with delusions (5) Dementia in Alzheimer's disease with depression (6) Dementia in Alzheimer's disease with delusions (7) Dementia of the Alzheimer's type with early onset with behavioral disturbance (8) Major neurocognitive disorder YOLANDA BURGESS MD Apr 25, 2020 22:13
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
== END 2020-04-25 10:15 | DRG 885 ==
LOC: GEROPSY 13:15
PROVIDERS: ADMIT Psychiatry & Neurology Psychiatry; ATTEND Psychiatry & Neurology Psychiatry
DX: F33.3 Major depressive disorder, recurrent, severe with psychotic symptoms (principal); F01.51 Vascular dementia, unspecified severity, with behavioral disturbance; F02.81 Dementia in other diseases classified elsewhere, unspecified severity, with behavioral disturbance; G30.9 Alzheimer's disease, unspecified; E78.5 Hyperlipidemia, unspecified; F41.9 Anxiety disorder, unspecified; F63.9 Impulse disorder, unspecified; G47.00 Insomnia, unspecified; I10 Essential (primary) hypertension; M10.9 Gout, unspecified; N40.0 Benign prostatic hyperplasia without lower urinary tract symptoms; Z20.822 Contact with and (suspected) exposure to COVID-19; Z66 Do not resuscitate; Z79.899 Other long term (current) drug therapy
CPT/HCPCS: 36415; 80053; 83540; 83550; 84436; 84480; 85025; U0003; 97530; 97535